=== PATIENT | female | born 1995 | race Caucasian/White ===

== ENCOUNTER 2017-03-31 08:15 | Inpatient (IN) | payer OTHER, BC, MEDICAID ==
[~2017-03-31 08:15] MED LIST: Buffered Lidocaine 0.9% SYRIN* 5 ML/SYR SYRINGE INTRADERM ONE; Sodium Citrate/Citric Acid* 15 ML UDC PO ONE
[2017-03-31] MEDS ORDERED: Sodium Citrate/Citric Acid* 15 ML UDC ONE (08:27)
[2017-03-31] MEDS ORDERED: Heparin VIAL(*) 5000 UNITS/ML VIAL (FIVE THOUSAND) ONE (08:28)
[2017-03-31] MEDS ORDERED: Buffered Lidocaine 0.9% SYRIN* 5 ML/SYR SYRINGE ONE (08:28)
[2017-03-31] MEDS ORDERED: ceFAZolin 1 GM ADVAN(*) 1 GM ADDV.VIAL IVPB ONE (08:28)
[2017-03-31] MEDS ORDERED: ceFAZolin 2 GM PREMIX (*) 50 ML IVPB ONE (08:28)
[2017-03-31] MEDS ORDERED: Clindamycin 900 MG IVPREMIX(* 900 MG/50 ML SDV IV ONE (08:28)
[2017-03-31] MEDS ORDERED: Bupivacaine 0.25% SDV* 30 ML ONE (09:52)
[2017-03-31] MEDS ORDERED: Rocuronium* 10 MG/ML VIAL ONE (10:05)
[2017-03-31] MEDS ORDERED: Lidocaine 2% PF * 5 ML VIAL ONE (10:05)
[2017-03-31] MEDS ORDERED: Propofol* 10 MG/ML 20 ML BTL IV PUSH ONE (10:05)
[2017-03-31] MEDS ORDERED: fentaNYL* 50 MCG/ML 2 ML VIAL (100 MCG VIAL) ONE ×2 (10:06→12:24)
[2017-03-31] MEDS ORDERED: Midazolam* 1 MG/ML 2 ML VIAL (2 MG) ONE (10:06)
[2017-03-31] MEDS ORDERED: Dexamethasone IV* 4 MG/ML 1 ML (4 MG) ONE (10:56)
[2017-03-31] MEDS ORDERED: Neostigmine Methylsulfate* 2 MG/2 ML SYRINGE ONE (11:12)
[2017-03-31] MEDS ORDERED: Glycopyrrolate IV* 0.2 MG/ML 1 ML VIAL ONE (11:12)
[2017-03-31] MEDS ORDERED: Ondansetron INJ* 2 MG/ML VIAL ONE (11:13)
[2017-03-31] MEDS ORDERED: Ketorolac INJ* 30 MG/ML 1 ML VIAL ONE (11:13)
--- NOTE | 2017-03-31 12:21 | SURGPN ---
Brief Operative Note - Surgery Procedures: Procedures Pre-OP Diagnoses: Clinically severe obesity Post-op Diagnosis: same Procedure: Laparoscopic sleeve gastrectomy Surgeon: Chapincito Asst: STUART Barrett Anethesia: AASHISH Rodriguez EBL: minimal IVF: 1300cc LR Specimen: portion of stomach Drains: none
[2017-03-31] MEDS: fentaNYL* 50 MCG/ML 2 ML VIAL (100 MCG VIAL) IV PRN ×2 (12:24→12:30)
[2017-03-31] MEDS ORDERED: diPHENhydraMINE IV* 50 MG/ML 1 ml VIAL (BENADRYL) SLOW PUSH PRN (12:30)
[2017-03-31] MEDS ORDERED: HYDROmorphone* 1 MG/ML 1 ML SYR IV PRN ×2 (12:30→12:55)
[2017-03-31] MEDS ORDERED: HYDROcodone/ACET. 7.5/325 LIQ* 15 ML UDC PO PRN (12:30)
[2017-03-31] MEDS ORDERED: Acetaminophen ADULT LIQ* 650 MG/20.3 ML UDC PO PRN (12:30)
[2017-03-31] MEDS ORDERED: Ondansetron INJ* 2 MG/ML VIAL IV PRN (12:30)
[2017-03-31] MEDS ORDERED: DiMENhydriNATE IV* 50 MG/ML VIAL ONE (12:33)
[2017-03-31] MEDS ORDERED: HYDROmorphone* 1 MG/ML 1 ML SYR ONE (12:55)
[2017-03-31] MEDS ORDERED: Famotidine IV* 10 MG/ML 2 ML (20 mg) ONE (14:49)
[2017-03-31] MEDS: HYDROmorphone* 1 MG/ML 1 ML SYR IV PRN ×3 (14:55→22:09)
[2017-03-31] MEDS: Heparin VIAL(*) 5000 UNITS/ML VIAL (FIVE THOUSAND) SUBCUT SCH ×2 (14:57→22:09)
[2017-03-31] MEDS: Ketorolac INJ* 30 MG/ML 1 ML VIAL IV PRN ×2 (16:24→22:09)
[2017-04-01] MEDS: HYDROmorphone* 1 MG/ML 1 ML SYR IV PRN (01:53)
[2017-04-01] MEDS ORDERED: Famotidine IV* 10 MG/ML 2 ML (20 mg) ONE (03:29)
[2017-04-01] MEDS: Heparin VIAL(*) 5000 UNITS/ML VIAL (FIVE THOUSAND) SUBCUT SCH ×2 (05:48→14:26)
[2017-04-01] MEDS: Ketorolac INJ* 30 MG/ML 1 ML VIAL IV PRN ×2 (05:49→14:35)
--- NOTE | 2017-04-01 09:15 | PN ---
Progress Note - Progress Note Date of Service: 04/01/17 SOAP: Subjective: Pt seen and examined. No N/V. ambulating, urinating, thirsty. Objective: af vss lungs clear abdo: soft/ NT, dressings intact no calf tenderness UGi wnl Assessment: POD 1 sleeve gastrectomy Plan: advance diet d/c planning
--- NOTE | 2017-04-01 09:19 | RAD ---
INDICATION: Status post laparoscopic gastric sleeve procedure of evaluate for leak. COMPARISON: There are no prior studies available for comparison. Technique: An upper GI series exam was performed with Gastrografin contrast. The patient is status post one day post gastric sleeve procedure. Approximately 1.7 minutes of intermittent fluoroscopic guidance were used during the exam. Findings: There is a small amount of free intraperitoneal air under the right hemidiaphragm seen on the initial sheet rock taper image. The patient is status post laparoscopic gastric sleeve procedure. The esophageal peristalsis appeared normal. There is narrowing of the body of the stomach consistent with the patient's surgery. There is slight holdup of contrast in the proximal stomach. The stomach emptied normally. There is no evidence for free intraperitoneal leakage of contrast. IMPRESSION: 1. SMALL AMOUNT OF FREE INTRAPERITONEAL AIR CONSISTENT WITH THE PATIENT'S RECENT SURGERY. 2. STATUS POST GASTRIC SLEEVE PROCEDURE, NO EVIDENCE FOR ANASTOMOTIC LEAK. CPT II Codes: 6045F
[2017-04-01] MEDS ORDERED: D5W 1/2 NS KCl 20 Meq 1000 ML* 1,000 ML IV SCH (14:00)
[2017-04-01 15:29] VITALS: BP 137/78
[2017-04-01] MEDS ORDERED: HYDROcodone/ACET. 7.5/325 LIQ* 15 ML UDC PO PRN (15:41)
--- NOTE | 2017-04-01 16:17 | OP ---
CC: Dr. Shawn Bravo * DATE OF OPERATION: 03/31/17 - ROOM #350 DATE OF : 89 SURGEON: Dony Beckham MD CANAL DRIVER: STUART Welsh ANESTHESIOLOGIST: Dr. Kyle Rodriguez. ANESTHESIA: General anesthesia. PRE-OP DIAGNOSIS: Clinically severe obesity. POST-OP DIAGNOSIS: Clinically severe obesity. OPERATIVE PROCEDURE: Laparoscopic sleeve gastrectomy. ESTIMATED BLOOD LOSS: Minimal blood loss. FLUIDS: 1300 cc of crystalloid fluid given. SPECIMENS: Portion of the stomach. DRAINS: None. DESCRIPTION OF PROCEDURE: The patient was identified in the preoperative area, marked. Case discussed with her again and consent signed. The patient was taken to the operating room, placed on the operating table in the supine position. Preoperative antibiotics were given. Sequential devices were placed on bilateral lower extremities. General anesthesia was induced. The patient's abdomen was prepped and draped in the standard surgical fashion. A time-out was performed. A left upper quadrant incision was made. This was deepened down into the anterior fascia, which was elevated and a Veress needle was inserted into the abdominal cavity, which was then allowed to insufflate to a pressure of 15 mmHg. The patient tolerated the insufflation well. Hettinger between the xiphoid and the umbilicus, just closer to the umbilicus, left of midline, a 12-mm trocar was inserted. The laparoscope was inserted through this and the Veress needle was removed. There was no evidence of injury. A 5 mm trocar was then inserted through this site and additional 5 mm placed in the left lateral site. Additional 12 mm was placed in the right upper quadrant. Attention was then turned towards the stomach. This was decompressed with the OG tube, which was then removed. The patient was placed in a steep reverse Trendelenburg position. The liver was retracted anteriorly and to the right with a Mia retractor that was inserted through another incision at the subxiphoid area. This gave us ability to see the gastroesophageal fat pad. This was retracted towards the right lower quadrant. Blunt dissection was carried out to expose the left arturo. Attention was then turned towards the greater curvature of the stomach and the pylorus. Approximately 6 cm from the pylorus, a retrogastric window was made along the greater curvature. The vasculature to the greater curvature was taken with a LigaSure device right up to the angle of His. Posterior attachments were similarly taken until the stomach could be fully rotated along its axis. Next, a 12 mm trocar at the right upper quadrant was upsized with 15 and a 60-mm black JONI stapler was placed along the greater curvature just 6 cm proximal to the pylorus and extending towards the incisura. Prior to firing the stapler, a 40-Ethiopian bougie was inserted and placed into the distal stomach. Additional firings of 60-mm purple JONI stapling devices with reinforcement strips were utilized right to the top of the stomach, taking care to flare out laterally for the last staple load staying outside the gastroesophageal soft pad. Hemostasis was achieved with 2 clips along the vasculature of the greater curvature. The resected portion of the stomach was then placed in an endoscopic retrieval bag. Mia retractor was removed. There was no evidence of bleeding. Hemostasis was excellent and the specimen was taken through the right upper quadrant port site. The port site was then reapproximated with 0 Polysorb suture with an Endo Close device in a simple fashion. The abdomen was allowed to collapse and all trocars were removed under direct vision. Skin gordon were placed at the skin incision followed by sterile dressing. The patient tolerated the procedure well, was woken up in the OR, and transferred to the PACU in stable condition. [id number]/[facility] #: [id number] GUERLINE
== END 2017-04-01 17:00 | disposition home or self-care (01) | DRG 403 ==
LOC: AA 08:15 → SSU 14:08
PROVIDERS: ADMIT Surgery; ATTEND Surgery
PROC: 0DB64Z3 Excision of Stomach, Percutaneous Endoscopic Approach, Vertical (ICD-10-PCS; principal; 2017-03-31 09:30)
DX: E66.01 Morbid (severe) obesity due to excess calories (principal); F50.81 Binge eating disorder; F32.9 Major depressive disorder, single episode, unspecified; F41.9 Anxiety disorder, unspecified; Z90.49 Acquired absence of other specified parts of digestive tract; Z82.49 Family history of ischemic heart disease and other diseases of the circulatory system; Z80.41 Family history of malignant neoplasm of ovary; Z80.52 Family history of malignant neoplasm of bladder; Z68.42 Body mass index [BMI] 45.0-49.9, adult
CPT/HCPCS: 36415; 74246; 81025; 84300; 88307; 94760; A9270-GY; J0690; J1100; J1170; J1240; J1644; J1885; J2250; J2405; J2704; J3010

== ENCOUNTER 2017-05-12 12:12 | Emergency (ER) | payer OTHER, BC, MEDICAID ==
[2017-05-12 14:06] VITALS: BP 125/69
--- NOTE | 2017-05-12 14:09 | ED ---
Skin Complaint - HPI Summary HPI Summary: Fantasma was on a towel that she used and she noted this spikes/spines stuck in her skin. Today, there was increased redness and irritation. it was itchy at first. mildly tender. - History of Current Complaint Chief Complaint: UCSkin Time Seen by Provider: 05/12/17 13:53 Stated Complaint: RASH Hx Obtained From: Patient Onset/Duration: Started Days Ago Skin Exposure Onset/Duration: Days Ago Timing: Constant Onset Severity: Mild Current Severity: Moderate Skin Location: Discrete - suhail wrists. Aggravating Symptom(s): Nothing, Touch Alleviating Symptom(s): Nothing Associated Signs & Symptoms: Tenderness - Additional Pertinent History Primary Care Physician: [id number] - Allergy/Home Medications Allergies/Adverse Reactions: Allergies Allergy/AdvReac Type Severity Reaction Status Date / Time No Known Allergies Allergy Verified 05/12/17 13:59 PMH/Surg Hx/FS Hx/Imm Hx Previously Healthy: Yes Endocrine/Hematology History: Denies: Hx Diabetes, Hx Thyroid Disease Cardiovascular History: Denies: Hx Hypertension Respiratory History: Denies: Hx Asthma, Hx Chronic Obstructive Pulmonary Disease (COPD) GI History: Reports: Hx Gastroesophageal Reflux Disease, Other GI Disorders - HX OF APPENDECTOMY, CHOLECYSTECTOMY Denies: Hx Ulcer History: Reports: Other Problems/Disorders - HX OF PCOS Sensory History: Reports: Hx Contacts or Glasses - GLASSES Denies: Hx Hearing Aid Opthamlomology History: Reports: Hx Contacts or Glasses - GLASSES Neurological History: Reports: Other Neuro Impairments/Disorders - NUMBNESS, TINGLING IN HANDS OCCASIONALLY UPON WAKING Psychiatric History: Reports: Hx Anxiety, Hx Depression, Hx Panic Disorder, Hx Inpatient Treatment - IN PT TREATMENT FOR A WEEK A TEENAGER, OK NOW Denies: Hx of Violent Episodes Against Others - Surgical History Surgery Procedure, Year, and Place: Gall Bladder, 2009. [place], 2006 Hx Anesthesia Reactions: No Infectious Disease History: Denies: Hx Clostridium Difficile, Hx Hepatitis, Hx Human Immunodeficiency Virus (HIV), Hx of Known/Suspected MRSA, Hx Shingles, Hx Tuberculosis, History Other Infectious Disease - Family History Known Family History: Positive: Cardiac Disease, Hypertension - Social History Lives: With Family Alcohol Use: None Alcohol Amount: 2 DRINKS IN 6 MONTHS Hx Substance Use: No Substance Use Type: Reports: None Hx Tobacco Use: No Smoking Status (MU): Never Smoked Tobacco Have You Smoked in the Last Year: No Review of Systems Positive: Rash All Other Systems Reviewed And Are Negative: Yes Physical Exam Triage Information Reviewed: Yes Vital Signs Reviewed: Yes Appearance: Positive: Well-Appearing, No Pain Distress, Obese Skin: Positive: Other - suhail patches of pink skin slightly swollen. no streaking or significant tenderness. Head/Face: Positive: Normal Head/Face Inspection Eyes: Positive: Normal ENT: Positive: Normal ENT inspection Neck: Positive: Supple, Nontender, No Lymphadenopathy Respiratory/Lung Sounds: Positive: Clear to Auscultation Cardiovascular: Positive: Normal Abdomen Description: Positive: Nontender, No Organomegaly, Soft Musculoskeletal: Negative: Edema Left, Edema Right Neurological: Positive: Sensory/Motor Intact, Alert, Oriented to Person Place, Time Psychiatric: Positive: Normal, Affect/Mood Appropriate Course/Dx - Diagnoses Provider Diagnoses: Toxic effect of venom of caterpillars Discharge - Discharge Plan Condition: Good Disposition: HOME Prescriptions: Triamcinolone 0.1% Oint (NF) [Triamcinolone Acetonide] 1 applic TOPICAL BID #30 gm Patient Education Materials: Insect Bite or Sting (ED) Referrals: Shawn Bravo DO [Primary Care Provider] - If Needed
== END 2017-05-12 14:20 | disposition home or self-care (01) ==
LOC: UCCORT 12:12
DX: T63.431A Toxic effect of venom of caterpillars, accidental (unintentional), initial encounter (principal); Y92.9 Unspecified place or not applicable; X58.XXXA Exposure to other specified factors, initial encounter; K21.9 Gastro-esophageal reflux disease without esophagitis
CPT/HCPCS: 99212; G0463

== ENCOUNTER 2018-05-25 19:25 | Emergency (ER) | payer OTHER, BC ==
--- OUTSIDE RECORDS SUMMARY | 2018-05-25 20:26 | XMS REPORT ---
:1995 External Reference #:[id number] Author Organization [facility] Address [address] [place] [address] Phone [phone] Care Team Providers Name Role Phone BLANCA Ramsey Care Team Information Line Patrolman Unavailable Payers Type Date Identification Numbers Payment Provider Subscriber Commercial Effective: Policy Number: [facility] Luomings 2014 [id number] Service Group Number: [id number] [address] PayID: [id number] [place] [address] Medigap Part B Effective: Policy Number: Julita HOUGH/NABEEL Yas Nasim 2014 [id number] [facility] PayID: [id number] [address] [address] [place] [address] Medigap Part B Effective: 2015 Policy Number: Medicaid [place] En Luomings [id number] PayID: [id number] [address] [place] [address] Problems Date Description Provider Status Onset: 10/04/2015 H/O: depression Evin Downing CNM Active Onset: 10/04/2015 Anxiety disorder Evin Downing CNM Active Family History Date Family Member(s) Problem(s) Comments Father A&W Mother A&W Children 1 First Son A&W Siblings 5 First Brother A&W Second Brother A&W Third Brother A&W First Sister A&W Second Sister A&W Paternal Grandfather due to Bladder Cancer () Paternal Grandmother A&W Maternal Grandfather A&W Maternal Grandmother due to Ovarian Cancer () Social History Type Date Description Comments Education Highest Level Completed Is Ged Marital Status Single Lives With Son Pets 1 dog Pets 3 cats 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 Environmental Hazards Low Lead Risk Cigarette Use Never Smoked Cigarettes ETOH Use Occasionally consumes alcohol Recreational Drug Use Does Not Use Drugs Smoking Patient has never smoked Daily Caffeine Does not consume caffeine Exercise Type/Frequency Exercises rarely Seat Belt/Car Seat Always uses seat belt Currently Active Patient is currently sexually active Contraceptive Methods Current methods include condoms STD's Chlamydia Allergies, Adverse Reactions, Alerts Date Description Reaction Status Severity Comments 04/24/2015 NKDA active Medications Medication Date Status Form Strength Qnty SIG Indications Ordering Provider Fluconazole 03/15/ Active Tablets 150mg 2tabs 1 po and Lisa 2018 repeat in [facility], 48 hours. ANP-C Zoloft / Active Tablets 150mg Unknown 0000 Xyzal Allergy / Active Unknown 24HR 0000 Multivitamin / Active Unknown Women 0000 Buspirone HCL / Active Tablets 15mg Unknown 0000 Diflucan 03/09/ Hx Tablets 150mg 2tabs 1 by mouth Lisa 2018 - times 1 day Jump, 03/11/ repeat in ANP-C 2018 48 hours Terazol 7 07/19/ Hx Cream 0.4% 45gm 1 Ephraim Soto 2016 - applicator Gelber, 03/03/ at bedtime M.D. 2018 x 7 Keflex 07/05/ Hx Capsules 500mg 14caps 1 by mouth Nisha 2016 - twice a day Krzysztof 07/19/ x 7 days 2016 Eliane 07/05/ Hx Tablets 0.35mg 84tabs 1 by mouth Nisha 2016 - every day Krzysztof 03/07/ start 2018 07/05/17 Naproxen 05/22/ Hx Tablets ER 500mg 30tabs take 1 by Phaelon Sodium ER 2015 - 24HR mouth with MD Cherrie 07/19/ food every 2016 12 hours for next 5 days then as needed for pain Ortho 10/31/ Hx Tablets 0.18/0.215 28tabs 1 by mouth Valery Tri-Cyclen Lo 2015 - /0.25 every day Suzy 05/15/ mg-25 mcg , CNM 2015 No Active 10/03/ Hx Mahrie Medications 2016 - Downing, 10/31/ CNM 2016 Diflucan 09/27/ Hx Tablets 150mg 2tabs take 1 by Evin 2016 - mouth for Downing, 10/02/ yeast. CNM 2016 repeat x 1 as needed Terazol 3 07/22/ Hx Cream 0.8% 1tube use 1 Rosa M 2014 - applicator Evelia, 09/12/ every night LM 2016 at bedtime x 3 nights Terconazole 07/02/ Hx Cream 0.8% 20gm 1 Rose Marie 2014 - applicator Willard, 07/06/ per vagina CNM 2014 hs x 3 Medications Administered in Office Medication Date Status Form Strength Qnty SIG Indications Ordering Provider No PT Tbco Administered Injection Lisa SCRN RNG 018 BLANCA Dlaal PT SCRN Tbco Administered Injection Lisa Id as Non User 018 BLANCA Dalal Immunizations CPT Code Status Date Vaccine Lot # [id number] Given 07/25/2015 Tetnus, Diptheria Toxoids And Acellular Pertussis, [id number] PT > 7Yrs Old [id number] Given 06/18/2015 Influenza Virus Vaccine Split Virus Use For [id number] Individual 3Yr Older Vital Signs Date Vital Result Comment 05/04/2018 BP Systolic 126 mmHg BP Diastolic 84 mmHg Height 67 inches 5'7" Weight 208.00 lb BMI (Body Mass Index) 32.6 kg/m2 Last Menstrual Period [id number] 2 Parity 1 03/07/2018 BP Systolic 126 mmHg BP Diastolic 72 mmHg Height 67 inches 5'7" Weight 230.00 lb BMI (Body Mass Index) 36.0 kg/m2 Last Menstrual Period 1857908 2 Parity 1 07/19/2017 BP Systolic 134 mmHg BP Diastolic 90 mmHg Height 67 inches 5'7" Weight 246.00 lb BMI (Body Mass Index) 38.5 kg/m2 Last Menstrual Period [id number] 2 Parity 1 07/05/2017 BP Systolic 120 mmHg BP Diastolic 80 mmHg Height 67 inches 5'7" Weight 248.00 lb BMI (Body Mass Index) 38.8 kg/m2 Last Menstrual Period 6282419 2 Parity 1 03/29/2017 BP Systolic 128 mmHg BP Diastolic 84 mmHg Height 67 inches 5'7" Weight 290.00 lb BMI (Body Mass Index) 45.4 kg/m2 Last Menstrual Period 5302593 2 Parity 1 08/10/2016 BP Systolic 120 mmHg BP Diastolic 70 mmHg Height 67 inches 5'7" Weight 291.00 lb BMI (Body Mass Index) 45.6 kg/m2 2 Parity 1 05/22/2016 BP Systolic 124 mmHg BP Diastolic 72 mmHg Height 67 inches 5'7" Weight 274.00 lb BMI (Body Mass Index) 42.9 kg/m2 Last Menstrual Period 9473509 2 Parity 1 11/01/2015 BP Systolic 124 mmHg BP Diastolic 70 mmHg Height 67 inches 5'7" Weight 242.00 lb BMI (Body Mass Index) 37.9 kg/m2 2 Parity 1 10/04/2015 BP Systolic 138 mmHg BP Diastolic 76 mmHg Height 67 inches 5'7" Weight 246.00 lb BMI (Body Mass Index) 38.5 kg/m2 2 Parity 1 04/24/2015 BP Systolic 120 mmHg BP Diastolic 66 mmHg Height 67 inches 5'7" Weight 195.00 lb BMI (Body Mass Index) 30.5 kg/m2 Results Test Date Test Result H/L Range Note Laboratory test 03/07/2018 Culture Genital & SEE RESULT 1 finding Sensitivity BELOW Urine Culture And 07/19/2017 Urine Culture SEE RESULT 2 Sensitivities BELOW Urine Culture And 07/05/2017 Urine Culture SEE RESULT 3 Sensitivities BELOW CBC With No Diff 09/29/2015 White Blood Count 12.6 10^3/uL High 3.5-10.8 Red Blood Count 4.07 10^6/uL 4.0-5.4 Hemoglobin 12.1 g/dL 12.0-16.0 Hematocrit 36 % 35-47 Mean Corpuscular Volume 89 fL 80-97 Mean Corpuscular Hemoglobin 30 pg 27-31 Mean Corpuscular HGB Conc 34 g/dL 31-36 Red Cell Distribution Width 12 % 10.5-15 Platelet Count 288 10^3/uL 150-450 Mean Platelet Volume 9 um3 7.4-10.4 Laboratory test finding 09/29/2015 Uric Acid 8.9 mg/dL High 2.3-6.6 Comp Metabolic Panel 09/29/2015 Sodium 133 mmol/L 133-145 Potassium 4.1 mmol/L 3.5-5.0 Chloride 103 mmol/L 101-111 Co2 Carbon Dioxide 21 mmol/L Low 22-32 Anion Gap 9 mmol/L 2-11 Glucose 90 mg/dL 70-100 Blood Urea Nitrogen 10 mg/dL 6-24 Creatinine 0.78 mg/dL 0.51-0.95 BUN/Creatinine Ratio 12.8 8-20 Calcium 9.6 mg/dL 8.6-10.3 Total Protein 6.5 g/dL 6.4-8.9 Albumin 3.4 g/dL 3.2-5.2 Globulin 3.1 g/dL 2-4 Albumin/Globulin Ratio 1.1 1-3 Total Bilirubin 0.30 mg/dL 0.2-1.0 Alkaline Phosphatase 127 U/L High 34-104 Alt 9 U/L 7-52 Ast 16 U/L 13-39 Egfr Non- 92.4 >60 Egfr 118.8 >60 4 Type And Screen 09/29/2015 Patient Blood Type O Positive Antibody Screen NEGATIVE Laboratory test finding 09/29/2015 Urine Protein Negative Negative CBC With No Diff 09/29/2015 White Blood Count 11.3 10^3/uL High 3.5-10.8 Red Blood Count 4.12 10^6/uL 4.0-5.4 Hemoglobin 12.1 g/dL 12.0-16.0 Hematocrit 37 % 35-47 Mean Corpuscular Volume 90 fL 80-97 Mean Corpuscular Hemoglobin 29 pg 27-31 Mean Corpuscular HGB Conc 33 g/dL 31-36 Red Cell Distribution Width 13 % 10.5-15 Platelet Count 283 10^3/uL 150-450 Mean Platelet Volume 9 um3 7.4-10.4 Laboratory test finding 09/29/2015 Uric Acid 8.9 mg/dL High 2.3-6.6 Comp Metabolic Panel 09/29/2015 Sodium 133 mmol/L 133-145 Potassium 3.9 mmol/L 3.5-5.0 Chloride 103 mmol/L 101-111 Co2 Carbon Dioxide 20 mmol/L Low 22-32 Anion Gap 10 mmol/L 2-11 Glucose 91 mg/dL 70-100 Blood Urea Nitrogen 11 mg/dL 6-24 Creatinine 0.81 mg/dL 0.51-0.95 BUN/Creatinine Ratio 13.6 8-20 Calcium 9.3 mg/dL 8.6-10.3 Total Protein 6.4 g/dL 6.4-8.9 Albumin 3.3 g/dL 3.2-5.2 Globulin 3.1 g/dL 2-4 Albumin/Globulin Ratio 1.1 1-3 Total Bilirubin 0.20 mg/dL 0.2-1.0 Alkaline Phosphatase 117 U/L High 34-104 Alt 9 U/L 7-52 Ast 14 U/L 13-39 Egfr Non- 88.4 >60 Egfr 113.7 >60 5 Laboratory test finding 09/05/2015 Genital For GRP B Strep SEE RESULT BELOW 6 Only Gardnerella/Yeast: Vaginal Dna SEE RESULT BELOW 7 Laboratory test 07/25/2015 Culture Genital & SEE RESULT BELOW 8 finding Sensitivity Laboratory test 07/11/2015 Glucose 1 HR Post 104 mg/dL 70-160 finding Prandial CBC With No Diff 07/11/2015 White Blood Count 12.5 10^3/uL High 3.5-10.8 Red Blood Count 3.68 10^6/uL Low 4.0-5.4 Hemoglobin 11.3 g/dL Low 12.0-16.0 Hematocrit 34 % Low 35-47 Mean Corpuscular Volume 93 fL 80-97 Mean Corpuscular Hemoglobin 31 pg 27-31 Mean Corpuscular HGB Conc 33 g/dL 31-36 Red Cell Distribution Width 12 % 10.5-15 Platelet Count 292 10^3/uL 150-450 Mean Platelet Volume 8 um3 7.4-10.4 Quad Screen 04/24/2015 HAN Interpretation SEE NOTE 9 Risk For NTD (Osb) LESS THAN 1:5000 10 Risk For Down Based On Age 1:1146 Risk For Down Based On SCR 1:4035 <1:270 Trisomy 18 Risk Based On SCR LESS THAN 1:5000 <1:100 11 Afp,Serum 27.7 NG/ML Adjusted Mom 0.94 12 HCG,Serum 47.778 IU/mL Mom 1.78 Estriol,Free 1.08 NG/ML Mom 1.25 Inhibin A 186 pg/mL Mom 1.26 Comment SEE NOTE 13 Date Of 1995 ENEDINA 10/05/2015 ENEDINA Determined By ULTRASOUND Gestational Age 16.6 WEEKS Weight 195 LBS Race =W Insulin Dependent Diabetic NO Repeat Sample NO Number Of Fetuses 1 History Of NTD NO Date Of Draw 04/24/2015 Food Sanitarian SEE NOTE 14 [place] Panel w/ Fragile X 04/24/2015 Abcc8-related hyperinsulinism Negative achromatopsia Negative alkaptonuria Negative alpha-1 antitrypsin deficiency Negative alpha-mannosidosis Negative Andermann syndrome Negative Arsacs Negative aspartylglycosaminuria Negative ataxia with vitamin E deficiency Negative ataxia-telangiectasia Negative autosomal recessive polycystic kidney disease Negative Bardet-Biedl syndrome, BBS1-related Negative Bardet-Biedl syndrome, [id number] Negative biotinidase deficiency Negative Stock syndrome Negative Morris disease Negative carnitine palmitoyltransferase Ia deficiency Negative carnitine palmitoyltransferase II deficiency Negative cartilage-hair hypoplasia Negative choroideremia Negative citrullinemia type 1 Negative CLN3-related neuronal ceroid lipofuscinosis Negative CLN5-related neuronal ceroid lipofuscinosis Negative Mccord syndrome Negative congenital disorder of glycosylation type Ia Negative congenital disorder of glycosylation type Ib Negative congenital English nephrosis Negative Costeff optic atrophy syndrome Negative cystic fibrosis Negative cystinosis Negative D-bifunctional protein deficiency Negative factor XI deficiency Negative familial dysautonomia Negative familial Mediterranean fever Negative Fanconi anemia type C Negative fragile X syndrome Negative galactosemia Negative Gaucher disease Negative GJB2-related DFNB1 nonsyndromic hearing loss and deafness Negative glutaric acidemia type 1 Negative glycogen storage disease type Ia Negative glycogen storage disease type Ib Negative glycogen storage disease type III Negative glycogen storage disease type V Negative Gracile syndrome Negative Hb beta chain-related hemoglobinopathy Negative hereditary fructose intolerance Negative hereditary thymine-uraciluria Negative Herlitz junctional epidermolysis bullosa, Lama3-related Negative Herlitz junctional epidermolysis bullosa, Lamb3-related Negative Herlitz junctional epidermolysis bullosa, Lamc2-related Negative hexosaminidase A deficiency Negative homocystinuria caused by cystathionine beta-synthase deficiency Negative Hurler syndrome Negative hypophosphatasia, autosomal recessive Negative inclusion body myopathy 2 Negative isovaleric acidemia Negative Patricia syndrome 2 Negative Krabbe disease Negative limb-girdle muscular dystrophy type 2D Negative limb-girdle muscular dystrophy type 2E Negative lipoamide dehydrogenase deficiency Negative long chain 7-gsblmfxmuhm-YqF dehydrogenase deficiency Negative maple syrup urine disease type 1B Negative medium chain acyl-CoA dehydrogenase deficiency Negative megalencephalic leukoencephalopathy with subcortical cysts Negative metachromatic leukodystrophy Negative mucolipidosis IV Negative oedett-sas-dclwk disease Negative Neb-related nemaline myopathy Negative Florin-Pick disease type C Negative Florin-Pick disease, SMPD1-associated Negative Nijmegen breakage syndrome Negative Northern epilepsy Negative Pendred syndrome Positive High 15 Pex1-related Zellweger syndrome spectrum Negative phenylalanine hydroxylase deficiency Negative polyglandular autoimmune syndrome type 1 Negative Pompe disease Negative PPT1-related neuronal ceroid lipofuscinosis Negative primary carnitine deficiency Negative primary hyperoxaluria type 1 Negative primary hyperoxaluria type 2 Negative Prop1-related combined pituitary hormone deficiency Negative pseudocholinesterase deficiency Negative pycnodysostosis Negative rhizomelic chondrodysplasia punctata type 1 Negative Salla disease Negative Segawa syndrome Negative short chain acyl-CoA dehydrogenase deficiency Negative Sjogren-Lon syndrome Negative Bexxg-Csdaj-Bzuzd syndrome Negative spinal muscular atrophy Negative steroid-resistant nephrotic syndrome Negative sulfate transporter-related osteochondrodysplasia Negative TPP1-related neuronal ceroid lipofuscinosis Negative tyrosinemia type I Negative Usher syndrome type 1F Negative Usher syndrome type 3 Negative very long chain acyl-CoA dehydrogenase deficiency Negative Mesfin disease Negative X-linked juvenile retinoschisis Negative PDF Report SEE IMAGE Urine Culture And Sensitivities 04/24/2015 Urine Culture SEE RESULT BELOW 16 1 SEE RESULT BELOW Name: EN ROUSE : [address]: Lisa Staton Acct: [id number] Unit: [id number] AGE: 22 Location: [facility] Re03/07/18 SEX: F Status: REG REF SPEC: [id number] CAMILA: 03/07/18-[address]: Lisa Staton REQ: [id number] RECD: 03/07/180819 STATUS: COMP _ SOURCE: VAGINAL SPDESC: ORDERED: Genital Culture COMMENTS: [id number] Procedure Result Reported Site Genital Culture Final 03/11/18- 1053 ML Organism 1 MADDISON DUBLINIENSIS Quantity 2+ Organism 2 NORMAL MILLER Quantity 2+ * ML - Main Lab . END OF REPORT DEPARTMENT OF PATHOLOGY, [address] [place] [address] Jose Guadalupe Balderas M.D. Director [facility] # [id number] 2 SEE RESULT BELOW Name: EN ROUSE : [address]: Ephraim Alvarado MD Acct: [id number] Unit: [id number] AGE: 22 Location: [facility] Re07/19/17 SEX: F Status: REG REF SPEC: [id number] CAMILA: 07/19/17-[address]: Ephraim Alvarado MD REQ: [id number] RECD: 07/19/17 STATUS: COMP _ SOURCE: URINE SPDESC: ORDERED: Urine Culture COMMENTS: [id number] Urine Source: Random Procedure Result Reported Site Urine Culture Final 07/21/17- 1053 ML No Growth (<1,000 CFU/mL) * ML - MAIN LAB (PSYCHIATRIC1) . END OF REPORT * ML=Testing performed at Main Lab DEPARTMENT OF PATHOLOGY, [address] [place] [address] Jose Guadalupe Balderas M.D. Director [facility] # [id number] 3 SEE RESULT BELOW Name: EN ROUSE : [address]: Nisha Blankenship MD Acct: [id number] Unit: [id number] AGE: 21 Location: [facility] Re07/05/17 SEX: F Status: REG REF SPEC: [id number] CAMILA: 07/05/17-1356 [facility] DR: Nisha Blankenship MD REQ: [id number] RECD: 07/05/177059 STATUS: COMP _ SOURCE: URINE SPDES: ORDERED: Urine Culture COMMENTS: [id number] Urine Source: Random Procedure Result Reported Site Urine Culture Final 07/07/17- 0908 ML No growth of clinically significant organisms * ML - MAIN LAB (PSYCHIATRIC1) . END OF REPORT * ML=Testing performed at Main Lab DEPARTMENT OF PATHOLOGY, [address] [place] [address] Jose Guadalupe Balderas M.D. Director [facility] # [id number] 4 Because ethnic data is not always readily available, this report includes an eGFR for both -Americans and non- Americans. The National Kidney Disease Education Program (NKDEP) does not endorse the use of the MDRD equation for patients that are not between the ages of 18 and 70, are , have extremes of body size, muscle mass, or nutritional status, or are non- or non-. According to the National Kidney Foundation, irrespective of diagnosis, the stage of the disease is based on the level of kidney function: Stage Description GFR(mL/min/1.73 m(2)) 1 Kidney damage with normal or decreased GFR 90 2 Kidney damage with mild decrease in GFR 60-89 3 Moderate decrease in GFR 30-59 4 Severe decrease in GFR 15-29 5 Kidney failure <15 (or dialysis) 5 Because ethnic data is not always readily available, this report includes an eGFR for both -Americans and non- Americans. The National Kidney Disease Education Program (NKDEP) does not endorse the use of the MDRD equation for patients that are not between the ages of 18 and 70, are , have extremes of body size, muscle mass, or nutritional status, or are non- or non-. According to the National Kidney Foundation, irrespective of diagnosis, the stage of the disease is based on the level of kidney function: Stage Description GFR(mL/min/1.73 m(2)) 1 Kidney damage with normal or decreased GFR 90 2 Kidney damage with mild decrease in GFR 60-89 3 Moderate decrease in GFR 30-59 4 Severe decrease in GFR 15-29 5 Kidney failure <15 (or dialysis) 6 SEE RESULT BELOW Name: EN ROUSE : [address]: Rosa M KELLY Acct: [id number] Unit: [id number] AGE: 20 Location: [facility] Re09/05/15 SEX: F Status: REG REF SPEC: [id number] CAMILA: 09/05/15-[address]: Rosa M KELLY REQ: [id number] RECD: 09/05/15 STATUS: COMP _ SOURCE: CER/VAG/RE SPDESC: ORDERED: Grp B Strp Scrn QUERIES: Is Patient Penicillin Allergic? N Is patient penicillin allergic and/or sensitivities needed? N Provider Requisition # C77#[id number]_ Procedure Result Reported Site Group B Strep Culture Screen Final 09/08/15- 1137 ML Group B Strep Screen Negative * ML - MAIN LAB (PSYCHIATRIC1) . END OF REPORT * ML=Testing performed at Main Lab DEPARTMENT OF PATHOLOGY, [address] [place] [address] Jose Guadalupe Balderas M.D. Director [facility] # [id number] 7 SEE RESULT BELOW Name: EN ROUSE : [address]: Rosa M KELLY Acct: [id number] Unit: [id number] AGE: 20 Location: [facility] Re09/05/15 SEX: F Status: REG REF SPEC: [id number] CAMILA: 09/05/15-[address]: Rosa M KELLY REQ: [id number] RECD: 09/05/15 STATUS: COMP _ SOURCE: VAGINAL SPDESC: ORDERED: Shannon,Yeast DNA, Trich DNA Procedure Result Reported Site Gardnerella/Yeast: Vaginal DNA Final 09/06/15- 1435 ML Organism 1 Negative Gardnerella Organism 2 POSITIVE MADDISON The presence of G. vaginalis, although suggestive, is not diagnostic for bacterial vaginosis. Results should be interpreted in conjuction with other clinical and laboratory data available. Women with vaginal discharge should be evaluated for risk factors of cervicitis and pelvic inflammatory disease, toxic shock syndrome (S.aureus), and if present, evaluated for organisms not included in this assay such as N. gonorrhoeae, C. trachomatis, Mobiluncus, Mycoplasma and/or Prevotella. Mixed infections may occur. The performance of this test on patient specimens collected during or immediately after antimicrobial therapy is unknown. The presence or absence of Maddison species, or G. vaginalis cannot be used as a test for therapeutic success or failure. Trichomonas: Vaginal DNA Probe Final 09/06/15- 1435 ML Organism 1 Negative Trichomonas CONTINUED ON NEXT PAGE * ML=Testing performed at [facility] DEPARTMENT OF PATHOLOGY, [address] [place] [address] Jose Guadalupe Balderas M.D. Director [facility] # [id number] Patient: EN ROUSE [id number] (Continued) Specimen: [id number] Collected: 09/05/15-1029 Received: 09/05/15-1701 (Continued) Procedure Result Reported Site Trichomonas: Vaginal DNA Probe Final (continued) 09/06/15- 1435 The presence or absence of T. vaginalis cannot be used as a test for therapeutic success or failure. * ML - MAIN LAB ([facility]) . END OF REPORT * ML=Testing performed at Main Lab DEPARTMENT OF PATHOLOGY, [address] [place] [address] Jose Guadalupe Balderas M.D. Director [facility] # [id number] 8 SEE RESULT BELOW Name: ROUSE,EN : [address]: Ellie Willard [facility] Acct: [id number] Unit: [id number] AGE: 20 Location: [facility] Re07/25/15 SEX: F Status: REG REF SPEC: [id number] CAMILA: 07/25/15 [facility] DR: Ellie Willard [facility] REQ: [id number] RECD: 07/29/15 STATUS: COMP _ SOURCE: [facility]: ORDERED: Genital Culture Procedure Result Reported Site Genital Culture Final 08/01/15- 1216 ML Organism 1 KLEBSIELLA PNEUMONIAE Quantity 3+ Organism 2 STAPHYLOCOCCUS AUREUS Quantity 2+ Organism 3 NORMAL MILLER Quantity 3+ Routine genital cultures do not include selective agar for Neisseria gonorrhoeae. Molecular testing offers better test sensitivity and therefore is the preferred test methodology for identifying this organism. 1. KLEBSIELLA PNEUMONIAE M.I.C. RX --------- ------ Ampicillin >=32 R Cefazolin <=4 S Cefepime <=1 S Ceftriaxone <=1 S Ciprofloxacin <=0.25 S Gentamicin <=1 S Levofloxacin <=0.12 S Meropenem <=0.25 S Nitrofurantoin 64 I Tetracycline <=1 S Pipercillin/Tazobactam <=4 S Trimethoprim/Sulfamethoxazole <=20 S CONTINUED ON NEXT PAGE * ML=Testing performed at Main Lab DEPARTMENT OF PATHOLOGY, [address] [place] [address] Jose Guadalupe Balderas M.D. Director [facility] # [id number] Patient: ROUSEMARY LOU BreauxA [id number] (Continued) Specimen: [id number] Collected: 07/25/15 Received: 07/29/15 (Continued) Procedure Result Reported Site Genital Culture Final (continued) 08/01/15- 1216 1. KLEBSIELLA PNEUMONIAE (continued) M.I.CTerell RX --------- ------ Amoxicillin/Clavulanic Acid <=2 S Aztreonam <=1 S 2. STAPHYLOCOCCUS AUREUS M.I.C. RX --------- ------ Penicillin >=0.5 R Clindamycin <=0.25 S Erythromycin <=0.25 S Gentamicin <=0.5 S Linezolid 2 S Nitrofurantoin <=16 S Oxacillin 0.5 S * Quinupristin/Dalfopristin <=0.25 S Rifampin <=0.5 S Tetracycline <=1 S Doxycycline - Deduced S * Minocycline - Deduced S Trimethoprim/Sulfamethoxazole <=10 S Vancomycin 1 S Imipenem-Deduced S * Ampicillin/Sulbactam-Deduced S Cefazolin-Deduced S * These antibiotics are not available in the [facility] Formulary Contact the Microbiology Department for any additional antibiotic reporting. CONTINUED ON NEXT PAGE * ML=Testing performed at Main Lab DEPARTMENT OF PATHOLOGY, [address] [place] [address] Jose Guadalupe Balderas M.D. Director [facility] # [id number] Patient: EN ROUSE [id number] (Continued) Specimen: [id number] Collected: 07/25/15 Received: 07/29/15 (Continued) Procedure Result Reported Site Genital Culture Final (continued) Contact the Microbiology Department for any additional antibiotic reporting. * ML - MAIN LAB (PSYCHIATRIC1) . END OF REPORT * ML=Testing performed at Main Lab DEPARTMENT OF PATHOLOGY, [address] [place] [address] Jose Guadalupe Balderas M.D. Director [facility] # [id number] 9 SCREEN NEGATIVE FOR OPEN NTD, DS AND TRISOMY 18. 10 LESS THAN 1:5000 11 LESS THAN 1:5000 12 ADJUSTED AFP MOM INTERPRETIVE CUTOFFS: <2.50 ADJUSTED MOM <1.90 ADJUSTED MOM FOR INSULIN-DEPENDENT DIABETES <4.00 ADJUSTED MOM FOR TWINS <3.50 ADJUSTED MOM FOR TWINS INSULIN-DEPENDENT DIABETES <4.50 ADJUSTED MOM FOR TRIPLETS <4.00 ADJUSTED MOM FOR TRIPLETS INSULIN-DEPENDENT DIABETES 13 PERFORMANCE OF MATERNAL SERUM AFP, HCG, ESTRIOL, AND DIMERIC INHIBIN A PROVIDES A USEFUL SCREENING TEST FOR DETECTION OF OPEN NEURAL TUBE DEFECTS AND SOME CHROMOSOMAL ABNORMALITIES. IT SHOULD BE NOTED THAT NORMAL RESULTS CAN NEVER GUARANTEE THE OF A NORMAL BABY AND THAT 2 TO 3 PERCENT OF [place] HAVE SOME TYPE OF PHYSICAL OR MENTAL DEFECT, MANY OF WHICH ARE UNDETECTABLE THROUGH ANY KNOWN DIAGNOSTIC TECHNIQUE. THIS IS A SCREENING TEST, NOT A DIAGNOSTIC TEST. THIS RISK ASSESSMENT REPORT IS BASED IN PART ON DEMOGRAPHIC DATA PROVIDED BY THE ORDERING PHYSICIAN. PLEASE NOTIFY THE LAB PROMPTLY IF ANY DATA IS INCORRECT. FOR ASSISTANCE WITH RECALCULATIONS, PLEASE CALL YOUR LOCAL [facility] AT . FOR ASSISTANCE WITH INTERPRETATION OF THESE RESULTS, PLEASE CALL [phone]. 14 REVIEWED BY Jerilyn NEGRO M.D. 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 Carriers generally do not experience symptoms. 16 SEE RESULT BELOW Name: [place] : [address]: Ellie Willard CNM Acct: [id number] Unit: [id number] AGE: 19 Location: [facility] Re04/24/15 SEX: F Status: REG REF SPEC: [id number] CAMILA: 04/24/15-[address]: Ellie Willard CNM REQ: [id number] RECD: 04/25/15521 STATUS: COMP _ SOURCE: URINE SPDESC: ORDERED: Urine Culture Procedure Result Verified Site Urine Culture Final 04/27/15- 1007 ML No Growth Day 2 (<1,000 CFU/mL) * ML - MAIN LAB (PSC1) . END OF REPORT * ML=Testing performed at Main Lab DEPARTMENT OF PATHOLOGY, [address] [place] [address] Jose Guadalupe Balderas M.D. Director [facility] # [id number] Procedures Date CPT Code Description Status 05/04/2018 30236 Echography Transvaginal Completed 08/10/2016 69291 Echography Transvaginal Completed 09/30/2015 49398 Obstetric Care Routine Completed 08/22/2015 92024 Biophysical Profile Without Non Stress Test Completed 08/22/2015 56862 Echography Uterus Follow-Up Or Repeat Completed 07/25/2015 77824 Injection Intramuscular Or Subcutaneous Completed 05/21/2015 98315 Echography Uterus Complete Completed Encounters Type Date Location Provider CPT E/M Dx Office Visit 03/07/2018 1:20p [facility] Lisa Katlin, ANP-C 65209 R10.30 N76.0 Office Visit 07/19/2017 2:00p [facility] Ephraim Alvarado M.D. 40760 B37.3 Office Visit 07/05/2017 10:40a [place] [address] N39.0 Z30.011 Office Visit 08/10/2016 11:00a [place] [address] N83.202 Office Visit 05/22/2016 11:30a [place] [address] N83.202 E66.9 Office Visit 10/04/2015 11:40a [facility] Evin Downing CNM 17920 O90.6 Office Visit 04/30/2015 1:30p [place] [address] Z34.82 R10.813 Plan of Care 07/19/2017 - Ephraim Alvarado M.D.B37.3 Candidiasis of vulva and vaginaComments :terazole 7
[2018-05-25 20:31] VITALS: BP 146/86
[2018-05-25] MEDS ORDERED: Cephalexin CAP* 500 MG PO ONE ×2 (20:58→20:59)
--- NOTE | 2018-05-25 20:58 | UC ---
Skin Complaint HPI - HPI Summary HPI Summary: 22-year-old woman comes in with a complaint of right elbow rash. Patient had some swelling there several days ago. She was able to express some pus from the area. Today redness started spreading and it is streaking up to her mid upper arm. No fevers does feel mildly ill. No history of MRSA. - History of Current Complaint Chief Complaint: UCSkin Time Seen by Provider: 05/25/18 20:48 Stated Complaint: RIGHT ELBOW POSSIBLE INFECTION Hx Last Menstrual Period: 05/23/18 Pain Intensity: 4 - Allergy/Home Medications Allergies/Adverse Reactions: Allergies Allergy/AdvReac Type Severity Reaction Status Date / Time No Known Allergies Allergy Verified 05/25/18 20:28 Home Medications: Home Medications Loratadine [Claritin 10 MG CAP] 10 mg PO DAILY 05/25/18 [History Confirmed 05/25] Review of Systems Constitutional: Negative Skin: Rash Eyes: Negative ENT: Negative Respiratory: Negative Cardiovascular: Negative Gastrointestinal: Negative Motor: Negative Neurovascular: Negative Musculoskeletal: Negative Neurological: Negative Psychological: Negative Is Patient Immunocompromised?: No All Other Systems Reviewed And Are Negative: Yes PMH/Surg Hx/FS Hx/Imm Hx Previously Healthy: Yes Psychological History: Anxiety, Depression - Surgical History Surgical History: Yes Surgery Procedure, Year, and Place: Gall Bladder, 2008. Appy, 2005. gastric sleeve 03/2017 - Family History Known Family History: Positive: Cardiac Disease, Hypertension Negative: Diabetes - Social History Alcohol Use: Rare Alcohol Amount: 2 DRINKS IN 6 MONTHS Substance Use Type: Marijuana Substance Use Comment - Amount & Last Used: multiple times a week Smoking Status (MU): Never Smoked Tobacco Have You Smoked in the Last Year: No - Immunization History Most Recent Influenza Vaccination: NOT YET 2017 Most Recent Tetanus Shot: 07/25/15 Most Recent Pneumonia Vaccination: n/a Physical Exam Triage Information Reviewed: Yes Appearance: Well-Appearing, No Pain Distress, Well-Nourished Vital Signs: Initial Vital Signs Temp 97.8 F 05/25/18 20:26 Pulse 77 05/25/18 20:26 Resp 16 05/25/18 20:26 BP 146/86 05/25/18 20:26 Pulse Ox 99 05/25/18 20:26 Eye Exam: Normal Eyes: Positive: Conjunctiva Clear ENT: Negative: Muffled voice Neck exam: Normal Neck: Positive: Supple Musculoskeletal Exam: Normal Musculoskeletal: Positive: Strength Intact, ROM Intact Neurological Exam: Normal Neurological: Positive: Alert, Muscle Tone Normal Psychological Exam: Normal Psychological: Positive: Age Appropriate Behavior Skin: Positive: Other - On the right elbow there is a 4 cm diameter erythematous area of it's warm to touch. There is some streaking proximally to the mid humerus. There is no drainage. Course/Dx - Diagnoses Provider Diagnoses: RIGHT ELBOW CELLULITIS Discharge - Sign-Out/Discharge Documenting (check all that apply): Patient Departure All imaging exams completed and their final reports reviewed: No Studies - Discharge Plan Condition: Stable Disposition: HOME Prescriptions: Cephalexin CAP* [Keflex CAP*] 500 mg PO QID #37 cap Patient Education Materials: Cellulitis (ED) Referrals: Natasha Cobb [Primary Care Provider] - Additional Instructions: FOLLOW UP WITH YOUR DOCTOR. GO TO THE EMERGENCY DEPARTMENT FOR ANY WORSENING OF YOUR CONDITION; SPREAD OF INFECTION, FEVER, YOU FEEL ILL OR QUESTIONS OR CONCERNS. - Billing Disposition and Condition Condition: STABLE Disposition: Home
== END 2018-05-25 21:09 | disposition home or self-care (01) ==
LOC: UCCORT 19:25
DX: L03.113 Cellulitis of right upper limb (principal); F12.90 Cannabis use, unspecified, uncomplicated
CPT/HCPCS: 99212; A9270-GY; G0463

== ENCOUNTER 2018-08-30 11:35 | Emergency (ER) | payer OTHER, BC ==
[2018-08-30 12:58] VITALS: BP 147/85
--- NOTE | 2018-08-30 13:10 | UC ---
Throat Pain/Nasal Jono HPI - HPI Summary HPI Summary: nasal congestion x 5 days cough , pnd , no sore throat. low grade fever, chills - History of Current Complaint Chief Complaint: UCRespiratory Stated Complaint: FEVER,COUGH,STUFFY NOSE Time Seen by Provider: 08/30/18 12:50 Hx Obtained From: Patient Hx Last Menstrual Period: 08/02/18 Onset/Duration: Gradual Onset, Lasting Days - 5, Still Present Severity: Moderate Pain Intensity: 0 Cough: Nonproductive Associated Signs & Symptoms: Positive: Sinus Discomfort, Nasal Discharge, Fever. Negative: Dysphagia, FB Sensation, Drooling, Wheezing, Hoarseness, Vomiting, Rash - Allergies/Home Medications Allergies/Adverse Reactions: Allergies Allergy/AdvReac Type Severity Reaction Status Date / Time No Known Allergies Allergy Verified 08/30/18 12:54 PMH/Surg Hx/FS Hx/Imm Hx Previously Healthy: Yes - Surgical History Surgical History: Yes Surgery Procedure, Year, and Place: Gall Bladder, 2008. Appy, 2005. gastric sleeve 03/2017 - Family History Known Family History: Positive: Cardiac Disease, Hypertension Negative: Diabetes - Social History Alcohol Use: Occasionally Alcohol Amount: 2 DRINKS IN 6 MONTHS Substance Use Type: None Substance Use Comment - Amount & Last Used: multiple times a week Smoking Status (MU): Never Smoked Tobacco Have You Smoked in the Last Year: No - Immunization History Most Recent Influenza Vaccination: NOT YET 2017 Most Recent Tetanus Shot: 07/25/15 Most Recent Pneumonia Vaccination: n/a Review of Systems All Other Systems Reviewed And Are Negative: Yes Constitutional: Positive: Fever, Chills, Fatigue Skin: Positive: Negative Eyes: Positive: Negative ENT: Positive: Nasal Discharge, Sinus Congestion, Sinus Pain/Tenderness. Negative: Sore Throat Respiratory: Positive: Cough Cardiovascular: Positive: Negative Is Patient Immunocompromised?: No Physical Exam Triage Information Reviewed: Yes Appearance: Well-Appearing, No Pain Distress, Well-Nourished Vital Signs: Initial Vital Signs Temp 99.5 F 08/30/18 12:56 Pulse 100 08/30/18 12:56 Resp 17 08/30/18 12:56 BP 147/85 08/30/18 12:56 Pulse Ox 99 08/30/18 12:56 Vital Signs Reviewed: Yes Eye Exam: Normal Eyes: Positive: Conjunctiva Clear ENT: Positive: Normal ENT inspection, Hearing grossly normal, Pharynx normal, Nasal congestion, Nasal drainage, TMs normal. Negative: TM bulging, TM dull, TM red, Tonsillar swelling, Tonsillar exudate Neck exam: Normal Neck: Positive: Supple, Nontender, No Lymphadenopathy Respiratory: Positive: Chest non-tender, Lungs clear, Normal breath sounds, No respiratory distress Cardiovascular: Positive: RRR, No Murmur, Pulses Normal, Brisk Capillary Refill Abdominal Exam: Normal Throat Pain/Nasal Course/Dx - Differential Dx/Diagnosis Provider Diagnosis: URI (upper respiratory infection) Discharge - Sign-Out/Discharge Documenting (check all that apply): Patient Departure All imaging exams completed and their final reports reviewed: No Studies - Discharge Plan Condition: Stable Disposition: HOME Patient Education Materials: Upper Respiratory Infection (ED) Referrals: Natasha Cobb [Primary Care Provider] - If Needed - Billing Disposition and Condition Condition: STABLE Disposition: Home
== END 2018-08-30 13:11 | disposition home or self-care (01) ==
LOC: UCCORT 11:35
DX: J06.9 Acute upper respiratory infection, unspecified (principal)
CPT/HCPCS: 99211; G0463

== ENCOUNTER 2019-01-07 08:22 | Emergency (ER) | payer OTHER, BC ==
--- OUTSIDE RECORDS SUMMARY | 2019-01-07 08:29 | XMS REPORT | Continuity of Care Document ---
:1995 External Reference #:[id number] Author Name Oxana Will PA Address [address] [place] [address] Care Team Providers Name Role Phone Jam Lacey NP Care Team Information Medical Support Assistant Unavailable Payers Date Identification Numbers Payment Provider Subscriber Policy Number: [id number] [employer] [place] Rouse PayID: [id number] [address] [place] [address] Effective: 2018 Policy Number: [id number] [facility] Commercial Yas Rouse Group Number: CLASSIC BLUE [id number] [address] [address] Group Name: UNRULY [place] [id number] PayID: [id number] Expires: 2018 Policy Number: [id number] Medicaid En [place] PayID: [id number] [address] [place] [address] Problems Active Problems Provider Date Oral contraceptive prescribed Ellie Boles PA Onset: 10/05/2012 Anxiety state Ellie Boles PA Onset: 09/04/2011 Allergic rhinitis Jam Lacey NP Onset: 09/20/2017 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 Onset: 11/08/2018 Resolved Problems Flatulence, eructation and gas pain Ellie Boles PA Onset: 08/16/2012 Resolved: 09/20/2017 Recurrent major depressive episodes Ellie Boles PA Onset: 02/10/2012 Resolved: 09/20/2017 Family History Date Family Member(s) Observation Comments General Cancer, Ovarian MGM Father Hypertension Father Hypercholesterolemia Social History Type Date Description Comments Sex Unknown Education Highest level completed, 12th grade Lives With Son 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 [employer] 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 Use Occasionally consumes alcohol Tobacco Use Start: Unknown Patient has never smoked Recreational Drug Use Formerly used Marijuana sporadically Smoking Status Reviewed: 11/08/18 Patient has never smoked Allergies, Adverse Reactions, Alerts Description No Known Drug Allergies Medications Active Medications SIG Qnty Indications Ordering Provider Date Proair HFA 2 puffs every 4 1units J20.9 Digiovanna, 10/06/2017 108(90Base) hours as needed 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 as needed 500mg Tablets mdd - 3 grams per day Benadryl Allergy 1 tablet by Unknown 25mg mouth every 12 Tablets hours as needed Buspirone HCL take 1 tablet by 90tabs Digiovanna, 10mg mouth three Jam, TIME CYCLE OPERATOR Tablets times a day Propranolol HCL ER 1 by mouth every jacquelyn darnell md 80mg day Caps ER 24HR History Medications Amoxicillin 1 by mouth twice 20tabs Nica Robison, 12/08/2018 - 875mg a day for 10 days 01/05/2019 Tablets Fluconazole 1 tablet by mouth 1tabs Adolfo Almanza, 11/10/2018 - 150mg x 1 DO 11/11/2018 Tablets Azithromycin 2 tablets by 6tabs J20.9 Adolfo Almanza, 06/09/2018 - 250mg mouth on day 1 DO 06/14/2018 Tablets then 1 tablet on days 2-5 Miconazole 7 Insert 1 7units N76.0 Digiovanrick, 04/25/2018 - 100mg vaginally every 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, TIME CYCLE OPERATOR 05/02/2018 Suppository hs for 7 nights Benzonatate 2 po every 8 60caps J06.9 Digiovanna, 04/01/2018 - 100mg hours as needed Jam, MELISSA 04/11/2018 Capsules for cough Benzonatate 1 by mouth every 30caps J20.9 Digiovanna, 10/06/2017 - 200mg 8 hours as needed 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, TIME CYCLE OPERATOR 03/04/2018 Capsules for cough, may cause drowsiness Zoloft 1 1/2 by mouth 135tabs Shelly, 03/18/2017 - 100mg Tablets every day Shawn, DO 04/28/2017 Sulfamethoxazole/Tri 1 by mouth twice 14tabs R35.0 Adolfo Almanza, 2015 - methoprim DS a day DO 04/30/2016 800-160mg Tablets Erythromycin apply to RIGHT 3.500gm H01.003 Adolfo Almanza, 04/23/2016 - 5mg/GM eyelid 3x a day x DO 04/30/2016 Ointment 1 week Fluconazole 1 by mouth daily 1tabs Adolfo Almanza, 12/20/2015 - 150mg as needed DO 12/21/2015 Tablets Symbicort 2 puffs by mouth sample R07.9 Adolfo Almanza, 12/10/2015 - twice a day DO 12/31/2015 160-4.5mcg/Act Aerosol Bupropion HCL ER 1 by mouth every 30tabs Adolfo Almanza, 11/29/2015 - (XL) day DO 12/31/2015 150mg Tablets ER 24HR Trazodone HCL 1-2 by mouth 60tabs Adolfo Almanza, 11/29/2015 - 50mg every night at DO 02/05/2016 Tablets bedtime Venlafaxine HCL 1 by mouth every 30tabs Adolfo Almanza, 11/26/2015 - 75mg day DO 12/31/2015 Tablets Venlafaxine HCL ER 1 by mouth every 30caps Adolfo Almanza, 11/08/2015 - day DO 11/26/2015 37.5mg Caps ER 24HR Buspirone HCL 1 by mouth 2-3x a 45tabs Adolfo Almanza, 11/08/2015 - 5mg day as needed for DO 11/15/2015 Tablets anxiety Fluticasone 1 spray each 16units H68.003 Adolfo Almanza, 10/22/2015 - Propionate nostril twice a DO 03/09/2016 50mcg/Act day Suspension Omeprazole 1 by mouth bid 60caps R07.9 Adolfo Almanza, 10/15/2015 - 20mg DO 11/29/[address] Metronidazole 1 by mouth twice 10tabs Adolfo Almanza, 11/30/2014 - 500mg a day x 5 days DO 12/05/2014 Tablets Apri 1 by mouth every 28tabs Adolfo Almanza, 04/24/2014 - Tablets day DO 11/27/2014 Imiquimod apply to affected 24units Adolfo Almanza, 09/21/2013 - 5% Cream area 3x a week DO 06/11/2015 for maximunum of 16 weeks Effexor XR 1 po qd Unknown - 75mg Caps 06/11/2015 ER 24HR Clonazepam 1 po bid Unknown - 1mg 06/11/2015 Tablets Complete 1 by mouth every Unknown - day 11/29/2015 14-0.4mg Tablets Zoloft 1 by mouth every Family & - 150mg Tablets day Childrens 03/18/2017 [facility] Allergy 24HR 1 by mouth every J30.9 Unknown - day 11/30/2017 5mg Tablets Sulfamethoxazole-Tri 1 by mouth twice Unknown - pmethoprim a day x 7 days 05/31/2018 800-160mg Tablets Medications Administered in Office Medication SIG Qnty Indications Ordering Provider Date PPD Schedule, Nurses 03/18/2018 Injection PPD Jam Lacey, MELISSA 03/04/2018 Injection PPD Schedule, Nurses 02/07/2018 Injection Immunizations CPT Code Status Date Vaccine Reaction Lot # [id number] Given 12/06/2018 Menactra/Menveo Meningococcal [id number] Vaccine 56987 Given 12/06/2018 MMR Virus Immunization [id number] 10937 Given 09/20/2017 Tdap (Adacel) Ages 7 And Above [id number] Only 17796 Given 06/16/2017 Afluria Or Fluvirin Flu Vac Intramuscular 47126 Given 11/13/2008 HPV Vaccine (Gardasil) 3 Dose Schedule 81066 Given 07/16/2008 HPV Vaccine (Gardasil) 3 Dose Schedule 90943 Given 05/14/2008 HPV Vaccine (Gardasil) 3 Dose PT TOLERATED [facility] Schedule 54961 Given 04/26/2007 Tdap (Adacel) Ages 7 And Above Only 37365 Given 07/02/1999 Varicella (Chicken Pox) [facility] Immunization 75158 Given 12/31/1998 MMR Virus Immunization [facility] 42494 Given 03/02/1995 Oral Poliovirus Immunization [facility] 53936 Given 03/02/1995 DTP Immunization [facility] 16878 Given 11/30/1994 MMR Virus Immunization [facility] 35652 Given 01/30/1994 Hepatitis B Vac Ped/Adolescent 3 [facility] Dose Schedule 02836 Given 01/30/1994 Oral Poliovirus Immunization [facility] 14159 Given 01/30/1994 DTP Immunization [facility] 85095 Given 1993 Hepatitis B Vac Ped/Adolescent 3 [facility] Dose Schedule 09396 Given 1993 Oral Poliovirus Immunization [facility] 54459 Given 1993 DTP Immunization [facility] 67679 Given 1993 Hepatitis B Vac Ped/Adolescent 3 [facility] Dose Schedule 64013 Given 1993 Oral Poliovirus Immunization [facility] 14985 Given 1993 DTP Immunization [facility] 94999 Refused 06/09/2018 Influenza Vac, Quadrivalent, Split, 0.5mL Dosage, Im Use Vital Signs Date Vital Result Comment 01/05/2019 10:56am Body Temperature 99.3 F Apap 4 Hours Ago Weight 220.00 lb Heart Rate 80 /min BP Systolic 136 mmHg BP Diastolic 80 mmHg Respiratory Rate 18 /min Height 67.5 inches 5'7.50" 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,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 BMI (Body Mass Index) 33.9 kg/m2 12/08/2018 2:22pm Body Temperature 102.0 F tympanic Weight 216.31 lb Heart Rate 100 /min BP Systolic 118 mmHg BP Diastolic 84 mmHg Respiratory Rate 16 /min Height 67.5 inches 5'7.50" 03/04/18 SA,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 O2 % BldC Oximetry 97 % Room Air BMI (Body Mass Index) 33.4 kg/m2 11/08/2018 2:23pm Weight 220.00 lb Heart Rate 84 /min BP Systolic 124 mmHg BP Diastolic 76 mmHg Respiratory Rate 16 /min Height 67.5 inches 5'7.50" 03/04/18 SA,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 BMI (Body Mass Index) 33.9 kg/m2 Last Menstrual Period [id number] urine HCG neg 06/09/2018 10:31am Body Temperature 98.8 F Apap 2.5 Hours Ago Weight 201.00 lb Heart Rate 100 /min BP Systolic 130 mmHg BP Diastolic 80 mmHg Respiratory Rate 18 /min Height 67.5 inches 5'7.50" 03/04/18 SA,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 O2 % BldC Oximetry 98 % BMI (Body Mass Index) 31.0 kg/m2 06/04/2018 8:49am Weight 202.50 lb Heart Rate 84 /min BP Systolic 122 mmHg BP Diastolic 76 mmHg Respiratory Rate 16 /min Height 67.5 inches 5'7.50" 03/04/18 SA,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 BMI (Body Mass Index) 31.2 kg/m2 05/31/2018 11:06am Weight 203.00 lb Heart Rate 84 /min BP Systolic 118 mmHg BP Diastolic 80 mmHg Respiratory Rate 16 /min Height 67.5 inches 5'7.50" 03/04/18 SA,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 BMI (Body Mass Index) 31.3 kg/m2 04/25/2018 4:01pm Weight 215.25 lb Heart Rate 80 /min BP Systolic 118 mmHg BP Diastolic 80 mmHg Respiratory Rate 16 /min Height 67.5 inches 5'7.50" 03/04/18 SA,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 BMI (Body Mass Index) 33.2 kg/m2 04/01/2018 2:38pm Body Temperature 97.9 F Weight 224.00 lb Heart Rate 82 /min BP Systolic 120 mmHg BP Diastolic 80 mmHg Respiratory Rate 18 /min Height 67.5 inches 5'7.50" 03/04/18 SA,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 O2 % BldC Oximetry 94 % BMI (Body Mass Index) 34.6 kg/m2 03/04/2018 3:07pm Weight 227.44 lb Heart Rate 84 /min BP Systolic 128 mmHg BP Diastolic 82 mmHg Respiratory Rate 16 /min Height 67.5 inches 5'7.50" 03/04/18 SA,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 BMI (Body Mass Index) 35.1 kg/m2 Last Menstrual Period [id number] reg, no prob 10/06/2017 4:16pm Body Temperature 99.5 F tympanic Weight 241.31 lb Heart Rate 112 /min BP Systolic 136 mmHg BP Diastolic 86 mmHg Respiratory Rate 18 /min Height 67.5 inches 5'7.50" O2 % BldC Oximetry 98 % On room air BMI (Body Mass Index) 37.2 kg/m2 09/20/2017 3:24pm Weight 245.31 lb Heart Rate 80 /min BP Systolic 116 mmHg BP Diastolic 76 mmHg Respiratory Rate 16 /min Height 67.5 inches 5'7.50" BMI (Body Mass Index) 37.9 kg/m2 03/18/2017 2:52pm Weight 296.00 lb Heart Rate 92 /min BP Systolic 128 mmHg BP Diastolic 80 mmHg Respiratory Rate 18 /min Height 67.5 inches 5'7.50" BMI (Body Mass Index) 45.7 kg/m2 12/07/2016 4:18pm Weight 298.12 lb Heart Rate 104 /min 100 reg BP Systolic 118 mmHg BP Diastolic 86 mmHg Respiratory Rate 16 /min Height 67.5 inches 5'7.50" O2 % BldC Oximetry 97 % ra BMI (Body Mass Index) 46.0 kg/m2 04/23/2016 1:02pm Body Temperature 97.9 F Weight 266.00 lb Heart Rate 80 /min BP Systolic 130 mmHg BP Diastolic 70 mmHg Respiratory Rate 16 /min Height 67.5 inches 5'7.50" BMI (Body Mass Index) 41.0 kg/m2 04/03/2016 1:04pm Weight 258.00 lb Heart Rate 78 /min BP Systolic 142 mmHg BP Diastolic 90 mmHg Respiratory Rate 18 /min 03/09/2016 11:28am Weight 259.00 lb Heart Rate 72 /min BP Systolic 138 mmHg BP Diastolic 90 mmHg Respiratory Rate 18 /min O2 % BldC Oximetry 98 % Ra 02/05/2016 4:16pm Weight 254.00 lb Heart Rate 76 /min BP Systolic 124 mmHg BP Diastolic 80 mmHg Respiratory Rate 18 /min 01/20/2016 1:03pm Body Temperature 98.0 F Weight 255.00 lb Heart Rate 100 /min BP Systolic 126 mmHg BP Diastolic 84 mmHg Respiratory Rate 18 /min Height 67.5 inches 5'7.50" O2 % BldC Oximetry 9798 % BMI (Body Mass Index) 39.3 kg/m2 12/31/2015 11:39am Weight 248.00 lb Heart Rate 64 /min BP Systolic 112 mmHg BP Diastolic 70 mmHg Respiratory Rate 18 /min Height 67.5 inches 5'7.50" BMI (Body Mass Index) 38.3 kg/m2 12/19/2015 1:04pm Weight 248.00 lb Heart Rate 72 /min BP Systolic 130 mmHg BP Diastolic 82 mmHg Respiratory Rate 18 /min Height 67.5 inches 5'7.50" BMI (Body Mass Index) 38.3 kg/m2 12/10/2015 1:55pm Body Temperature 98.9 F Weight 248.00 lb Heart Rate 108 /min BP Systolic 120 mmHg BP Diastolic 84 mmHg Respiratory Rate 18 /min Height 67.5 inches 5'7.50" O2 % BldC Oximetry 9798 % BMI (Body Mass Index) 38.3 kg/m2 11/29/2015 10:04am Weight 236.00 lb Heart Rate 118 /min BP Systolic 134 mmHg BP Diastolic 88 mmHg Respiratory Rate 17 /min Height 67.5 inches 5'7.50" BMI (Body Mass Index) 36.4 kg/m2 11/15/2015 10:12am Weight 237.00 lb Heart Rate 108 /min BP Systolic 118 mmHg BP Diastolic 72 mmHg Respiratory Rate 18 /min Height 67.5 inches 5'7.50" O2 % BldC Oximetry 98 % BMI (Body Mass Index) 36.6 kg/m2 11/08/2015 11:08am Weight 239.00 lb Heart Rate 90 /min BP Systolic 130 mmHg BP Diastolic 80 mmHg Respiratory Rate 18 /min Height 67.5 inches 5'7.50" O2 % BldC Oximetry 98 % BMI (Body Mass Index) 36.9 kg/m2 10/22/2015 9:59am Body Temperature 98.8 F Weight 240.00 lb Heart Rate 92 /min BP Systolic 118 mmHg BP Diastolic 70 mmHg Respiratory Rate 18 /min Height 67.5 inches 5'7.50" O2 % BldC Oximetry 98 % BMI (Body Mass Index) 37.0 kg/m2 10/15/2015 1:48pm Weight 237.00 lb Heart Rate 94 /min BP Systolic 120 mmHg BP Diastolic 90 mmHg Respiratory Rate 16 /min Height 67.5 inches 5'7.50" BMI (Body Mass Index) 36.6 kg/m2 06/11/2015 11:25am Weight 214.00 lb Heart Rate 94 /min BP Systolic 122 mmHg BP Diastolic 78 mmHg Respiratory Rate 18 /min Height 67.5 inches 5'7.50" O2 % BldC Oximetry 9899 % BMI (Body Mass Index) 33.0 kg/m2 12/10/2014 1:47pm Weight 150.00 lb Heart Rate 80 /min BP Systolic 132 mmHg BP Diastolic 70 mmHg Respiratory Rate 18 /min Height 67.5 inches 5'7.50" BMI (Body Mass Index) 23.1 kg/m2 11/27/2014 12:58pm Weight 156.00 lb BP Systolic 130 mmHg BP Diastolic 76 mmHg Height 67.5 inches 5'7.50" BMI (Body Mass Index) 24.1 kg/m2 04/24/2014 10:01am Weight 135.00 lb Heart Rate 70 /min BP Systolic 114 mmHg BP Diastolic 70 mmHg Respiratory Rate 18 /min Height 67.5 inches 5'7.50" 02/21/2014 1:34pm Body Temperature 98.9 F Weight 136.00 lb Down 4# Heart Rate 72 /min BP Systolic 130 mmHg BP Diastolic 70 mmHg Respiratory Rate 18 /min Height 67.5 inches 5'7.50" 02/19/2014 11:32am Weight 140.00 lb Heart Rate 72 /min BP Systolic 130 mmHg BP Diastolic 80 mmHg Respiratory Rate 18 /min Height 67.5 inches 5'7.50" 09/21/2013 10:02am Weight 143.00 lb Heart Rate 74 /min BP Systolic 134 mmHg BP Diastolic 90 mmHg Respiratory Rate 18 /min 08/21/2013 11:01am Weight 133.00 lb Heart Rate 74 /min BP Systolic 128 mmHg BP Diastolic 78 mmHg Respiratory Rate 18 /min Height 67.5 inches 5'7.50" 08/07/2013 11:04am Weight 131.50 lb Heart Rate 72 /min BP Systolic 140 mmHg BP Diastolic 80 mmHg Respiratory Rate 18 /min 07/31/2013 11:25am Weight 126.00 lb Heart Rate 74 /min BP Systolic 130 mmHg BP Diastolic 80 mmHg Respiratory Rate 18 /min 07/27/2013 11:14am Weight 126.00 lb Heart Rate 84 /min BP Systolic 138 mmHg BP Diastolic 86 mmHg Respiratory Rate 17 /min 2013 2:45pm Weight 125.00 lb Heart Rate 88 /min BP Systolic 132 mmHg BP Diastolic 80 mmHg Respiratory Rate 18 /min 07/10/2013 9:32am Weight 130.00 lb Heart Rate 72 /min BP Systolic 126 mmHg BP Diastolic 70 mmHg Respiratory Rate 18 /min 06/26/2013 1:33pm Weight 133.00 lb Heart Rate 70 /min BP Systolic 120 mmHg BP Diastolic 70 mmHg Respiratory Rate 18 /min 06/05/2013 1:59pm Weight 130.00 lb Heart Rate 72 /min BP Systolic 110 mmHg BP Diastolic 68 mmHg Respiratory Rate 18 /min 05/25/2013 10:43am Weight 130.00 lb Heart Rate 82 /min BP Systolic 130 mmHg BP Diastolic 88 mmHg Respiratory Rate 18 /min 04/25/2013 10:37am Weight 130.00 lb Heart Rate 72 /min BP Systolic 120 mmHg BP Diastolic 70 mmHg Respiratory Rate 18 /min 04/10/2013 9:43am Weight 137.00 lb Heart Rate 72 /min BP Systolic 120 mmHg BP Diastolic 70 mmHg Respiratory Rate 18 /min 03/21/2013 1:41pm Weight 139.00 lb Heart Rate 74 /min BP Systolic 130 mmHg BP Diastolic 70 mmHg Respiratory Rate 18 /min 02/21/2013 3:14pm Weight 138.00 lb Heart Rate 70 /min BP Systolic 110 mmHg BP Diastolic 60 mmHg Respiratory Rate 18 /min 02/09/2013 1:19pm Weight 142.00 lb Heart Rate 70 /min BP Systolic 120 mmHg BP Diastolic 70 mmHg Respiratory Rate 18 /min 01/25/2013 1:18pm Weight 142.00 lb Heart Rate 74 /min BP Systolic 122 mmHg BP Diastolic 74 mmHg Respiratory Rate 18 /min 01/05/2013 2:26pm Weight 140.00 lb Down 12 LBS Heart Rate 72 /min BP Systolic 112 mmHg BP Diastolic 76 mmHg Respiratory Rate 16 /min Height 68 inches 5'8" 10/05/2012 9:01am Weight 152.00 lb Heart Rate 68 /min BP Systolic 110 mmHg BP Diastolic 68 mmHg Respiratory Rate 18 /min 08/16/2012 8:28am Weight 156.00 lb Heart Rate 74 /min BP Systolic 110 mmHg BP Diastolic 70 mmHg Respiratory Rate 18 /min 07/06/2012 8:31am Weight 154.00 lb Heart Rate 80 /min BP Systolic 100 mmHg BP Diastolic 60 mmHg Respiratory Rate 18 /min Height 68 inches 5'8" 06/20/2012 11:11am Body Temperature 97.8 F Weight 154.00 lb Up 7# Heart Rate 76 /min BP Systolic 114 mmHg BP Diastolic 76 mmHg Respiratory Rate 18 /min Height 68 inches 5'8" 06/06/2012 8:54am Weight 147.00 lb Heart Rate 88 /min BP Systolic 124 mmHg BP Diastolic 70 mmHg Respiratory Rate 18 /min Height 68 inches 5'8" 05/24/2012 11:32am Body Temperature 98.1 F Weight 149.00 lb Heart Rate 72 /min BP Systolic 122 mmHg BP Diastolic 70 mmHg Respiratory Rate 18 /min Height 68 inches 5'8" 05/10/2012 8:54am Weight 151.00 lb Heart Rate 72 /min BP Systolic 132 mmHg BP Diastolic 82 mmHg Respiratory Rate 20 /min Height 68 inches 5'8" 02/24/2012 9:58am Weight 154.00 lb Heart Rate 68 /min BP Systolic 110 mmHg BP Diastolic 72 mmHg Respiratory Rate 15 /min 02/10/2012 2:35pm Weight 159.00 lb Heart Rate 76 /min BP Systolic 120 mmHg BP Diastolic 70 mmHg Respiratory Rate 18 /min Height 68 inches 5'8"01/28/2012 10:35am Weight 161.00 lb Heart Rate 78 /min BP Systolic 110 mmHg BP Diastolic 68 mmHg Respiratory Rate 18 /min Height 68 inches 5'8"12/24/2011 8:38am Weight 165.00 lb Down 17# Heart Rate 78 /min BP Systolic 128 mmHg BP Diastolic 80 mmHg Respiratory Rate 18 /min Height 68 inches 5'8"11/19/2011 8:42am BP Systolic 112 mmHg BP Diastolic 80 mmHg 11/19/2011 8:42am Weight 182.00 lb Heart Rate 78 /min BP Systolic 138 mmHg BP Diastolic 88 mmHg Respiratory Rate 18 /min Height 68 inches 5'8"11/04/2011 8:47am Weight 193.00 lb Heart Rate 90 /min BP Systolic 142 mmHg BP Diastolic 88 mmHg Respiratory Rate 18 /min Height 68 inches 5'8"10/07/2011 9:00am Weight 193.00 lb Heart Rate 70 /min BP Systolic 120 mmHg BP Diastolic 72 mmHg Respiratory Rate 20 /min Height 68 inches 5'8" 10/01/2011 11:05am Weight 188.38 lb Heart Rate 90 /min BP Systolic 138 mmHg BP Diastolic 78 mmHg Respiratory Rate 17 /min Height 68 inches 5'8" 09/04/2011 8:32am Weight 189.00 lb Heart Rate 74 /min BP Systolic 140 mmHg BP Diastolic 80 mmHg Respiratory Rate 20 /min Height 68 inches 5'8" 10/17/2009 1:02pm Body Temperature 98.4 F Weight 168.00 lb Heart Rate 80 /min BP Systolic 142 mmHg BP Diastolic 92 mmHg 10/07/2009 1:40pm Weight 168.00 lb Heart Rate 80 /min BP Systolic 130 mmHg BP Diastolic 90 mmHg 10/04/2009 10:04am BP Systolic 132 mmHg BP Diastolic 82 mmHg 10/04/2009 10:04am Body Temperature 98.7 F Weight 163.00 lb Heart Rate 90 /min BP Systolic 150 mmHg BP Diastolic 96 mmHg 08/14/2009 9:33am BP Systolic 126 mmHg BP Diastolic 82 mmHg 08/14/2009 9:33am Body Temperature 97.7 F Weight 152.00 lb Heart Rate 92 /min BP Systolic 150 mmHg BP Diastolic 100 mmHg 07/09/2008 1:02pm BP Systolic 136 mmHg BP Diastolic 88 mmHg 07/09/2008 1:02pm Body Temperature 100.9 F Weight 187.00 lb Heart Rate 122 /min BP Systolic 152 mmHg BP Diastolic 90 mmHg Respiratory Rate 24 /min 05/14/2008 3:21pm Weight 190.00 lb Heart Rate 80 /min BP Systolic 110 mmHg BP Diastolic 70 mmHg Respiratory Rate 17 /min Height 67.25 inches 5'7.25" 04/26/2007 3:38pm Weight 175.00 lb Heart Rate 72 /min BP Systolic 136 mmHg BP Diastolic 80 mmHg Respiratory Rate 18 /min Height 66.5 inches 5'6.50" 11/26/2006 9:09am Body Temperature 98.4 F Weight 153.00 lb Heart Rate 82 /min BP Systolic 112 mmHg BP Diastolic 68 mmHg Respiratory Rate 24 /min 03/26/2006 3:40pm Weight 172.00 lb Heart Rate 78 /min BP Systolic 150 mmHg BP Diastolic 90 mmHg Respiratory Rate 24 /min Height 65.25 inches 5'5.25" Results Test Date Facility Test Result H/L Range Note Laboratory test [facility] Monospot <pending> finding 9 Laboratory test [facility] Throat Culture Microbiology res 1 finding 9 <SEE NOTE> Laboratory test [facility] Allia 2 finding 9 [phone] <SEE NOTE> Laboratory test [facility] Pap Smear Thin SEE NOTE 3 finding 9 Prep Affirm [facility] Trichomonas Negative Negative 9 Vaginalis Gardnerella Vaginalis Negative Negative Maddison Species Positive Abnormal Negative Differential-WBC Confirm 09/16/2018 [facility] Total Cells 100 #CELLS 4 (315)- - Counted Neutrophils% 49 % N 33-73 Lymph% 34 % N 20-42 Monocyte% 15 % High 0-10 Eosinophil% 1 % N 0-5 Basophil% 1 % N 0-2 Platelet Estimate NORMAL RBC Morphology NORMAL Laboratory test 09/16/2018 [facility] Slide Review DIFF ORDERED finding (315)- - CBS W/Automated 09/16/2018 [facility] White Blood 8.7 K/ uL N 3.1-10. Diff (315)- - Count 7 Red Blood Count 4.24 M/uL N 3.90-5.40 Hemoglobin 12.9 gm/dL N 11.6-15.8 Hematocrit 37.8 % N 36.0-46.1 Mean Cell Volume 89.2 fl N 80.9-99.0 Mean Corpuscular HGB 30.4 pg N 25.9-32.7 Mean Corpuscular HGB Conc 34.1 g/dL N 30.8-34.3 Platelet Count 340 K/uL N 155-360 Red Cell Distri Width SD 36.7 fl N 36-47 Red Cell Distri Width %CV 11.5 % Low 11.7-14.4 Mean Platelet Volume 9.3 fL N 8.9-12.4 Neut% 57.3 % N 40.4-72.8 Lymph % 33.4 % N 20.0-42.0 Mccreary % 7.6 % N 4.3-13.2 Eo% 1.5 % N 0.0-6.6 Bas% 0.2 % N 0.0-1.1 Neut# 4.99 K/uL N 1.8-7.0 Lymph # 2.91 K/uL N 1.0-4.0 Mccreary # 0.66 K/uL N 0.3-0.9 Eos # 0.13 K/uL N 0.0-0.5 Baso # 0.02 K/uL N 0.0-0.1 Laboratory test 09/16/2018 [facility] Troponin-I < 0.015 ng/mL 5 finding (315)- - HCG,Serum (Qualitative) NEGATIVE (Negative) 6 Comprehensive Metabolic 09/16/2018 [facility] Glucose 77 mg/dL N 74-106 Panel (315)- - BUN 12 mg/dL N 7-18 Creatinine 0.7 mg/dL 0.6-1.3 Glom Filtration Rate, Estimate >60 mL/min >60 If >60 mL/min >60 7 BUN/Creat 17.1 ratio Sodium 140 mmol/L N 136-145 Potassium 3.6 mmol/L N 3.5-5.1 Chloride 106 mmol/L N 98-107 Carbon Dioxide 29 mmol/L N 21-32 Anion Gap 5 mEq/L Low 8-16 Calcium 8.9 mg/dL N 8.5-10.1 Total Protein 7.8 g/dL N 6.4-8.2 Albumin 3.8 g/dL N 3.4-5.0 Globulin 4.0 g/dL N 1.9-4.3 Alb/Glob 1.0 ratio Bilirubin,Total 0.4 mg/dL N 0.2-1.0 Sgot/Ast 11 U/L Low 15-37 8 SGPT/Alt 17 U/L N 12-78 Alkaline Phosphatase 84 U/L N 45-117 Laboratory test 06/04/2018 [facility] Urine Culture SPECIMEN 9 finding [phone] DESCRIP <SEE NOTE> Laboratory test 06/04/2018 [facility] Misc Genital SPECIMEN 10 finding [phone] Culture DESCRIP <SEE NOTE> Laboratory test 06/04/2018 [facility] Vaginitis Direct SPECIMEN 11 finding [phone] Test DESCRIP <SEE NOTE> Affirm 04/25/2018 [facility] Trichomonas Negative Negative Vaginalis Gardnerella Vaginalis Negative Negative Maddison Species Positive Abnormal Negative Laboratory test finding 03/04/2018 [facility] Rubella Igg AB EQUIVOCAL AI 12 Measles Igg AB EQUIVOCAL AI 13 Mumps Igg (Immune) NEGATIVE AI 14 Varicella Zost Igg POSITIVE AI 15 Laboratory 03/04/2018 [facility] Hepatitis C NON REACTIVE Non Reactive 16 test finding Virus Antibody S/CORatio([facility] Lipid 03/04/2018 [facility] Cholesterol 298 mg/dL High 50-199 Triglycerides 278 mg/dL High 30-200 HDL 33 mg/dL Low 35-85 17 Chol/ HDL Ratio 9.0 ratio High 3.7-5.6 VLDL 56 mg/dL High 2-29 LDL (Calc) 209 mg/dL High 20-99 18 GC/Chlamydia By Dna 03/04/2018 [facility] Chlamydia by Dna NEGATIVE Negative Probe Probe GC by Dna Probe NEGATIVE Negative Laboratory test finding 12/23/2016 [facility] Glucose 107 mg/dL High 70-105 Hemoglobin A1c 12/23/2016 [facility] Hemoglobin A1c 5.8 % 4.1-5.9 Estimated Average Glucose Calc 120 71-140 Laboratory test finding 12/08/2016 [facility] TSH 1.54 uIU/mL 0.35-4.94 Free T4 0.78 ng/dL 0.70-1.48 Basic (BMP) 12/08/2016 [facility] Sodium 138 mmol/L 135-146 19 Potassium 4.2 mmol/L 3.5-5.2 Chloride# 104 mmol/L 97-110 20 Carbon Dioxide 27 mmol/L 24-34 Glucose 147 mg/dL High 70-105 BUN 11 mg/dL 6-26 Creatinine 0.7 mg/dL 0.5-1.4 Calcium 9.6 mg/dL 8.5-10.2 Non Vanessa Egfr >60 >60 21 Vanessa Egfr >60 >60 22 Anion Gap 11 mmol/L 7-16 23 Laboratory test 04/23/2016 [facility]rine Culture Microbiology res 24 finding <SEE NOTE> Laboratory test 04/03/2016 [facility] Culture Microbiology res 25 finding <SEE NOTE> GC/Chlamydia By 04/03/2016 [facility] Chlamydia by Dna NEGATIVE Negative Dna Probe Probe GC by Dna Probe NEGATIVE Negative Affirm 04/03/2016 [facility] Trichomonas Vaginalis Negative Negative Gardnerella Vaginalis Negative Negative Maddison Species Negative Negative Affirm 12/19/2015 [facility] Trichomonas Vaginalis Negative Negative Gardnerella Vaginalis Negative Negative Maddison Species Positive Abnormal Negative Laboratory test 12/19/2015 [facility] Urine Microbiology res 26 finding Culture <SEE NOTE> Laboratory test 04/05/2015 [facility] HCG, Quant 33780.0 mIU/mL 27 finding (315)- - CBC 04/05/2015 [facility] White Blood 13.6 K/uL High 3.1-1 (315)- - Count 0.7 Red Blood Count 3.48 M/uL Low 3.90-5.40 Hemoglobin 11.2 gm/dL Low 11.6-15.8 Hematocrit 31.8 % Low 36.0-46.1 Mean Cell Volume 91.4 fl 80.9-99.0 Mean Corpuscular HGB 32.2 pg 25.9-32.7 Mean Corpuscular HGB Conc 35.2 g/dL High 30.8-34.3 Platelet Count 299 K/uL 155-360 Red Cell Distri Width %CV 12.0 % 11.7-14.4 Mean Platelet Volume 10.0 fL 8.9-12.4 Urinalysis With 04/04/2015 [facility] Urine Color YELLOW Yellow Microscopic (315)- - Urine Clarity CLEAR Clear Urine Glucose - Dipstick NEGATIVE mg/dL Negative Urine Bilirubin - Dipstick NEGATIVE Negative Urine Ketone NEGATIVE mg/dL Negative Urine Specific [place] <=1.005 Low 1.010-1.030 Urine Blood LARGE High Negative Urine PH 7.0 6.5-7.5 Urine Protein - Dipstick NEGATIVE mg/dL Negative Urine Urobilinogen - Dipstick 0.2 E.U./dL 0.2-1.0 Urine Nitrite - Dipstick NEGATIVE Negative Urine Leuk Esterase NEGATIVE Negative Urine RBC 0-2 rbc/hpf 0-2 Urine WBC 0-2 wbc/hpf 0-7 Urine Epithelial Cells FEW NONESEEN/lpf Urine Bacteria FEW NONESEEN Urine Amorph Sediment SMALL Negative Urine Screen 04/04/2015 [facility] Urine Screen See Note 28 (315)- - Laboratory 03/28/2015 [facility] D-Dimer, 0.61 ug/mL 29 test finding (315)- - Quantitative Laboratory 12/10/2014 [facility] Microbiology res 30 test finding <SEE NOTE> Laboratory 12/10/2014 [facility] HCG,Quant Preg <1 mU/mL 31 test finding GC/Chlamydia 11/27/2014 [facility] Chlamydia by Dna NEGATIVE Negative By Dna Probe Probe GC by Dna Probe NEGATIVE Negative Affirm 11/27/2014 [facility] Trichomonas Vaginalis Negative Negative Gardnerella Vaginalis Positive Abnormal Negative Maddison Species Negative Negative Laboratory test finding 03/11/2014 [facility] Abo/RH Type O Pos 32 HCG, Quant 219597.0 mIU/mL 33 Laboratory test 03/11/2014 [facility] Urine Amorph Small Negative finding Sediment Urine Bilirubin - Dipstick Negative Negative Urine Blood Large High Negative Urine Clarity Clear Clear Urine Color Yellow Yellow Urine Epithelial Cells Few None Seen /lpf Urine Glucose - Dipstick Negative mg/dL Negative Urine Ketone Negative mg/dL Negative Urine Leuk Esterase Negative Negative Urine Nitrite - Dipstick Negative Negative Urine PH 5.5 Low 6.5-7.5 Urine Protein - Dipstick Negative mg/dL Negative Urine RBC 2-5 rbc/hpf 0-7 Urine Screen See Note 34 Urine Specific [place] <=1.005 Low 1.010-1.030 Urine Urobilinogen - Dipstick 0.2 E.U./dL 0.2-1.0 Urine WBC None Seen wbc/hpf 0-7 Laboratory test finding 03/01/2014 [facility] Antibody Detection See Note 35 Antibody Screen Negative Negative Free T4 1.14 ng/dL 0.71-1.85 Hepatitis B Surface Antigen Nonreactive Nonreactive 36 Lead,Blood (Adult) <1 ug/dL 0-19 37 Patient Blood Type O Pos Rapid Plasma Reagin Nonreactive Nonreactive 38 Rubella IgG Antibody Reactive Reactive Rubella IgG Iu/ml 14.7 IU/mL >=10.0 39 Thyroid Stim Hormone 0.63 uIU/mL 0.49-4.67 Varicella-Zoster Virus IgG Ab 509 Immune>165ind 40 CBS W/Automated Diff 03/01/2014 [facility] Import Bas% 0.4 % 0.0-1.1 Baso # 0.04 K/uL 0.0-0.1 Eo% 0.5 % 0.0-6.6 Eos # 0.05 K/uL 0.0-0.5 Hematocrit 34.8 % Low 36.0-46.1 Hemoglobin 12.5 gm/dL 11.6-15.8 Lymph # 1.71 K/uL 0.8-3.4 Lymph % 16.8 % Low 17.0-46.1 Mean Cell Volume 88.1 fl 80.9-99.0 Mean Corpuscular HGB 31.6 pg 25.9-32.7 Mean Corpuscular HGB Conc 35.9 g/dL High 30.8-34.3 Mean Platelet Volume 9.7 fL 8.9-12.4 Mccreary # 0.62 K/uL High 0.0-0.6 Mccreary % 6.1 % 4.3-13.2 Neut# 7.78 K/uL High 1.0-7.0 Neut% 76.2 % High 28.0-68.0 Platelet Count 355 K/uL 155-360 Red Blood Count 3.95 M/uL 3.90-5.40 Red Cell Distri Width %CV 11.4 % Low 11.7-14.4 Red Cell Distri Width SD 36.4 fl 3-47 White Blood Count 10.2 K/uL 3.1-10.7 Laboratory test 02/19/2014 [facility] HCG, Quant 07450.0 mIU/mL 41 finding Laboratory test 09/21/2013 [facility] Import Maddison Negative [Negati finding species ve] GC / Chlamydia See Note 42 Gardnerella vaginalis Negative [Negative] Trichomonas vaginalis Negative [Negative] Laboratory test 09/21/2013 [facility] Import Culture Urine See Note 43 finding Laboratory test 08/21/2013 [facility] Import Maddison species Negative [ Negative finding ] Gardnerella vaginalis Negative [Negative] Trichomonas vaginalis Negative [Negative] Chlamydia/GC Juli 08/21/2013 [facility] Import Chlamydia Negative Negative Trachomatis, Juli Neisseria Gonorrhoeae, Juli Negative Negative Please note: See Note 44 Dna Probe N. Gono & 08/21/2013 [facility] Import Dna Probe For See Note 45 C. Trach. Chlamydia Trac. GC Probe See Note 46 Laboratory test 07/31/2013 [facility] Import Maddison Positive High [Negative ] finding species Culture Urine See Note 47 Gardnerella vaginalis Negative [Negative] Trichomonas vaginalis Negative [Negative] Laboratory test 07/31/2013 [facility] Import GC / Chlamydia See Note 48 finding Laboratory test 07/31/2013 [facility] Import % Baso. 0.9 % 0.0-2.0 finding % Eos. 0.8 % 0.0-4.0 % Lymph 21 % 20-44 % Mccreary 5.8 % 2.0-10.0 % Mack 71 % High 50-70 Absolute Baso. 0.1 K/ul 0.0-0.3 Absolute Eos. 0.1 K/ul 0.0-0.5 Absolute Lymph. 2.4 K/ul 0.8-4.8 Absolute Mccreary. 0.7 K/ul 0.1-1.0 Absolute Mack. 8.11 K/ul High 2.05-7.63 BUN 10.0 mg/dL 7.0-18.0 BUN/Creat Ratio 12.5 ratio 12.0-20.0 Calcium 10.6 mg/dL High 8.7-10.5 Chloride 101.0 mmol/L 98.0-107.0 Co2 26.0 mmol/L 22.0-30.0 Creatinine-Serum 0.8 mg/dL 0.7-1.2 Esr Sedrate 3.0 sec 0.0-25.0 Glucose 97.0 mg/dL 75.0-110.0 HCT 38.1 % 37.0-51.0 HGB 13.4 Gm/dl 12.0-16.0 MCH 31.4 pg 26.0-32.0 MCHC 35.2 g/dL 31.0-36.0 MCV 89.0 Fl 80.0-97.0 MPV 6.0 fL 6.0-10.0 PLT 427 K/ul 140-440 Potasium 3.6 mmol/L 3.6-5.0 RBC 4.3 M/ul 4.2-6.3 RDW 10.8 % Low 11.5-14.5 Sodium 139.0 mmil/L 137.0-145.0 WBC 11.4 K/ul High 4.1-10.9 eGFR 97.2 Laboratory test finding 2013 [facility] Import FT4 1.30 ng/dL 0.75- 1.54 TSH 1.52 uIU/ml 0.50-6.00 Triiodothyronine,Total 114 ng/dL 71-180 49 Laboratory test 07/19/2013 [facility] Import Amphetamines (Urine) Negative finding Barbiturates (Urine) Negative Benzodiazepines (Urine) Negative Cannabinoids (Urine) Positive High Cocaine Metabolite (Urine) Negative Methadone (Urine) Negative Opiates (Urine) Negative Please Note # 50 Urine Cutoffs * 51 Laboratory test 07/19/2013 [facility] Import Throat Culture See Note 52 finding Complete Laboratory test 05/25/2013 [facility] Import Urine Bilirubin - Negative Negative finding Dipstick Urine Blood Negative Negative Urine Clarity Clear Clear Urine Color Yellow Yellow Urine Glucose - Dipstick Negative mg/dL Negative Urine Ketone Negative mg/dL Negative Urine Leuk Esterase Negative Negative Urine Nitrite - Dipstick Negative Negative Urine PH 7.0 6.5-7.5 Urine Protein - Dipstick Negative mg/dL Negative Urine Specific Savannah 1.010 1.010-1.030 Urine Urobilinogen - Dipstick 0.2 E.U./dL 0.2-1.0 Laboratory test finding 05/25/2013 [facility] Import A/G Ratio 1.4 ratio Low 1.6-2.2 Albumin 4.7 g/dL 3.5-5.0 Alk. Phos. 60.0 U/L 30.0-126.0 Alt 9.0 U/L 9.0-52.0 Anion Gap 11.0 mmol/L 10.0-20.0 Ast 16.0 U/L 14.0-36.0 BUN 8.0 mg/dL 7.0-18.0 BUN/Creat Ratio 8.9 ratio Low 12.0-20.0 Calcium 10.3 mg/dL 8.7-10.5 Chloride 104.0 mmol/L 98.0-107.0 Co2 26.0 mmol/L 22.0-30.0 Creatinine-Serum 0.9 mg/dL 0.7-1.2 Globulin 3.3 g/dL 2.7-4.3 Glucose 90.0 mg/dL 75.0-110.0 Potasium 4.2 mmol/L 3.6-5.0 Sodium 141.0 mmil/L 137.0-145.0 TSH 0.62 uIU/ml 0.50-6.00 Total Bilirubin 0.7 mg/dL 0.2-1.3 Total Protein 8.0 g/dL 6.3-8.2 eGFR 98.5 mi/minper1.73 53 Laboratory test finding 05/25/2013 [facility] Import Anisocytosis 0-1+ Atypical Lymph% 4 % 0-7 Eosinophil% 1 % 0-5 Ferritin 34.9 ng/mL 3-105 HCG Serum, Qualitative Negative Hematocrit 38.2 % 36.0-46.1 Hemoglobin 12.9 gm/dL 11.6-15.8 Lymph% 43 % 17-56 Magnesium 2.0 mg/dL 1.7-2.3 Mean Cell Volume 89.9 fl 80.9-99.0 Mean Corpuscular HGB 30.4 pg 25.9-32.7 Mean Corpuscular HGB Conc 33.8 g/dL 30.8-34.3 Mean Platelet Volume 10.4 fL 8.9-12.4 Monocyte% 6 % 0-10 Neutrophils% 46 % 28-68 Phosphorous 3.8 mg/dL 2.4-4.7 Platelet Count 361 K/uL High 155-360 Platelet Estimate Normal Red Blood Count 4.25 M/uL 3.90-5.40 Red Cell Distri Width %CV 11.9 % 11.7-14.4 Serum Iron 75 g/dL 25-156 Total Cells Counted 100 #CELLS Total Iron Binding Capacity 420 g/dL High 245-419 Transferrin %Saturation 18 % 12-57 White Blood Count 5.5 K/uL 3.1-10.7 Laboratory test 04/03/2013 [facility] [employer] Import Urine HCG Negative Negative 54 finding (Qualitative) Urine Screen 04/03/2013 [facility] [employer] Import Urine Bilirubin - Negative Negative Dipstick Urine Blood Negative Negative Urine Clarity Clear Clear Urine Color Yellow Yellow Urine Glucose - Dipstick Negative mg/dL Negative Urine Ketone Trace mg/dL High Negative Urine Leuk Esterase Negative Negative Urine Nitrite - Dipstick Negative Negative Urine PH 6.0 Low 6.5-7.5 Urine Protein - Dipstick Negative mg/dL Negative Urine Specific [place] 1.020 1.010-1.030 Urine Urobilinogen - Dipstick 0.2 E.U./dL 0.2-1.0 Laboratory test 04/03/2013 [facility] [employer] Import Amphetamines (Urine) Negative finding Barbiturates (Urine) Negative Benzodiazepines (Urine) Negative Cannabinoids (Urine) Positive High Cocaine Metabolite (Urine) Negative Methadone (Urine) Negative Opiates (Urine) Negative Please Note # 55 Urine Cutoffs * 56 Laboratory test finding 02/21/2013 [facility] [employer] Import % Baso. 0.9 % 0.0-2.0 % Eos. 0.4 % 0.0-4.0 % Lymph 23 % 20-44 % Mccreary 6.1 % 2.0-10.0 % Mack 69 % 50-70 A/G Ratio 1.9 ratio 1.6-2.2 Absolute Baso. 0.1 K/ul 0.0-0.3 Absolute Eos. 0.0 K/ul 0.0-0.5 Absolute Lymph. 2.0 K/ul 0.8-4.8 Absolute Mccreary. 0.5 K/ul 0.1-1.0 Absolute Mack. 5.91 K/ul 2.05-7.63 Albumin 4.4 g/dL 3.5-5.0 Alk. Phos. 51.0 U/L 30.0-126.0 Alt 11.0 U/L 9.0-52.0 Anion Gap 12.0 mmol/L 10.0-20.0 Ast 17.0 U/L 14.0-36.0 BUN 11.0 mg/dL 7.0-18.0 BUN/Creat Ratio 11.0 ratio Low 12.0-20.0 Calcium 9.8 mg/dL 8.7-10.5 Chloride 103.0 mmol/L 98.0-107.0 Co2 23.0 mmol/L 22.0-30.0 Creatinine-Serum 1.0 mg/dL 0.7-1.2 FT4 1.00 ng/dL 0.75-1.54 Folate 19.6 ng/mL High 6.0-15.4 Globulin 2.3 g/dL Low 2.7-4.3 Glucose 85.0 mg/dL 75.0-110.0 HCT 37.0 % 37.0-51.0 HGB 12.1 Gm/dl 12.0-16.0 MCH 30.1 pg 26.0-32.0 MCHC 32.6 g/dL 31.0-36.0 MCV 92.3 Fl 80.0-97.0 MPV 7.5 fL 6.0-10.0 PLT 303 K/ul 140-440 Potasium 4.1 mmol/L 3.6-5.0 RBC 4.0 M/ul Low 4.2-6.3 RDW 11.1 % Low 11.5-14.5 Sodium 138.0 mmil/L 137.0-145.0 TSH 0.72 uIU/ml 0.50-6.00 Total Bilirubin 0.7 mg/dL 0.2-1.3 Total Protein 6.7 g/dL 6.3-8.2 Vitamin B12 322.0 pg/mL 200.0-900.0 Vitamin D 36.0 ng/mL 30.0-100.0 WBC 8.5 K/ul 4.1-10.9 eGFR 82.2 mi/minper1.73 57 Laboratory test finding 10/05/2012 [facility] Import Maddison Species See Note 58 Culture Urine See Note 59 Gardnerella Vaginalis See Note 60 Trichomonas Vaginalis See Note 61 Laboratory test 06/20/2012 [facility] Import Maddison See Note Treated 62 finding Species W/Terazol Gardnerella Vaginalis See Note 63 Genital Culture See Note 64 Gram Stain See Note 65 Trichomonas Vaginalis See Note 66 Laboratory test finding 05/24/2012 [facility] Import Maddison Species See Note 67 Culture Urine See Note 68 Gardnerella Vaginalis See Note 69 Genital Culture See Note 70 Gram Stain See Note 71 Trichomonas Vaginalis See Note 72 Dna Probe N. Gono & 05/24/2012 [facility] Import Dna Probe For See Note 73 C. Trach. Chlamydia Trac. GC Probe See Note 74 Laboratory test finding 01/28/2012 [facility] Import Maddison Species See Note 75 GC / Chlamydia See Note 76 Gardnerella Vaginalis See Note 77 Trichomonas Vaginalis See Note 78 Laboratory test finding 01/28/2012 [facility] Import Antibody Detection See Note 79 HSV II,Igg,Type Specific <0.91 index 0.00-0.90 80 HSV Type I Specific Igg < 0.91 index 0.00-0.90 81 Hepatitis A Antibody IgM Nonreactive Nonreactive 82 Hepatitis B Core IgM Nonreactive Nonreactive 83 Hepatitis B Surface Antigen Nonreactive Nonreactive 84 Hepatitis C Antibody Nonreactive Nonreactive Rapid Plasma Reagin Nonreactive Nonreactive 85 Signal/Cutoff ratio < 0.02 <0.80 86 Laboratory test finding 09/04/2011 [facility] Import A/G Ratio 1.2 1.0-2.2 Absolute Basophils 0.094 K/ul 0.0-0.3 Absolute Eosinophils 0.157 K/ul 0.0-0.5 Absolute Lymphocytes 2.15 K/ul 0.8-4.8 Absolute Monocytes 0.413 K/ul 0.1-1.0 Absolute Neutrophils 4.81 K/ul 2.05-7.63 Albumin 3.8 g/dL 3.5-5.0 Alkaline Phosphatase 62 U/L 30-200 Alt 16 U/L 9-52 Ast 16 U/L 14-36 BUN 7 mg/dL 7-18 BUN/CR Ratio 9.2 Ratio Low 12-20 Basophil 1.2 % 0-2 Calcium 9.1 mg/dL 8.7-10.5 Carbon Dioxide 23 mmol/L 22-30 Chloride 103 mmol/L 98-107 Creatinine, Serum 0.7 mg/dL 0.7-1.2 Eosinophil 2.1 % 0-4 Globulin 3.2 g/dL 2.7-4.3 Glucose 87 mg/dL 65-105 Hematocrit 40.1 % 37.0-51.0 Hemoglobin 13.0 GM/dl 12.0-16.0 Lymphocytes 28.2 % 20-44 MCH 29.1 pg 26.0-32.0 MCHC 32.5 g/dL 31.0-36.0 MCV 90 FL 80-97 Monocytes 5.4 % 2-10.0 Neutrophils 63.1 % 50-70 Platelet Count 306 K/ul 140-440 Potassium 4.3 mmol/L 3.6-5.0 RBC 4.48 M/ul 4.2-6.3 RDW 10.6 % Low 11.5-14.5 Sodium 139 mmol/L 137-145 TSH 1.389 uIU/ml 0.50-6.00 Total Bilirubin 0.4 mg/dL 0.2-1.3 Total Protein 7.0 g/dL 6.3-8.2 Vitamin D,25-Hydroxy 31.4 ng/mL 30.0-100.0 87 WBC 7.6 K/ul 4.1-10.9 Vitamin B12 And Folate 09/04/2011 [facility] Import Folic Acid 14.8 ng/mL 6.0-15.4 Vitamin B12 413 pg/mL 311-1180 Laboratory test finding 12/25/2009 [facility] Import Free T3 2.46 pg/mL 1.45-3.48 Free T4 1.01 ng/dL 0.71-1.85 Thyroid Stim Hormone 1.34 uIU/mL 0.49-4.67 Laboratory test 12/13/2009 [facility] Import Gallbladder See Note 88 finding Laboratory test 12/11/2009 [facility] Import HCG Serum, Negative finding Qualitative Laboratory test 10/06/2009 [facility] Import Acetaminophen < 1.0 ug/ml Low 10.0-3 89 finding 0.0 Laboratory test 12/01/2006 [facility] Import Bas% 0.5 % 0.1-1. finding 0 Baso # 0.0 K/uL Low 0.1-0.2 Eo% 4.6 % 0.0-5.0 Eos # 0.4 K/uL 0.0-0.5 Hematocrit 29.8 % Low 36.0-46.0 Hemoglobin 10.1 gm/dL Low 12.0-16.0 Alcon# 0.3 0.0-1.5 Alcon% 3.7 % 0.0-4.0 Lymph # 2.1 K/uL 1.2-4.0 Lymph % 24.3 % 17.0-56.0 Mean Cell Volume 86.5 fL 77.0-95.0 Mean Corpuscular HGB 29.2 pg 25.0-30.0 Mean Corpuscular HGB Conc 33.7 g/dL 31.7-36.0 Mean Platelet Volume 6.7 fl 6.6-10.6 Mccreary # 0.6 K/uL 0.0-0.6 Mccreary % 6.8 % 0.0-10.0 Neut# 5.2 K/uL 1.8-7.0 Neut% 60.0 % 28.0-68.0 Platelet Count 479 K/uL High 150-400 Red Blood Count 3.45 M/uL Low 4.10-5.10 Red Cell Distri Width %CV 12.0 % 11.6-15.8 White Blood Count 8.6 K/uL 4.5-13.5 Laboratory test finding 11/30/2006 [facility] Import Anion Gap 10 mEq/L 8- 16 BUN 4 mg/dL Low 5-23 BUN/Creat 4.0 Calcium 8.4 mg/dL Low 8.5-10.1 Carbon Dioxide 31 mEq/L 21-32 Chloride 99 mEq/L 98-107 Creatinine 1.0 mg/dL 0.5-1.4 Glucose 106 mg/dL 76-115 Potassium 2.8 mEq/L Low 3.5-5.1 Sodium 137 mEq/L 136-145 Laboratory test 11/29/2006 [facility] Import Gentamycin Trough DNR 90 finding Laboratory test 11/29/2006 [facility] Import Gentamycin Peak DNR 91 finding Laboratory test 11/29/2006 [facility] Import Gentamycin Trough 0.5 ug/mL 0.0-2.0 finding Laboratory test 11/29/2006 [facility]D Import Gentamycin Peak 3.8 ug/mL Low 4.0-8.0 finding Laboratory test 11/28/2006 [facility] Import Anion Gap 11 mEq/L 8-16 finding BUN 12 mg/dL 5-23 BUN/Creat 10.9 Bas% 0.5 % 0.1-1.0 Baso # 0.1 K/uL 0.1-0.2 Calcium 8.8 mg/dL 8.5-10.1 Carbon Dioxide 26 mEq/L 21-32 Chloride 103 mEq/L 98-107 Creatinine 1.1 mg/dL 0.5-1.4 Eo% 1.8 % 0.0-5.0 Eos # 0.2 K/uL 0.0-0.5 Glucose 103 mg/dL 76-115 Hematocrit 27.2 % Low 36.0-46.0 Hemoglobin 9.3 gm/dL Low 12.0-16.0 Alcon# 0.3 0.0-1.5 Alcon% 3.3 % 0.0-4.0 Lymph # 1.9 K/uL 1.2-4.0 Lymph % 19.5 % 17.0-56.0 Mean Cell Volume 86.1 fL 77.0-95.0 Mean Corpuscular HGB 29.5 pg 25.0-30.0 Mean Corpuscular HGB Conc 34.2 g/dL 31.7-36.0 Mean Platelet Volume 7.0 fl 6.6-10.6 Mccreary # 0.5 K/uL 0.0-0.6 Mccreary % 5.5 % 0.0-10.0 Neut# 6.8 K/uL 1.8-7.0 Neut% 69.4 % High 28.0-68.0 Platelet Count 292 K/uL 150-400 Potassium 3.0 mEq/L Low 3.5-5.1 Red Blood Count 3.16 M/uL Low 4.10-5.10 Red Cell Distri Width %CV 11.9 % 11.6-15.8 Sodium 137 mEq/L 136-145 White Blood Count 9.8 K/uL 4.5-13.5 Laboratory test 11/27/2006 N[facility]N/[facility] Import Gentamycin Trough 2.0 ug/mL 0.0-2.0 finding Laboratory test 11/27/2006 N[facility]N/[facility] Import Gentamycin Peak 5.6 ug/mL 4.0- 8.0 finding Anaerobic Culture 11/26/2006 N[facility]N/[facility] Import Anaerobic Culture <see 92 W/ GR Stain comment> Gram Stain; Anaerobic Specimen <see comment> 93 Laboratory test 11/26/2006 N[facility]N/[facility] Import Aerobic Culture <see comment> 94 finding Gram Stain <see comment> 95 1 Microbiology results RESULT Normal throat miller.No beta hemolytic streptococci isolated. 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. [address] [place] [address] CYTOLOGY REPORT Source of Specimen(s): Thin Prep Endocervical Pap Smear - One Vial Date of Last Menstrual Period: 09/17/18 Other Clinical Conditions: Last Pap Smear: 2014 normal HPV ASSAY REQUESTED Specimen Adequacy SATISFACTORY FOR EVALUATION PRESENCE OF ENDOCERVICAL/TRANSFORMATION ZONE COMPONENT General Categorization NEGATIVE FOR INTRAEPITHELIAL LESION OR MALIGNANCY Interpretation Benign cellular changes associated with inflammation Fungal organisms morphologically consistent with Maddison sp. Comment HPV testing will be performed and a separate report will be issued. Processed and screened at [facility], Cytology, [address] [place] [address], [id number]. Reported at [facility] at [facility], [address] [place] [address]. Reported: 11/11/2018 19:12 Electronically Signed Out By Sofia Luna M.D. [facility] Regulatory Process Manager: Elizabeth Cantu CT(ASCP) ICD9 Code: Z01.419 CPT code: A: [id number], [id number] Unless otherwise specified, testing performed by [facility] [place] [address] 4 CP L SIDE RADIATING DOWN ARM 5 0.0 - 0.045 ng/mL: Normal 0.046 - 0.5 ng/mL: Suggestive 0.6 - 1.5 ng/mL: Consistent 6 Method: [employer] QuickVue One-Step Immunoassay 7 Note: Persistent reduction for 3 months or more in an eGFR <60 mL/min/1.73 m2 defines CKD. Patients with eGFR values >/=60 mL/min/1.73 m2 may also have CKD if evidence of persistent proteinuria is present. The original MDRD equation for estimated GFR is not valid for patients less than 18 years of age. Additional information may be found at www.kdoqi.org. 8 Values below the stated reference ranges of AST and ALT can be seen in normal populations. Clinical correlation is suggested. 9 SPECIMEN DESCRIPTION MIDSTREAM URINE,CLEAN CATCH CULTURE RESULTS NO GROWTH REPORT STATUS FINAL 06/05/2018 10 SPECIMEN DESCRIPTION GENITAL SPECIAL REQUESTS NONE CULTURE RESULTS NORMAL VAGINAL MILLER NO NEISSERIA GONORRHOEAE ISOLATED REPORT STATUS FINAL 06/06/2018 11 SPECIMEN DESCRIPTION VAGINAL SPECIMEN RESULT NEGATIVE FOR TRICHOMONAS VAGINALIS BY DNA PROBE NEGATIVE FOR GARDNERELLA VAGINALIS BY DNA PROBE NEGATIVE FOR MADDISON SPECIES BY DNA PROBE REPORT STATUS FINAL 06/04/2018 12 Suggest repeat testing in 2-4 weeks. Unless otherwise specified, testing performed by [facility] [address] [place] [address] 13 Suggest repeat testing in 2-4 weeks. Unless otherwise specified, testing performed by [facility] [place] [address] 14 No IgG antibodies specific to Mumps detected. Patient presumed NOT to have had a previous exposure to Mumps through infection or vaccination. Unless otherwise specified, testing performed by [employer] [facility] [place] [address] 15 IgG antibody to VZV detected. This may indicate that the patient was exposed to VZV through infection or vaccination. Unless otherwise specified, testing performed by [facility] [place] [address] 16 S/CO Ratio >/=1.0 is REACTIVE. S/CO <5.0 is Low Reactive. S/CO >/= 5.0 is High Reactive. Effective Mar 26, 2017 all anti-HCV reactive samples are sent for quantitative PCR confirmation. 17 Per NCEP ATP III Guidelines: Results lower than 40 mg/dL are suggestive of increased risk for coronary artery disease. Results > or=to 60 mg/dL are considered a negative risk factor. 18 Per NCEP ATP III Guidelines: Normal Population <130 Patients with medical conditions: CHD/DM Optimal: <100 Borderline high: 130-159 High: 160-189 Very high: >189 19 Updated reference range on new analyzer 20 Updated reference range on new analyzer 21 Concerning GFR Guidelines: Normal function or mild renal disease, if clinically at risk: >/=60 mL/min Moderately decreased: 30-59 Severely decreased: 15-29 Renal failure: <15 Glomerular Filtration Rate (GFR) is estimated based on the MDRD equation, which assumes a steady state for creatinine as recommended by the National Kidney Disease Education Program in conjunction with the National Institutes of Health and the National Kidney Foundation. Clinical conditions in which it may be necessary to measure GFR by using clearance methods include extremes of age and body size, severe malnutrition or obesity, diseases of skeletal muscle, paraplegia or quadriplegia, vegetarian diet, rapidly changing kidney function, and calculation of the dose of potentially toxic drugs that are excreted by the kidneys. 22 Concerning GFR Guidelines for Americans: Normal function or mild renal disease, if clinically at risk: >/=60 mL/min Moderately decreased: 30-59 Severely decreased: 15-29 Renal failure: <15 23 Updated reference range on new analyzer 24 Microbiology results SOURCE URINE FINAL RESULT No growth 25 Microbiology results SOURCE URINE COLONY COUNT >100,000 FINAL RESULT Mixed urogenital miller consistent with contamination. Request fresh specimen if indicated. 26 Microbiology results SOURCE URINE FINAL RESULT No growth 27 Approximate Gestational Age and Total BHCG Range: 0.2 - 1 Week........................5-50 mIU/mL 1 - 2 Weeks.....................50-500 mIU/mL 2 - 3 Weeks..................100-5,000 mIU/mL 3 - 4 Weeks.................500-10,000 mIU/mL 4 - 5 Weeks...............1,000-50,000 mIU/mL 5 - 6 Weeks.............10,000-100,000 mIU/mL 6 - 8 Weeks.............15,000-200,000 mIU/mL 2 - 3 Months............10,000-100,000 mIU/mL 04/05/15 LAB.[facility] Deleted by Reflex Group [facility] 29 <=0.49 ug/mL - Low likelihood of DIC, DVT or Pulmonary Embolism >0.49 ug/mL - Additional testing should be done to rule out DIC, DVT, or Pulmonary embolism as clinically indicated. ([facility] has established a 97.89% negative predictive value for thrombotic disease when a cutoff value of 0.5 ug/mL is used.) 30 Microbiology results SOURCE URINE FINAL RESULT Mixed organisms representing urethral miller. No further workup. 31 INTERPRETATION: LESS THAN 6 NEGATIVE 6 - 10 BORDERLINE (SUGGEST REPEAT IN 48 HOURS) APPROX HCG RANGE WEEKS POST LMP 11 - 130 3 - 4 WEEKS 75 - 2600 4 - 5 WEEKS 850 - 40544 5 - 6 WEEKS 4000 - [id number] 6 - 7 WEEKS 60597 - [id number] 7 - 12 WEEKS 31270 - 218907 12 - 16 WEEKS 1400 - 49504 16 - 29 WEEKS 940 - 08779 29 - 41 WEEKS Unless otherwise specified, testing performed by [facility] [address] [place] [id number] 32 Blood Type O POS 33 Approximate Gestational Age and Total BHCG Range: 0.2 - 1 Week........................5-50 mIU/mL 1 - 2 Weeks.....................50- 500 mIU/mL 2 - 3 Weeks..................100-5,000 mIU/mL 3 - 4 Weeks.................500-10,000 mIU/mL 4 - 5 Weeks...............1,000-50, 000 mIU/mL 5 - 6 Weeks.............10,000-100,000 mIU/mL 6 - 8 Weeks.............15,000-200,000 mIU/mL 2 - 3 Months............10,000-100, 000 mIU/mL 34 03/11/14 LAB.DWM Deleted by [facility] 35 No reportable results 36 HBsAg not detected; does not exclude the possibility of exposure to or early acute infections with HBV. 37 Environmental Exposure: WHO Recommendation <20 Occupational Exposure: OSHA Lead Std 40 MARIELY 30 Detection Limit=1 38 PENDING; TEST PERFORMED ON MONDAYS AND THURSDAYS 39 Values >=10.0 IU/mL are positive for IgG antibodies to rubella virus and are considered IMMUNE. 40 Negative <135 Equivocal 135 - 165 Positive >165 A positive result generally indicates exposure to the pathogen or administration of specific immunoglobulins, but it is not indication of active infection or stage of disease. Performed at: RN - [facility] [address] [id number] Filling Technician: Madelin Carrasco MD, Phone: [phone] 41 Approximate Gestational Age and Total BHCG Range: 0.2 - 1 Week........................5-50 mIU/mL 1 - 2 Weeks.....................50- 500 mIU/mL 2 - 3 Weeks..................100-5,000 mIU/mL 3 - 4 Weeks.................500-10,000 mIU/mL 4 - 5 Weeks...............1,000-50, 000 mIU/mL 5 - 6 Weeks.............10,000-100,000 mIU/mL 6 - 8 Weeks.............15,000-200,000 mIU/mL 2 - 3 Months............10,000-100, 000 mIU/mL 42 [facility] [address] [facility], [address] [place] [address] GC / CHLAMYDIA REPORT Name: En Rouse : 1995 (Age: 18) Sex: F Location: [facility] Med. Rec. # [id number] Date Collected: 09/21/2013 Billing #: [id number] Date Received: 09/21/2013 Requisition # [id number] Physician(s): ELLIE DAVIDSON Source of Specimen: Urine, APTIMA Results: Neisseria gonorrhoeae NEGATIVE Chlamydia trachomatis NEGATIVE Comment: This analysis was performed using second generation nucleic acid amplification testing (NAAT). Reported: 09/22/2013 Electronic Signature kjt [place] DR[facility]ER ([facility]) [facility] ICD-9 Codes: 616.10 43 COLONY COUNT ! 10,000 - 20,000 CFU/ml Organism 1 ! MIXED URETHRAL MILLER 44 Acceptable specimens for this test are male urethral swab, endocervical swab and liquid based pap specimens, vaginal swabs in APTIMA transports and first void urine. See online Directory of Services for test number for rectal and pharyngeal specimens. Performed at: RN - [facility] [address] [id number] Filling Technician: Madelin Carrasco MD, Phone: [phone] 45 WRONG ORDER 46 WRONG ORDER 47 NO GROWTH: FINAL REPORT 48 [facility] [address] [facility], [address] [place] [address] GC / CHLAMYDIA REPORT Name: En Rouse : 1995 (Age: 18) Sex: F Location: [facility] Med. Rec. # [id number] Date Collected: 07/31/2013 Billing #: [id number] Date Received: 07/31/2013 Requisition # [id number] Physician(s): ELLIE DAVIDSON Source of Specimen: Urine, APTIMA Results: Neisseria gonorrhoeae NEGATIVE Chlamydia trachomatis POSITIVE Result faxed to by Renata 08/01 1200 Comment: This analysis was performed using second generation nucleic acid amplification testing (NAAT). Reported: 08/01/2013 Electronic Signature * ct Renata WILD [facility] ICD-9 Codes: 616.10 49 Performed at: RN - [facility] [address] [id number] Filling Technician: Madelin Carrasco MD, Phone: [phone] 50 #THIS URINE SPECIMEN SCREENED POSITIVE FOR ONE OF MORE DRUG CLASSES. POSITIVE FINDINGS ARE UNCONFIRMED. CONFIRMATORY TESTING IS SUGGESTED IF FINDINGS ARE UNEXPECTED. PLEASE CONTACT THE LABORATORY IF CONFIRMATORY TESTING IS DESIRED. 51 *THE SUBMITTED URINE SPECIMEN WAS SCREENED AT THE LISTED CUTOFFS DRUG CLASS INITIAL TEST LEVEL Amphetamines 1000 ng/mL Barbiturates 200 ng/mL Benzodiazepines 200 ng/mL Cannabinoids 50 ng/mL Cocaine Metabolite 300 ng/mL Methadone 300 ng /mL Opiates 300 ng/mL 52 NORMAL THROAT MILLER 53 For -Lithuanian patients multiply result by 1.180 54 FIRST MORNING SPECIMENS GENERALLY CONTAIN THE HIGHEST CONCENTRATION OF HCG AND ARE RECOMMENDED FOR EARLY DETECTION OF . 55 #THIS URINE SPECIMEN SCREENED POSITIVE FOR ONE OF MORE DRUG CLASSES. POSITIVE FINDINGS ARE UNCONFIRMED. CONFIRMATORY TESTING IS SUGGESTED IF FINDINGS ARE UNEXPECTED. PLEASE CONTACT THE LABORATORY IF CONFIRMATORY TESTING IS DESIRED. 56 *THE SUBMITTED URINE SPECIMEN WAS SCREENED AT THE LISTED CUTOFFS DRUG CLASS INITIAL TEST LEVEL Amphetamines 1000 ng/mL Barbiturates 200 ng/mL Benzodiazepines 200 ng/mL Cannabinoids 50 ng/mL Cocaine Metabolite 300 ng/mL Methadone 300 ng /mL Opiates 300 ng/mL 57 For -Lithuanian patients multiply result by 1.180 58 NEGATIVE FOR MADDISON SPECIES Testing Performed by: [place] [address] 59 COLONY COUNT ! 5,000 - 10,000 CFU/ml Organism 1 ! URETHRAL MILLER 60 POSITIVE FOR GARDNERELLA VAGINALIS 61 NEGATIVE FOR TRICHOMONAS VAGINALIS 62 POSITIVE FOR MADDISON SPECIES Testing Performed by: [place] [address] 63 NEGATIVE FOR GARDNERELLA VAGINALIS 64 Organism 1 ! YEAST LIKE ORGANISM QUANTITY ! MANY 65 GRAM STAIN ! GRAM STAIN INDICATES NORMAL GENITAL MILLER ! MODERATE GR POS. BACILLI SUGGESTIVE OF LACTOBACILLUS ! SP. ! VERY FEW GRAM VARIABLE COCCOBACILLI ! MODERATE YEAST LIKE ORGANISMS 66 NEGATIVE FOR TRICHOMONAS VAGINALIS 67 NEGATIVE FOR MADDISON SPECIES Testing Performed by: [place] [address] 68 COLONY COUNT ! 10,000 - 20,000 CFU/ml Organism 1 ! URETHRAL MILLER 69 POSITIVE FOR GARDNERELLA VAGINALIS 70 Organism 1 ! GARDNERELLA VAGINALIS QUANTITY ! MANY 71 GRAM STAIN ! GRAM STAIN SUSPICIOUS FOR BACTERIAL VAGINOSIS ! MANY GRAM VARIABLE COCCOBACILLI 72 NEGATIVE FOR TRICHOMONAS VAGINALIS 73 NEGATIVE FOR CHLAMYDIA TRACHOMATIS BY DNA HYBRIDIZATION ASSAY. THIS TEST IS APPROVED FOR OCULAR AND UROGENITAL SITES ONLY. 74 NEGATIVE FOR NEISSERIA GONORRHOEAE BY DNA HYBRIDIZATION ASSAY. THIS METHOD IS APPROVED FOR UROGENITAL SITES ONLY. 75 NEGATIVE FOR MADDISON SPECIES Testing Performed by: [place] [address] 76 [facility] [address] [place] [address], [address] [place] [address] GC / CHLAMYDIA REPORT Name: En Rouse : 1995 (Age: 16) Sex: F Location: [facility] Soc. Sec. #: [id number] Date Collected: 01/28/2012 Billing #: [id number] Date Received: 01/28/2012 Med. Rec. # [id number] Requisition # [id number] Physician(s): ELLIE DAVIDSON Source of Specimen: Urine, APTIMA Results: Neisseria gonorrhoeae NEGATIVE Chlamydia trachomatis NEGATIVE Comment: This analysis was performed using second generation nucleic acid amplification testing (NAAT). Reported: 01/29/2012 Electronic Signature md Renata WILD [facility] ICD-9 Codes: A: V72.31 77 POSITIVE FOR GARDNERELLA VAGINALIS 78 NEGATIVE FOR TRICHOMONAS VAGINALIS 79 No reportable results 80 Negative <0.91 Equivocal 0.91 - 1.09 Positive >1.09 Note: Negative indicates no antibodies detected to HSV-2. Equivocal may suggest early infection. If clinically appropriate, retest at later date. Positive indicates antibodies detected to HSV-2; coinfection with HSV-1 cannot be excluded without type specific testing. 81 Negative <0.91 Equivocal 0.91 - 1.09 Positive >1.09 Note: Negative indicates no antibodies detected to HSV-1. Equivocal may suggest early infection. If clinically appropriate, retest at later date. Positive indicates antibodies detected to HSV-1; coinfection with HSV-2 cannot be excluded without type specific testing. Performed at: [address] [id number] Filling Technician: Jerome Sandoval MD, Phone: [phone] 82 IgM antibodies to HAV not detected; does not exclude early acute or recovered HAV infection. 83 IgM anti-HBc not detected. Does not exclude the possibility of exposure to or infection with HBV. 84 HBsAg not detected; does not exclude the possibility of exposure to or early acute infections with HBV. 85 PENDING; TEST PERFORMED ON MONDAYS AND THURSDAYS 86 Antibodies to HCV not detected; does not exclude early acute HCV infection. 87 Vitamin D deficiency has been defined by the [place] of [employer] and an Endocrine Society practice guideline as a level of serum 25-OH vitamin D less than 20 ng/mL (1,2). The Endocrine Society went on to further define vitamin D insufficiency as a level between 21 and 29 ng/mL (2). 1. IOM ([place] of [employer]). 2011. Dietary reference intakes for calcium and D. [place]: The National Academies Press. 2. Deborah LOMBARDO, Yaw RIGGINS, Delores ISSA, et al. Evaluation, treatment, and prevention of vitamin D deficiency: an Endocrine Society clinical practice guideline. JCEM. 2010; 96(7):1911-30. Performed at: [address] [id number] Filling Technician: Jerome Sandoval MD, Phone: [phone] 88 OPERATION/PROCEDURE Cholecystectomy DIAGNOSIS: "GALLBLADDER": CHRONIC CHOLECYSTITIS, AND CHOLELITHIASIS. NO EVIDENCE OF DYSPLASIA NOR NEOPLASIA APPRECIATED. AYE/boyd GROSS The specimen is received in a single container additionally labeled "GALLBLADDER". This contains a grossly recognizable unopened gallbladder. This has a green shiny smooth surface and overall measures 7.4 x 3.1 x 0.7 cm. in overall dimensions. There is a visible wall defect. The wall has a uniform thickness of 0.4 cm. The mucosal surface is green, velvety smooth and unremarkable. No trabeculations are noted. No seo reticular discoloration of cholesterolosis is noted. One stone is noted with a diameter up to 2.2 cm. It does not obstruct the neck. General Surgeon sections are submitted within a single cassette. WS/clf MICROSCOPIC Sections show gallbladder mucosa lined by columnar epithelium with focal synechia, and Rokitansky-Aschoff sinus formation. The submucosa has a mild infiltrate of lymphocytes and plasma cells. The muscular wall is slightly fibrotic and hypertrophied. PRE OPERATIVE DIAGNOSIS Cholelithiasis REVIEW CODE CODE: I ----- Signed JASON THOMAS MD 12/17/09 ----- 89 POTENTIAL TOXICITY VARIES WITH TIME FROM INGESTION. PLEASE CONSULT APPROPRIATE NOMOGRAM. 90 WRONG TIME 91 WRONG TIME 92 Organism 1 ! BACT. FRAGILIS {PRESUMPTIVE} RECOMMENDED THERAPY: ! METRONDIAZOLE OR CLINDAMYCIN. 93 GRAM STAIN ! MANY GRAM POSITIVE COCCI MANY GRAM NEGATIVE BACILLI VERY FEW GRAM POSITIVE BACILLI 94 Organism 1 ! ESCHERICHIA COLI QUANTITY ! MODERATE Organism 2 ! STREPTOCOCCUS VIRIDANS QUANTITY ! MANY ESCHERICHIA COLI Target Route Dose M.I.C. RX AB COST ------ ----- -------- ------ -- ------ NITROFURANTOIN BLOOD PO 50 mg <=32 S 0.42 TRIMETHOPRIM/SULFAMETHOXAZOLE BLOOD PO DS <=10 S 0.39 AMPICILLIN BLOOD PO 250 mg 2 S 0.09 IV 1.0 gm S 1.27 IV 2.0 gm S 1.42 CEFAZOLIN BLOOD IV 500 mg <=8 S 0.90 IV 1.0 gm S 3.28 AMPICILLIN/SULBACTAM BLOOD IV 1.5 gm <=4 S 6.76 IV 3.0 gm S 12.42 CIPROFLOXACIN <=0.5 S PIPERACILLIN/TAZOBACTAM BLOOD IV 3.375 gm <=8 S 14.10 CEFTAZIDIME BLOOD IV 1.0 gm <=8 S 7.18 IM 1.0 gm S 6.46 CEFTRIAXONE BLOOD IV 1.0 gm <=8 S 22.32 IV 2.0 gm S 9.00 LEVOFLOXACIN BLOOD PO 250 mg <=1 S 6.97 PO 500 mg S 8.37 IV 500 mg S 16.21 IMIPENEM BLOOD IV 500 mg <=4 S 24.15 GENTAMICIN BLOOD IV 80 mg 1 S 2.63 TOBRAMYCIN BLOOD IV 80 mg <=0.5 S 1.56 CEFUROXIME <= 4 S 95 GRAM STAIN ! MANY GRAM POSITIVE COCCI MANY GRAM NEGATIVE BACILLI VERY FEW GRAM POSITIVE BACILLI Procedures Date Code Description Status 12/08/2018 86815 Measure Blood Oxygen Level Single Determination Completed 11/08/2018 75133 Brief Emotional/Behav Assessment W/ Scoring Doc Per Completed Standard Inst 06/09/2018 18864 Measure Blood Oxygen Level Single Determination Completed 04/01/2018 72128 Measure Blood Oxygen Level Single Determination Completed 10/06/2017 54022 Measure Blood Oxygen Level Single Determination Completed 12/07/2016 65129 Electrocardiogram Complete Completed 03/19/2016 53475 ECHO Transthoracis 2D W Spectral Doppler Completed 03/09/2016 16263 Spirometry /PFT W/O Bronchodialator Completed 03/09/2016 80366 PFT W/O Bronchodilator Completed 03/09/2016 00505 Measure Blood Oxygen Level Single Determination Completed 02/05/2016 49642 Measure Blood Oxygen Level Single Determination Completed 02/05/2016 57414 Electrocardiogram Complete Completed 01/20/2016 34766 Measure Blood Oxygen Level Single Determination Completed 12/10/2015 99136 Measure Blood Oxygen Level Single Determination Completed 11/15/2015 34993 Measure Blood Oxygen Level Single Determination Completed 11/08/2015 71613 Measure Blood Oxygen Level Single Determination Completed 10/22/2015 05106 Measure Blood Oxygen Level Single Determination Completed 10/15/2015 97799 Electrocardiogram Complete Completed 06/11/2015 07989 Measure Blood Oxygen Level Single Determination Completed Encounters Type Date Location Provider Dx Diagnosis Office Visit 12/08/2018 2:30p [facility] Nica Robison MD R50.9 Fever, unspecified J02.9 Acute pharyngitis, unspecified Office Visit 11/08/2018 2:30p [facility] Jam Lacey, Z01.419 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) w/o abn findings J30.9 Allergic rhinitis, unspecified R00.2 Palpitations R51 Headache E66.9 Obesity, unspecified N91.2 Amenorrhea, unspecified Z13.31 Encounter for screening for depression Z68.33 Body mass index (BMI) 33.0-33.9, adult Office Visit 06/09/2018 10:30a [facility] Oxana Will PA J20.9 Acute bronchitis, unspecified Z68.31 Body mass index (BMI) 31.0-31.9, adult Office Visit 06/04/2018 8:45a [facility] Aftab Laceyia, N76.0 Acute vaginitis TIME CYCLE OPERATOR Office Visit 05/31/2018 11:00a [facility] Jam Lacey, L03.113 Cellulitis of RIGHT TIME CYCLE OPERATOR upper limb Office Visit 04/25/2018 4:00p [facility] Jam Lacey, N76.0 Acute vaginitis TIME CYCLE OPERATOR Z68.33 Body mass index (BMI) 33.0-33.9, adult Office Visit 04/01/2018 2:45p [facility] Jam Lacey, J06.9 Acute upper TIME CYCLE OPERATOR respiratory infection, unspecified Office Visit 03/21/2018 9:15a [facility] Schedule, Nurses Z11.1 Encounter for screening for respiratory tuberculosis Office Visit 03/07/2018 9:15a [facility] Schedule, Nurses Z11.1 Encounter for screening for respiratory tuberculosis Office Visit 03/04/2018 3:00p [facility] Jam Lacey, Z00.00 Encntr for general TIME CYCLE OPERATOR adult medical exam w/o abnormal findings J30.9 Allergic rhinitis, unspecified Z11.59 Encounter for screening for other viral diseases Z13.220 Encounter for screening for lipoid disorders Z11.1 Encounter for screening for respiratory tuberculosis Z68.35 Body mass index (BMI) 35.0-35.9, adult Office Visit 10/06/2017 4:15p [facility] Aftab Laceyia, J20.9 Acute bronchitis, TIME CYCLE OPERATOR unspecified Office Visit 09/20/2017 3:00p [facility] Jam Lacey, F41.1 Generalized anxiety TIME CYCLE OPERATOR disorder J30.9 Allergic rhinitis, unspecified Z23 Encounter for immunization Z68.37 Body mass index (BMI) 37.0-37.9, adult Office Visit 03/18/2017 2:45p [facility] Shawn Bravo DO F41.1 Generalized anxiety disorder Office Visit 12/07/2016 4:15p [facility] Shawn Barvo DO R00.0 Tachycardia, unspecified Z68.42 Body mass index (BMI) 45.0-49.9, adult Office Visit 04/23/2016 1:00p [facility] Ellie Boles PA R35.0 Frequency of micturition H01.003 Unspecified blepharitis RIGHT eye, unspecified eyelid Office Visit 04/03/2016 1:00p [facility] Ellie Boles PA R10.30 Lower abdominal pain, unspecified Z11.3 Encntr screen for infections w sexl mode of transmiss Office Visit 03/09/2016 11:15a [facility] Shawn Bravo DO R06.02 Shortness of breath R00.2 Palpitations Office Visit 02/05/2016 4:15p [facility] Jam Lacey, TIME CYCLE OPERATOR R00.2 Palpitations F41.1 Generalized anxiety disorder R06.02 Shortness of breath Z68.39 Body mass index (BMI) 39.0-39.9, adult Office Visit 01/20/2016 1:00p [facility] Ellie Boles PA R00.2 Palpitations Office Visit 12/31/2015 11:30a [facility] Ellie Boles PA F41.1 Generalized anxiety disorder E66.3 Overweight Office Visit 12/19/2015 1:00p [facility] Ellie Boles, N89.8 Other specified PA noninflammatory disorders of vagina Office Visit 12/10/2015 1:45p [facility] Ellie Boles, R07.9 Chest pain, unspecified PA Office Visit 11/29/2015 10:15a [facility] Ellie Boles, F41.1 Generalized anxiety PA disorder R06.02 Shortness of breath Office Visit 11/15/2015 10:00a [facility] Ellie Boles, PA F41.1 Generalized anxiety disorder R06.02 Shortness of breath Office Visit 11/08/2015 11:00a [facility] Ellie Boles, PA R07.9 Chest pain , unspecified R06.02 Shortness of breath F41.1 Generalized anxiety disorder M79.605 Pain in LEFT leg Office Visit 10/22/2015 10:00a [facility] Ellie Boles, H68.003 Unspecified Eustachian PA salpingitis, bilateral Office Visit 10/15/2015 1:45p [facility] Ellie Boles, R07.9 Chest pain, PA unspecified Office Visit 06/11/2015 11:15a [facility] Ellie Boles, R07.9 Chest pain, PA unspecified Office Visit 12/10/2014 1:45p [facility] Ellie Boles, 626.0 Menstruation Absence PA 789.09 Pain Abdominal Other Spec Site Office Visit 11/27/2014 1:00p [facility] Ellie Boles, PA 789.09 Pain Abdominal Other Spec Site V74.5 Screening Examination Venereal Disease Plan of Treatment Future Appointment(s):05/15/2019 3:00 pm - Jam Lacey NP at [facility]03/06 3:00 pm - Jam Lacey NP at [facility]01/05/2019 - Oxana Will PAJ02.9 PharyngitisComments:Rapid strep negWill check throat culture and mono titersPush fluidsTylenol/motrin as needed for painSalt water gargles Consider ENT referralCall with any questions or concernsFollow up:PrnZ68.33 Body mass index (BMI) 33.0-33.9, adult
--- OUTSIDE RECORDS SUMMARY | 2019-01-07 08:29 | XMS REPORT | Continuity of Care Document ---
:1995 External Reference #:[id number] Author Name Nica Robison MD Address [address] [place] [address] Care Team Providers Name Role Phone Jam Lacey NP Care Team Information Apn Unavailable Payers Date Identification Numbers Payment Provider Subscriber Policy Number: [id number] [employer] Cayetano Rouse PayID: [id number] [address] [place] [address] Effective: 2018 Policy Number: [id number] [employer] Yas Rouse Group Number: CLASSIC BLUE YN [address] [address] Group Name: [place] [id number] PayID: [id number] Policy Number: [id number] Medicaid En Rouse PayID: [id number] [address] [place] [address] Advance Directives Description No Information Available Problems Active Problems Provider Date Oral contraceptive prescribed Ellie Boles PA Onset: 10/05/2012 Anxiety state Ellie Boles PA Onset: 09/04/2011 Allergic rhinitis Jam Lacey NP Onset: 09/20/2017 Palpitations Jam Lacey NP Onset: 11/08/2018 Resolved Problems Flatulence, eructation and [...] 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 Occasionally consumes alcohol Tobacco Use Start: Unknown Patient has never smoked Recreational Drug Use Formerly used Marijuana sporadically Smoking Status Reviewed: 11/08/18 Patient has never smoked Allergies, Adverse Reactions, Alerts Description No Known Drug Allergies Medications Active Medications SIG Qnty Indications Ordering Provider Date Amoxicillin 1 by mouth twice 20tabs Nica Robison, 12/08/2018 875mg a day for 10 MD Tablets days Proair HFA 2 puffs every 4 1units J20.9 Tioiovanrick, 10/06/2017 108(90Base) hours as needed Jam, CORN BREEDER mcg/Act Aerosol for cough or sob Sertraline HCL take 1 and 1/2 135tabs Digiovanna, 04/28/2017 100mg tablets daily Jam, CORN BREEDER Tablets Propranolol HCL ER 1 by mouth every jacquelyn darnell md 80mg day Caps ER 24HR Buspirone HCL take 1 tablet by 90tabs Digiosangita, 10mg mouth three Jam, CORN BREEDER Tablets times a day Benadryl Allergy 1 tablet by Unknown 25mg mouth every 12 Tablets hours as needed Tylenol Extra one by mouth q6 Unknown Strength hrs. as needed 500mg Tablets mdd - 3 grams per day Loratadine 1 by mouth every J30.9 Unknown 10mg Tablets day One Daily For Women 1 by mouth every Unknown day Tablets History Medications Fluconazole 1 tablet by mouth 1tabs Adolfo Almanza, 11/10/2018 - 150mg x 1 DO 11/11/2018 Tablets Azithromycin 2 tablets by 6tabs J20.9 Adolfo Almanza, 06/09/2018 - 250mg mouth on day 1 DO 06/14/2018 Tablets then 1 tablet on days 2-5 Miconazole 7 Insert 1 7units N76.0 Tioiosangita, 04/25/2018 - 100mg vaginally every Jam, CORN BREEDER 05/02/2018 Suppository hs for 7 nights Benzonatate 2 po every 8 60caps J06.9 Digiovanna, 04/01/2018 - 100mg hours as needed Jam, MELISSA 04/11/2018 Capsules for cough Benzonatate 1 by mouth every 30caps J20.9 Digiovanna, 10/06/2017 - 200mg 8 hours as needed Jam, CORN BREEDER 03/04/2018 Capsules for cough, may cause drowsiness [...] Fluticasone 1 spray each 16units H68.003 Adolfo Almanza 10/22/2015 - Propionate nostril twice a DO [...] 150mg Tablets day Children[facility] 03/18/2017 [facility] Allergy 24HR 1 by mouth every J30.9 Unknown - day 11/30/2017 5mg Tablets Sulfamethoxazole-Tri 1 by mouth twice Unknown - pmethoprim a day x 7 days 05/31/2018 800-160mg Tablets Medications Administered in Office Medication SIG Qnty Indications Ordering Provider Date PPD Schedule, Nurses 03/18/2018 Injection PPD Jam Lacey NP 03/04/2018 Injection PPD Schedule, Nurses 02/07/2018 Injection Immunizations CPT Code Status Date Vaccine Reaction Lot # [id number] Given 12/06/2018 Menactra/Menveo Meningococcal [id number] Vaccine 14466 Given 12/06/2018 MMR Virus Immunization [id number] 62901 Given 09/20/2017 Tdap (Adacel) Ages 7 And Above [id number] Only 54170 Given 06/16/2017 Afluria Or Fluvirin Flu Vac Intramuscular 57317 Given 11/13/2008 HPV Vaccine (Gardasil) 3 Dose Schedule 65851 Given 07/16/2008 HPV Vaccine (Gardasil) 3 Dose Schedule 97672 Given 05/14/2008 HPV Vaccine (Gardasil) 3 Dose PT [facility] Schedule 63749 Given 04/26/2007 Tdap (Adacel) Ages 7 And Above Only 19809 Given 07/02/1999 Varicella (Chicken Pox) [facility] Immunization 96692 Given 12/31/1998 MMR Virus Immunization [facility] 49969 Given 03/02/1995 Oral Poliovirus Immunization [facility] 10295 Given 03/02/1995 DTP Immunization [facility] 08064 Given 11/30/1994 MMR Virus Immunization [facility] 26918 Given 01/30/1994 Hepatitis B Vac Ped/Adolescent 3 [facility] Dose Schedule 37125 Given 01/30/1994 Oral Poliovirus Immunization [facility] 12876 Given 01/30/1994 DTP Immunization [facility] 53294 Given 1993 Hepatitis B Vac Ped/Adolescent 3 [facility] Dose Schedule 39990 Given 1993 Oral Poliovirus Immunization [facility] 02746 Given 1993 DTP Immunization [facility] 52576 Given 1993 Hepatitis B Vac Ped/Adolescent 3 [facility] Dose Schedule 41088 Given 1993 Oral Poliovirus Immunization [facility] 78520 Given 1993 DTP Immunization [facility] 83172 Refused 06/09/2018 Influenza Vac, Quadrivalent, Split, 0.5mL Dosage, Im Use Vital Signs Date Vital Result Comment 12/08/2018 2:22pm Body Temperature 102.0 F tympanic Weight 216.31 lb Heart Rate 100 /min BP Systolic 118 mmHg BP Diastolic 84 mmHg Respiratory Rate 16 /min Height 67.5 inches 5'7.50" 03/04/18 SA,[employer] O2 % BldC Oximetry 97 % Room Air BMI (Body Mass Index) 33.4 kg/m2 11/08/2018 2:23pm Weight 220.00 lb Heart Rate 84 /min BP Systolic 124 mmHg BP Diastolic 76 mmHg Respiratory Rate 16 /min Height 67.5 inches 5'7.50" 03/04/18 SA,[employer] BMI (Body Mass Index) 33.9 kg/m2 Last Menstrual Period [id number] urine HCG neg 06/09/2018 10:31am Body Temperature 98.8 F Apap 2.5 Hours Ago Weight 201.00 lb Heart Rate 100 /min BP Systolic 130 mmHg BP Diastolic 80 mmHg Respiratory Rate 18 /min Height 67.5 inches 5'7.50" 03/04/18 ,[employer] O2 % BldC Oximetry 98 % BMI (Body Mass Index) 31.0 kg/m2 06/04/2018 8:49am Weight 202.50 lb Heart Rate 84 /min BP Systolic 122 mmHg BP Diastolic 76 mmHg Respiratory Rate 16 /min Height 67.5 inches 5'7.50" 03/04/18 ,[facility] BMI (Body Mass Index) 31.2 kg/m2 05/31/2018 11:06am Weight 203.00 lb Heart Rate 84 /min BP Systolic 118 mmHg BP Diastolic 80 mmHg Respiratory Rate 16 /min Height 67.5 inches 5'7.50" 03/04/18 ,[facility] BMI (Body Mass Index) 31.3 kg/m2 04/25/2018 4:01pm Weight 215.25 lb Heart Rate 80 /min BP Systolic 118 mmHg BP Diastolic 80 mmHg Respiratory Rate 16 /min Height 67.5 inches 5'7.50" 03/04/18 ,[facility] BMI (Body Mass Index) 33.2 kg/m2 04/01/2018 2:38pm Body Temperature 97.9 F Weight 224.00 lb Heart Rate 82 /min BP Systolic 120 mmHg BP Diastolic 80 mmHg Respiratory Rate 18 /min Height 67.5 inches 5'7.50" 03/04/18 ,[facility] O2 % BldC Oximetry 94 % BMI (Body Mass Index) 34.6 kg/m2 03/04/2018 3:07pm Weight 227.44 lb Heart Rate 84 /min BP Systolic 128 mmHg BP Diastolic 82 mmHg Respiratory Rate 16 /min Height 67.5 inches 5'7.50" 03/04/18 ,[employer] BMI (Body Mass Index) 35.1 kg/m2 Last Menstrual Period [id number] reg, no prob 10/06/2017 4:16pm Body Temperature [...] Result H/L Range Note Laboratory test [facility] Throat Culture <pending> finding 9 Laboratory test [facility] HPV [facility] 1 finding 9 [phone] Allia <SEE NOTE> Laboratory test [facility] Pap Smear Thin SEE NOTE 2 finding 9 Prep Affirm [facility] Trichomonas Negative Negative 9 Vaginalis Gardnerella Vaginalis Negative Negative Maddison Species Positive Abnormal Negative Comprehensive Metabolic 09/16/2018 [facility] Glucose 77 mg/dL N 74-106 3 Panel (315)- - BUN 12 mg/dL N 7-18 Creatinine 0.7 mg/dL 0.6-1.3 Glom Filtration Rate, Estimate >60 mL/min >60 If >60 mL/min >60 4 BUN/Creat 17.1 ratio Sodium 140 mmol/L N [...] N 0.2-1.0 Sgot/Ast 11 U/L Low 15-37 5 SGPT/Alt 17 U/L N 12-78 Alkaline Phosphatase 84 U/L N 45-117 Laboratory test 09/16/2018 [facility] Troponin-I < 0.015 ng/mL 6 finding (315)- - HCG,Serum (Qualitative) NEGATIVE (Negative) 7 CBS W/Automated Diff 09/16/2018 [facility] White Blood 8.7 K/uL N 3.1-10.7 (315)- - Count Red Blood Count 4.24 M/uL N 3.90-5.40 [...] 40.4-72.8 Lymph % 33.4 % N 20.0-42.0 [place] % 7.6 % N 4.3-13.2 Eo% 1.5 % N 0.0-6.6 Bas% 0.2 % N 0.0-1.1 Neut# 4.99 K/uL N 1.8-7.0 Lymph # 2.91 K/uL N 1.0-4.0 [place] # 0.66 K/uL N 0.3-0.9 Eos # 0.13 K/uL N 0.0-0.5 Baso # 0.02 K/uL N 0.0-0.1 Laboratory test 09/16/2018 [facility] Slide Review DIFF ORDERED finding (315)- - Differential-WBC 09/16/2018 [facility] Total Cells 100 # CELLS Confirm (315)- - Counted Neutrophils% 49 % N 33-73 Lymph% 34 % N 20-42 Monocyte% 15 % High 0-10 Eosinophil% 1 % N 0-5 Basophil% 1 % N 0-2 Platelet Estimate NORMAL RBC Morphology NORMAL Laboratory test 06/04/2018 [facility] Vaginitis Direct SPECIMEN 8 finding [phone] Test DESCRIP <SEE NOTE> Laboratory test 06/04/2018 [facility] Misc Genital SPECIMEN 9 finding [phone] Culture DESCRIP <SEE NOTE> Laboratory test 06/04/2018 [facility] Urine Culture SPECIMEN 10 finding [phone] DESCRIP <SEE NOTE> Affirm 04/25/2018 [facility] Trichomonas Negative Negative Vaginalis Gardnerella Vaginalis Negative Negative Maddison Species Positive Abnormal Negative GC/Chlamydia By Dna 03/04/2018 [facility] Chlamydia by Dna NEGATIVE Negative Probe Probe GC by Dna Probe NEGATIVE Negative Lipid 03/04/2018 [facility] Cholesterol 298 mg/dL High 50-199 Triglycerides 278 mg/dL High 30-200 HDL 33 mg/dL Low 35-85 11 Chol/ HDL Ratio 9.0 ratio High 3.7-5.6 VLDL 56 mg/dL High 2-29 LDL (Calc) 209 mg/dL High 20-99 12 Laboratory test 03/04/2018 [facility] Hepatitis C NON REACTIVE Non Reactive 13 finding Virus Antibody S/CORatio(Hill Laboratory test 03/04/2018 [facility] Rubella Igg AB EQUIVOCAL AI 14 finding Measles Igg AB EQUIVOCAL AI 15 Mumps Igg (Immune) NEGATIVE AI 16 Varicella Zost Igg POSITIVE AI 17 Hemoglobin A1c 12/23/2016 [facility] Hemoglobin A1c 5.8 % 4.1-5.9 Estimated Average Glucose Calc 120 71-140 Laboratory test finding 12/23/2016 [facility] Glucose 107 mg/dL High 70-105 Laboratory test finding 12/08/2016 [facility] TSH 1.54 uIU/mL 0.35-4.94 Free T4 0.78 ng/dL 0.70-1.48 Basic (BMP) 12/08/2016 [facility] Sodium 138 mmol/L 135-146 18 Potassium 4.2 mmol/L 3.5-5.2 Chloride# 104 mmol/L 97-110 19 Carbon Dioxide 27 mmol/L 24-34 Glucose 147 mg/dL High 70-105 BUN 11 mg/dL 6-26 Creatinine 0.7 mg/dL 0.5-1.4 Calcium 9.6 mg/dL 8.5-10.2 Non Vanessa Egfr >60 >60 20 Vanessa Egfr >60 >60 21 Anion Gap 11 mmol/L 7-16 22 Laboratory test 04/23/2016 [facility] Urine Culture Microbiology res 23 finding <SEE NOTE> Laboratory test 04/03/2016 [facility] Urine Culture Microbiology res 24 finding <SEE NOTE> GC/Chlamydia By 04/03/2016 [facility] Chlamydia by Dna NEGATIVE Negative Dna Probe Probe GC by Dna Probe NEGATIVE Negative Affirm 04/03/2016 [facility] Trichomonas Vaginalis Negative Negative Gardnerella Vaginalis Negative Negative Maddison Species Negative Negative Affirm 12/19/2015 [facility] Trichomonas Vaginalis Negative Negative Gardnerella Vaginalis Negative Negative Maddison Species Positive Abnormal Negative Laboratory test 12/19/2015 [facility] Urine Microbiology res 25 finding Culture <SEE NOTE> Laboratory test 04/05/2015 [facility] HCG, Quant 14652.0 mIU/mL 26 finding (315)- - CBC 04/05/2015 [facility] White Blood 13.6 K/uL High [...] Volume 10.0 fL 8.9-12.4 Urinalysis With 04/04/2015 [facility] Urine Color YELLOW Yellow Microscopic (315)- - Urine Clarity CLEAR Clear Urine Glucose - Dipstick NEGATIVE mg/dL Negative Urine Bilirubin - Dipstick NEGATIVE Negative Urine Ketone NEGATIVE mg/dL Negative Urine Specific [place] <=1.005 Low 1.010-1.030 Urine Blood LARGE High [...] Amorph Sediment SMALL Negative Urine Screen 04/04/2015 [facility] Urine Screen See Note 27 (315)- - Laboratory 03/28/2015 [facility] D-Dimer, 0.61 ug/mL 28 test finding (315)- - Quantitative Laboratory 12/10/2014 [facility] Urine Culture Microbiology res 29 test finding <SEE NOTE> Laboratory 12/10/2014 [facility] HCG,Quant Preg <1 mU/mL 30 test finding GC/Chlamydia 11/27/2014 [facility] Chlamydia by Dna NEGATIVE Negative By Dna Probe Probe GC by Dna Probe NEGATIVE Negative Affirm 11/27/2014 [facility] Trichomonas Vaginalis Negative Negative Gardnerella Vaginalis Positive Abnormal Negative Maddison Species Negative Negative Laboratory test finding 03/11/2014 [facility] Import Abo/RH Type O Pos 31 HCG, Quant 819866.0 mIU/mL 32 Laboratory test 03/11/2014 [facility] Import Urine Amorph [...] 2-5 rbc/hpf 0-7 Urine Screen See Note 33 Urine Specific [place] <=1.005 Low 1.010-1.030 Urine Urobilinogen - Dipstick 0.2 E.U./dL 0.2-1.0 Urine WBC None Seen wbc/hpf 0-7 Laboratory test finding 03/01/2014 [facility] Antibody Detection See Note 34 Antibody Screen Negative Negative Free T4 1.14 ng/dL 0.71-1.85 Hepatitis B Surface Antigen Nonreactive Nonreactive 35 Lead,Blood (Adult) <1 ug/dL 0-19 36 Patient Blood Type O Pos Rapid Plasma Reagin Nonreactive Nonreactive 37 Rubella IgG Antibody Reactive Reactive Rubella IgG Iu/ml 14.7 IU/mL >=10.0 38 Thyroid Stim Hormone 0.63 uIU/mL 0.49-4.67 Varicella-Zoster Virus IgG Ab 509 Immune>165ind 39 CBS W/Automated Diff 03/01/2014 [facility] Import Bas% [...] 30.8-34.3 Mean Platelet Volume 9.7 fL 8.9-12.4 [place] # 0.62 K/uL High 0.0-0.6 [place] % 6.1 % 4.3-13.2 Neut# 7.78 K/uL High 1.0-7.0 Neut% 76.2 % High 28.0-68.0 Platelet Count 355 K/uL 155-360 Red Blood Count 3.95 M/uL 3.90-5.40 Red Cell Distri Width %CV 11.4 % Low 11.7-14.4 Red Cell Distri Width SD 36.4 fl 3-47 White Blood Count 10.2 K/uL 3.1-10.7 Laboratory test 02/19/2014 [facility] HCG, Quant 91995.0 mIU/mL 40 finding Laboratory test 09/21/2013 [facility] Import Maddison Negative [Negati finding species ve] GC / Chlamydia See Note 41 Gardnerella vaginalis Negative [Negative] Trichomonas vaginalis Negative [Negative] Laboratory test 09/21/2013 [facility] Import Culture Urine See Note 42 finding Laboratory test 08/21/2013 N2N/[facility]D Import Maddison species Negative [ Negative finding ] Gardnerella vaginalis Negative [Negative] Trichomonas vaginalis Negative [Negative] Chlamydia/GC Juli 08/21/2013 [facility] Import Chlamydia Negative Negative Trachomatis, Juli Neisseria Gonorrhoeae, Juli Negative Negative Please note: See Note 43 Dna Probe N. Gono & 08/21/2013 [facility] Import Dna Probe For See Note 44 C. Trach. Chlamydia Trac. GC Probe See Note 45 Laboratory test 07/31/2013 N2N/[facility]D Import Maddison Positive High [Negative ] finding species Culture Urine See Note 46 Gardnerella vaginalis Negative [Negative] Trichomonas vaginalis Negative [Negative] Laboratory test 07/31/2013 N2N/[facility]D Import GC / Chlamydia See Note 47 finding Laboratory test 07/31/2013 N2N/CCD Import % Baso. 0.9 % 0.0-2.0 finding % Eos. 0.8 % 0.0-4.0 % Lymph 21 % 20-44 % [place] 5.8 % 2.0-10.0 % Mack 71 % High 50-70 Absolute Baso. 0.1 K/ul 0.0-0.3 Absolute Eos. 0.1 K/ul 0.0-0.5 Absolute Lymph. 2.4 K/ul 0.8-4.8 Absolute Breathitt. 0.7 K/ul 0.1-1.0 Absolute Mack. 8.11 K/ul [...] 4.1-10.9 eGFR 97.2 Laboratory test finding 2013 [facility] Import FT4 1.30 ng/dL 0.75- 1.54 TSH 1.52 uIU/ml 0.50-6.00 Triiodothyronine,Total 114 ng/dL 71-180 48 Laboratory test 07/19/2013 [facility] Import Amphetamines (Urine) Negative finding Barbiturates (Urine) Negative Benzodiazepines (Urine) Negative Cannabinoids (Urine) Positive High Cocaine Metabolite (Urine) Negative Methadone (Urine) Negative Opiates (Urine) Negative Please Note # 49 Urine Cutoffs * 50 Laboratory test 07/19/2013 [facility] Import Throat Culture See Note 51 finding Complete Laboratory test 05/25/2013 [facility] Import Urine Bilirubin - Negative Negative finding Dipstick Urine Blood Negative Negative Urine Clarity Clear Clear Urine Color Yellow Yellow Urine Glucose - Dipstick Negative mg/dL Negative Urine Ketone Negative mg/dL Negative Urine Leuk Esterase Negative Negative Urine Nitrite - Dipstick Negative Negative Urine PH 7.0 6.5-7.5 Urine Protein - Dipstick Negative mg/dL Negative Urine Specific [place] 1.010 1.010-1.030 Urine Urobilinogen - Dipstick 0.2 E.U./dL 0.2-1.0 Laboratory test finding 05/25/2013 [facility] Import A/G Ratio 1.4 ratio Low 1.6-2.2 [...] Protein 8.0 g/dL 6.3-8.2 eGFR 98.5 mi/minper1.73 52 Laboratory test finding 05/25/2013 [facility]2N/[facility] Import Anisocytosis [...] Count 5.5 K/uL 3.1-10.7 Laboratory test 04/03/2013 [facility] Urine HCG Negative Negative 53 finding (Qualitative) Urine Screen 04/03/2013 [facility] Import Urine Bilirubin - Negative Negative Dipstick Urine Blood Negative Negative Urine Clarity Clear Clear Urine Color Yellow Yellow Urine Glucose - Dipstick Negative mg/dL Negative Urine Ketone Trace mg/dL High Negative Urine Leuk Esterase Negative Negative Urine Nitrite - Dipstick Negative Negative Urine PH 6.0 Low 6.5-7.5 Urine Protein - Dipstick Negative mg/dL Negative Urine Specific [place] 1.020 1.010-1.030 Urine Urobilinogen - Dipstick 0.2 E.U./dL 0.2-1.0 Laboratory test 04/03/2013 [facility] Import Amphetamines (Urine) Negative finding Barbiturates (Urine) Negative Benzodiazepines (Urine) Negative Cannabinoids (Urine) Positive High Cocaine Metabolite (Urine) Negative Methadone (Urine) Negative Opiates (Urine) Negative Please Note # 54 Urine Cutoffs * 55 Laboratory test finding 02/21/2013 [facility] Import % Baso. 0.9 % 0.0-2.0 % Eos. 0.4 % 0.0-4.0 % Lymph 23 % 20-44 % [place] 6.1 % 2.0-10.0 % Mack 69 % 50-70 A/G Ratio 1.9 ratio 1.6-2.2 Absolute Baso. 0.1 K/ul 0.0-0.3 Absolute Eos. 0.0 K/ul 0.0-0.5 Absolute Lymph. 2.0 K/ul 0.8-4.8 Absolute Breath[place]. 0.5 K/ul 0.1-1.0 Absolute Mack. 5.91 K/ul [...] WBC 8.5 K/ul 4.1-10.9 eGFR 82.2 mi/minper1.73 56 Laboratory test finding 10/05/2012 [facility]2N/[facility]D Import Maddison Species See Note 57 Culture Urine See Note 58 Gardnerella Vaginalis See Note 59 Trichomonas Vaginalis See Note 60 Laboratory test 06/20/2012 [facility]N/[facility] Import Maddison See Note Treated 61 finding Species W/Terazol Gardnerella Vaginalis See Note 62 Genital Culture See Note 63 Gram Stain See Note 64 Trichomonas Vaginalis See Note 65 Laboratory test finding 05/24/2012 N2N/CCD Import Maddison Species See Note 66 Culture Urine See Note 67 Gardnerella Vaginalis See Note 68 Genital Culture See Note 69 Gram Stain See Note 70 Trichomonas Vaginalis See Note 71 Dna Probe Vashti Everett & 05/24/2012 [facility] Import Dna Probe For See Note 72 C. Trach. Chlamydia Trac. GC Probe See Note 73 Laboratory test finding 01/28/2012 N2N/CCD Import Maddison Species See Note 74 GC / Chlamydia See Note 75 Gardnerella Vaginalis See Note 76 Trichomonas Vaginalis See Note 77 Laboratory test finding 01/28/2012 [facility] Import Antibody Detection See Note 78 HSV II,Igg,Type Specific <0.91 index 0.00-0.90 79 HSV Type I Specific Igg < 0.91 index 0.00-0.90 80 Hepatitis A Antibody IgM Nonreactive Nonreactive 81 Hepatitis B Core IgM Nonreactive Nonreactive 82 Hepatitis B Surface Antigen Nonreactive Nonreactive 83 Hepatitis C Antibody Nonreactive Nonreactive Rapid Plasma Reagin Nonreactive Nonreactive 84 Signal/Cutoff ratio < 0.02 <0.80 85 Laboratory test finding 09/04/2011 [facility] Import A/G [...] g/dL 6.3-8.2 Vitamin D,25-Hydroxy 31.4 ng/mL 30.0-100.0 86 WBC 7.6 K/ul 4.1-10.9 Vitamin B12 And Folate 09/04/2011 [facility] Import Folic Acid 14.8 ng/mL 6.0-15.4 Vitamin B12 413 pg/mL 311-1180 Laboratory test finding 12/25/2009 [facility] Import Free T3 2.46 pg/mL 1.45-3.48 Free T4 1.01 ng/dL 0.71-1.85 Thyroid Stim Hormone 1.34 uIU/mL 0.49-4.67 Laboratory test 12/13/2009 [facility]N/[facility] Import Gallbladder See Note 87 finding Laboratory test 12/11/2009 [facility] Import HCG Serum, Negative finding Qualitative Laboratory test 10/06/2009 [facility] Import Acetaminophen < 1.0 ug/ml Low 10.0-3 88 finding 0.0 Laboratory test 12/01/2006 N2N/CCD Import [...] 31.7-36.0 Mean Platelet Volume 6.7 fl 6.6-10.6 [place] # 0.6 K/uL 0.0-0.6 [place] % 6.8 % 0.0-10.0 Neut# 5.2 K/uL [...] test 11/29/2006 N2N/CCD Import Gentamycin Trough DNR 89 finding Laboratory test 11/29/2006 N2N/CCD Import Gentamycin Peak DNR 90 finding Laboratory test 11/29/2006 N2N/CCD [...] 31.7-36.0 Mean Platelet Volume 7.0 fl 6.6-10.6 [place] # 0.5 K/uL 0.0-0.6 [place] % 5.5 % 0.0-10.0 Neut# 6.8 K/uL [...] Culture 11/26/2006 [facility]D Import Anaerobic Culture <see 91 W/ GR Stain comment> Gram Stain; Anaerobic Specimen <see comment> 92 Laboratory test 11/26/2006 [facility]2N/[facility]D Import Aerobic Culture <see comment> 93 finding Gram Stain <see comment> 94 [address] [place] [address] Amplified Molecular High Risk HPV Test Patient Name:EN ROUSE Patient :1995 Ordering Physician:JAM LACEY CORN BREEDER Accession Number [id number] Specimen(s) Received A: High Risk HPV Thin Prep Endocervical Pap Smear - One Vial Other Case Numbers: [id number] Diagnosis RISK GROUPS RESULTS High Risk NEGATIVE Tested for HPV Types (16, 18, 31, 33, 35, 39, 45, 51, 52, 56, 58, 59, 66, 68) Reported: 11/11/2018 10:49 Electronically Signed Out By Malina Juarez MT wendie Kaur 2 [facility]. [address] [place] [id number] CYTOLOGY REPORT Source of Specimen(s): Thin Prep [...] will be issued. Processed and screened at [facility], Cytology, [address] [place] [address], [id number]. Reported at [facility] at [facility] [place], [address] [place] [address]. Reported: 11/11/2018 19:12 Electronically Signed Out By Sofia Luna M.D. [facility] Digital Production Manager: Elizabeth Cantu CT(ASCP) ICD9 Code: Z01.419 CPT code: A: NF298N, 8814 Unless otherwise specified, testing performed by [facility] [address] [address] 3 CP L SIDE RADIATING DOWN ARM 4 Note: Persistent reduction for 3 months or more in an eGFR <60 mL/min/1.73 m2 defines CKD. Patients with eGFR values >/=60 mL/min/1.73 m2 may also have CKD if evidence of persistent proteinuria is present. The original MDRD equation for estimated GFR is not valid for patients less than 18 years of age. Additional information may be found at www.kdoqi.org. 5 Values below the stated reference ranges of AST and ALT can be seen in normal populations. Clinical correlation is suggested. 6 0.0 - 0.045 ng/mL: Normal 0.046 - 0.5 ng/mL: Suggestive 0.6 - 1.5 ng/mL: Consistent 7 Method: Quidel QuickVue One-Step Immunoassay 8 SPECIMEN DESCRIPTION VAGINAL SPECIMEN RESULT NEGATIVE FOR TRICHOMONAS VAGINALIS BY DNA PROBE NEGATIVE FOR GARDNERELLA VAGINALIS BY DNA PROBE NEGATIVE FOR MADDISON SPECIES BY DNA PROBE REPORT STATUS FINAL 06/04/2018 9 SPECIMEN DESCRIPTION GENITAL SPECIAL REQUESTS NONE CULTURE RESULTS NORMAL VAGINAL MILLER NO NEISSERIA GONORRHOEAE ISOLATED REPORT STATUS FINAL 06/06/2018 10 SPECIMEN DESCRIPTION MIDSTREAM URINE,CLEAN CATCH CULTURE RESULTS NO GROWTH REPORT STATUS FINAL 06/05/2018 11 Per NCEP ATP III Guidelines: Results lower than 40 mg/dL are suggestive of increased risk for coronary artery disease. Results > or=to 60 mg/dL are considered a negative risk factor. 12 Per NCEP ATP III Guidelines: Normal Population <130 Patients with medical conditions: CHD/DM Optimal: <100 Borderline high: 130-159 High: 160-189 Very high: >189 13 S/CO Ratio >/=1.0 is REACTIVE. S/CO <5.0 is Low Reactive. S/CO >/= 5.0 is High Reactive. Effective Mar 26, 2017 all anti-HCV reactive samples are sent for quantitative PCR confirmation. 14 Suggest repeat testing in 2-4 weeks. Unless otherwise specified, testing performed [place] [address] 15 Suggest repeat testing in 2-4 weeks. Unless otherwise specified, testing performed [place] [address] 16 No IgG antibodies specific to Mumps detected. Patient presumed NOT to have had a previous exposure to Mumps through infection or vaccination. Unless otherwise specified, testing performed by [place] [address] 17 IgG antibody to VZV detected. This may indicate that the patient was exposed to VZV through infection or vaccination. Unless otherwise specified, testing performed by [place] [address] 18 Updated reference range on new analyzer 19 Updated reference range on new analyzer 20 Concerning GFR Guidelines: Normal function or mild [...] drugs that are excreted by the kidneys. 21 Concerning GFR Guidelines for Americans: Normal function or mild renal disease, if clinically at risk: >/=60 mL/min Moderately decreased: 30-59 Severely decreased: 15-29 Renal failure: <15 22 Updated reference range on new analyzer 23 Microbiology results SOURCE URINE FINAL RESULT No growth 24 Microbiology results SOURCE URINE COLONY COUNT >100,000 FINAL RESULT Mixed urogenital miller consistent with contamination. Request fresh specimen if indicated. 25 Microbiology results SOURCE URINE FINAL RESULT No growth 26 Approximate Gestational Age and Total BHCG Range: 0.2 - 1 Week........................5-50 mIU/mL 1 - 2 Weeks.....................50-500 mIU/mL 2 - 3 Weeks..................100-5,000 mIU/mL 3 - 4 Weeks.................500-10,000 mIU/mL 4 - 5 Weeks...............1,000-50,000 mIU/mL 5 - 6 Weeks.............10,000-100,000 mIU/mL 6 - 8 Weeks.............15,000-200,000 mIU/mL 2 - 3 Months............10,000-100,000 mIU/mL 27 04/05/15 LAB.TOW Deleted by [facility] 28 <=0.49 ug/mL - Low likelihood of DIC, DVT or Pulmonary Embolism >0.49 ug/mL - Additional testing should be done to rule out DIC, DVT, or Pulmonary embolism as clinically indicated. ([facility] has established a 97.89% negative predictive value for thrombotic disease when a cutoff value of 0.5 ug/mL is used.) 29 Microbiology results SOURCE URINE FINAL RESULT Mixed organisms representing urethral miller. No further workup. 30 INTERPRETATION: LESS THAN 6 NEGATIVE 6 - 10 BORDERLINE (SUGGEST REPEAT IN 48 HOURS) APPROX HCG RANGE WEEKS POST LMP 11 - 130 3 - 4 WEEKS 75 - 2600 4 - 5 WEEKS 850 - 80055 5 - 6 WEEKS 4000 - 996803 6 - 7 WEEKS 02903 - 617417 7 - 12 WEEKS 84502 - 924080 12 - 16 WEEKS 1400 - 50234 16 - 29 WEEKS 940 - 64745 29 - 41 WEEKS Unless otherwise specified, testing performed by [facility] [address] [place] [id number] 31 Blood Type O POS 32 Approximate Gestational Age and Total BHCG Range: 0.2 - 1 Week........................5-50 mIU/mL 1 - 2 Weeks.....................50- 500 mIU/mL 2 - 3 Weeks..................100-5,000 mIU/mL 3 - 4 Weeks.................500-10,000 mIU/mL 4 - 5 Weeks...............1,000-50, 000 mIU/mL 5 - 6 Weeks.............10,000-100,000 mIU/mL 6 - 8 Weeks.............15,000-200,000 mIU/mL 2 - 3 Months............10,000-100, 000 mIU/mL 33 03/11/14 LAB.DWM Deleted by [facility] 34 No reportable results 35 HBsAg not detected; does not exclude the possibility of exposure to or early acute infections with HBV. 36 Environmental Exposure: WHO Recommendation <20 Occupational Exposure: OSHA Lead Std 40 MARIELY 30 Detection Limit=1 37 PENDING; TEST PERFORMED ON MONDAYS AND THURSDAYS 38 Values >=10.0 IU/mL are positive for IgG antibodies to rubella virus and are considered IMMUNE. 39 Negative <135 Equivocal 135 - 165 Positive >165 A positive result generally indicates exposure to the pathogen or administration of specific immunoglobulins, but it is not indication of active infection or stage of disease. Performed at: - [facility] [address] [id number] [employer] Laboratory Director: Madelin Carrasco MD, Phone: [phone] 40 Approximate Gestational Age and Total BHCG Range: 0.2 - 1 Week........................5-50 mIU/mL 1 - 2 Weeks.....................50- 500 mIU/mL 2 - 3 Weeks..................100-5,000 mIU/mL 3 - 4 Weeks.................500-10,000 mIU/mL 4 - 5 Weeks...............1,000-50, 000 mIU/mL 5 - 6 Weeks.............10,000-100,000 mIU/mL 6 - 8 Weeks.............15,000-200,000 mIU/mL 2 - 3 Months............10,000-100, 000 mIU/mL 41 [facility] [address] [place] [address], [address] [place] [address] GC / CHLAMYDIA REPORT Name: En Rouse : 1995 (Age: 18) Sex: F Location: [facility] Med. Rec. # [id number] Date Collected: 09/21/2013 Billing #: [id number] Date Received: 09/21/2013 Requisition # [id number] Physician(s): ELLIE DAVIDSON Source of Specimen: Urine, APTIMA Results: Neisseria gonorrhoeae NEGATIVE Chlamydia trachomatis NEGATIVE Comment: This analysis was performed using second generation nucleic acid amplification testing (NAAT). Reported: 09/22/2013 Electronic Signature kjt [place] [facility] ([facility]) [facility] ICD-9 Codes: 616.10 42 COLONY COUNT ! 10,000 - 20,000 CFU/ml Organism 1 ! MIXED URETHRAL MILLER 43 Acceptable specimens for this test are male urethral swab, endocervical swab and liquid based pap specimens, vaginal swabs in APTIMA transports and first void urine. See online Directory of Services for test number for rectal and pharyngeal specimens. Performed at: - [facility] [address] [id number] [employer] Laboratory Director: Madelin Carrasco MD, Phone: [phone] 44 WRONG ORDER 45 WRONG ORDER 46 NO GROWTH: FINAL REPORT 47 [facility] [address] [place] [address], [place] [address] [place] [address] GC / CHLAMYDIA REPORT Name: En Rouse : 1995 (Age: 18) Sex: F Location: [facility] Med. Rec. # [id number] Date Collected: 07/31/2013 Billing #: [id number] Date Received: 07/31/2013 Requisition # [id number] Physician(s): ELLIE DAVIDSON Source of Specimen: Urine, APTIMA Results: Neisseria gonorrhoeae NEGATIVE Chlamydia trachomatis POSITIVE Result faxed to by Renata 08/01 Lakeisha Comment: This analysis was performed using second generation nucleic acid amplification testing (NAAT). Reported: 08/01/2013 Electronic Signature * isabella Vaughan [facility] ICD-9 Codes: 616.10 48 Performed at: RN - [facility] [address] [id number] [employer] Laboratory Director: Madelin Carrasco MD, Phone: [phone] 49 #THIS URINE SPECIMEN SCREENED POSITIVE FOR ONE OF MORE DRUG CLASSES. POSITIVE FINDINGS ARE UNCONFIRMED. CONFIRMATORY TESTING IS SUGGESTED IF FINDINGS ARE UNEXPECTED. PLEASE CONTACT THE LABORATORY IF CONFIRMATORY TESTING IS DESIRED. 50 *THE SUBMITTED URINE SPECIMEN WAS SCREENED AT THE LISTED CUTOFFS DRUG CLASS INITIAL TEST LEVEL Amphetamines 1000 ng/mL Barbiturates 200 ng/mL Benzodiazepines 200 ng/mL Cannabinoids 50 ng/mL Cocaine Metabolite 300 ng/mL Methadone 300 ng /mL Opiates 300 ng/mL 51 NORMAL THROAT MILLER 52 For -Irish patients multiply result by 1.180 53 FIRST MORNING SPECIMENS GENERALLY CONTAIN THE HIGHEST CONCENTRATION OF HCG AND ARE RECOMMENDED FOR EARLY DETECTION OF . 54 #THIS URINE SPECIMEN SCREENED POSITIVE FOR ONE OF MORE DRUG CLASSES. POSITIVE FINDINGS ARE UNCONFIRMED. CONFIRMATORY TESTING IS SUGGESTED IF FINDINGS ARE UNEXPECTED. PLEASE CONTACT THE LABORATORY IF CONFIRMATORY TESTING IS DESIRED. 55 *THE SUBMITTED URINE SPECIMEN WAS SCREENED AT THE LISTED CUTOFFS DRUG CLASS INITIAL TEST LEVEL Amphetamines 1000 ng/mL Barbiturates 200 ng/mL Benzodiazepines 200 ng/mL Cannabinoids 50 ng/mL Cocaine Metabolite 300 ng/mL Methadone 300 ng /mL Opiates 300 ng/mL 56 For -Irish patients multiply result by 1.180 57 NEGATIVE FOR MADDISON SPECIES Testing Performed by: [place] [address] 58 COLONY COUNT ! 5,000 - 10,000 CFU/ml Organism 1 ! URETHRAL MILLER 59 POSITIVE FOR GARDNERELLA VAGINALIS 60 NEGATIVE FOR TRICHOMONAS VAGINALIS 61 POSITIVE FOR MADDISON SPECIES Testing Performed by: [place] [address] 62 NEGATIVE FOR GARDNERELLA VAGINALIS 63 Organism 1 ! YEAST LIKE ORGANISM QUANTITY ! MANY 64 GRAM STAIN ! GRAM STAIN INDICATES NORMAL GENITAL MILLER ! MODERATE GR POS. BACILLI SUGGESTIVE OF LACTOBACILLUS ! SP. ! VERY FEW GRAM VARIABLE COCCOBACILLI ! MODERATE YEAST LIKE ORGANISMS 65 NEGATIVE FOR TRICHOMONAS VAGINALIS 66 NEGATIVE FOR MADDISON SPECIES Testing Performed by: [place] [address] 67 COLONY COUNT ! 10,000 - 20,000 CFU/ml Organism 1 ! URETHRAL MILLER 68 POSITIVE FOR GARDNERELLA VAGINALIS 69 Organism 1 ! GARDNERELLA VAGINALIS QUANTITY ! MANY 70 GRAM STAIN ! GRAM STAIN SUSPICIOUS FOR BACTERIAL VAGINOSIS ! MANY GRAM VARIABLE COCCOBACILLI 71 NEGATIVE FOR TRICHOMONAS VAGINALIS 72 NEGATIVE FOR CHLAMYDIA TRACHOMATIS BY DNA HYBRIDIZATION ASSAY. THIS TEST IS APPROVED FOR OCULAR AND UROGENITAL SITES ONLY. 73 NEGATIVE FOR NEISSERIA GONORRHOEAE BY DNA HYBRIDIZATION ASSAY. THIS METHOD IS APPROVED FOR UROGENITAL SITES ONLY. 74 NEGATIVE FOR MADDISON SPECIES Testing Performed by: [place] [address] 75 [facility] [address] [place] [address], [address] [place] [address] GC / CHLAMYDIA REPORT Name: En Rouse : 1995 (Age: 16) Sex: F Location: [facility] Soc. Sec. #: [id number] Date Collected: 01/28/2012 Billing #: [id number] Date Received: 01/28/2012 Med. Rec. # [id number] Requisition # [id number] Physician(s): ELLIE DAVIDSON Source of Specimen: Urine, APTIMA Results: Neisseria gonorrhoeae NEGATIVE Chlamydia trachomatis NEGATIVE Comment: This analysis was performed using second generation nucleic acid amplification testing (NAAT). Reported: 01/29/[address] Renata Vaughan [facility] ICD-9 Codes: A: V72.31 76 POSITIVE FOR GARDNERELLA VAGINALIS 77 NEGATIVE FOR TRICHOMONAS VAGINALIS 78 No reportable results 79 Negative <0.91 Equivocal 0.91 - 1.09 Positive >1.09 Note: Negative indicates no antibodies detected to HSV-2. Equivocal may suggest early infection. If clinically appropriate, retest at later date. Positive indicates antibodies detected to HSV-2; coinfection with HSV-1 cannot be excluded without type specific testing. 80 Negative <0.91 Equivocal 0.91 - 1.09 Positive >1.09 Note: Negative indicates no antibodies detected to HSV-1. Equivocal may suggest early infection. If clinically appropriate, retest at later date. Positive indicates antibodies detected to HSV-1; coinfection with HSV-2 cannot be excluded without type specific testing. Performed at: - [facility] [id number] [employer] Laboratory Director: Jerome Sandoval MD, Phone: [phone] 81 IgM antibodies to HAV not detected; does not exclude early acute or recovered HAV infection. 82 IgM anti-HBc not detected. Does not exclude the possibility of exposure to or infection with HBV. 83 HBsAg not detected; does not exclude the possibility of exposure to or early acute infections with HBV. 84 PENDING; TEST PERFORMED ON MONDAYS AND THURSDAYS 85 Antibodies to HCV not detected; does not exclude early acute HCV infection. 86 Vitamin D deficiency has been defined by the [place] of [employer] and an Endocrine Society practice guideline as a level of serum 25-OH vitamin D less than 20 ng/mL (1,2). The Endocrine Society went on to further define vitamin D insufficiency as a level between 21 and 29 ng/mL (2). 1. IOM ([place] of [employer]). 2011. Dietary reference intakes for calcium and D. [place]: The National Academies Press. 2. Deborah MF, Yaw RIGGINS, Delores ISSA, et al. Evaluation, treatment, and prevention of vitamin D deficiency: an Endocrine Society clinical practice guideline. JCEM. 2010; 96(7):1911-30. Performed at: RN - [facility] [address] [id number] [employer] Laboratory Director: Jerome Sandoval MD, Phone: [phone] 87 OPERATION/PROCEDURE Cholecystectomy DIAGNOSIS: "GALLBLADDER": CHRONIC CHOLECYSTITIS, AND CHOLELITHIASIS. NO EVIDENCE OF DYSPLASIA NOR NEOPLASIA APPRECIATED. JW/clf GROSS The specimen is received in a [...] cm. It does not obstruct the neck. College Counselor sections are submitted within a single cassette. WS/clf MICROSCOPIC Sections show gallbladder mucosa lined by columnar epithelium with focal synechia, and Rokitansky-Aschoff sinus formation. The submucosa has a mild infiltrate of lymphocytes and plasma cells. The muscular wall is slightly fibrotic and hypertrophied. PRE OPERATIVE DIAGNOSIS Cholelithiasis REVIEW CODE CODE: I ----- Signed JASON THOMAS MD 12/17/09 ----- 88 POTENTIAL TOXICITY VARIES WITH TIME FROM INGESTION. PLEASE CONSULT APPROPRIATE NOMOGRAM. 89 WRONG TIME 90 WRONG TIME 91 Organism 1 ! BACT. FRAGILIS {PRESUMPTIVE} RECOMMENDED THERAPY: ! METRONDIAZOLE OR CLINDAMYCIN. 92 GRAM STAIN ! MANY GRAM POSITIVE COCCI MANY GRAM NEGATIVE BACILLI VERY FEW GRAM POSITIVE BACILLI 93 Organism 1 ! ESCHERICHIA COLI QUANTITY ! [...] <=0.5 S 1.56 CEFUROXIME <= 4 S 94 GRAM STAIN ! MANY GRAM POSITIVE COCCI MANY GRAM NEGATIVE BACILLI VERY FEW GRAM POSITIVE BACILLI Procedures Date Code Description Status 12/08/2018 99850 Measure Blood Oxygen Level Single Determination Completed 11/08/2018 66567 Brief Emotional/Behav Assessment W/ Scoring Doc Per Completed Standard Inst 06/09/2018 15829 Measure Blood Oxygen Level Single Determination Completed 04/01/2018 11387 Measure Blood Oxygen Level Single Determination Completed 10/06/2017 84561 Measure Blood Oxygen Level Single Determination Completed 12/07/2016 34648 Electrocardiogram Complete Completed 03/19/2016 95901 ECHO Transthoracis 2D W Spectral Doppler Completed 03/09/2016 21426 Spirometry /PFT W/O Bronchodialator Completed 03/09/2016 92462 PFT W/O Bronchodilator Completed 03/09/2016 20475 Measure Blood Oxygen Level Single Determination Completed 02/05/2016 84706 Measure Blood Oxygen Level Single Determination Completed 02/05/2016 46546 Electrocardiogram Complete Completed 01/20/2016 46621 Measure Blood Oxygen Level Single Determination Completed 12/10/2015 32844 Measure Blood Oxygen Level Single Determination Completed 11/15/2015 48198 Measure Blood Oxygen Level Single Determination Completed 11/08/2015 55285 Measure Blood Oxygen Level Single Determination Completed 10/22/2015 12753 Measure Blood Oxygen Level Single Determination Completed 10/15/2015 62830 Electrocardiogram Complete Completed 06/11/2015 36075 Measure Blood Oxygen Level Single Determination Completed Encounters Type Date Location Provider Dx Diagnosis Office Visit 11/08/2018 [facility] Jodee Lacey.419 Encntr for viscosity inspector exam 2:30p Jam, CORN BREEDER (general) (routine) w/o abn findings J30.9 Allergic rhinitis, unspecified R00.2 Palpitations R51 Headache E66.9 Obesity, unspecified N91.2 Amenorrhea, unspecified Z13.31 Encounter for screening for depression Z68.33 Body mass index (BMI) 33.0-33.9, adult Office Visit 06/09/2018 10:30a [facility] Oxana Will PA J20.9 Acute bronchitis, unspecified Z68.31 Body mass index (BMI) 31.0-31.9, adult Office Visit 06/04/2018 8:45a [facility] Jam Lacey, N76.0 Acute vaginitis CORN BREEDER Office Visit 05/31/2018 11:00a [facility] Jam Lacey, L03.113 Cellulitis of RIGHT CORN BREEDER upper limb Office Visit 04/25/2018 4:00p [facility] Jam Lacey, N76.0 Acute vaginitis CORN BREEDER Z68.33 Body mass index (BMI) 33.0-33.9, adult Office Visit 04/01/2018 2:45p [facility] Jam Lacey, J06.9 Acute upper CORN BREEDER respiratory infection, unspecified Office Visit 03/21/2018 9:15a [facility] Schedule, Nurses Z11.1 Encounter for screening for respiratory tuberculosis Office Visit 03/07/2018 9:15a [facility] Schedule, Nurses Z11.1 Encounter for screening for respiratory tuberculosis Office Visit 03/04/2018 3:00p [facility] Jam Lacey, Z00.00 Encntr for general CORN BREEDER adult medical exam w/o abnormal findings J30.9 Allergic rhinitis, unspecified Z11.59 Encounter for screening for other viral diseases Z13.220 Encounter for screening for lipoid disorders Z11.1 Encounter for screening for respiratory tuberculosis Z68.35 Body mass index (BMI) 35.0-35.9, adult Office Visit 10/06/2017 4:15p [facility] Aftab Laceyia, J20.9 Acute bronchitis, CORN BREEDER unspecified Office Visit 09/20/2017 3:00p [facility] Jam Lacey, F41.1 Generalized anxiety CORN BREEDER disorder J30.9 Allergic rhinitis, unspecified Z23 Encounter for immunization Z68.37 Body mass index (BMI) 37.0-37.9, adult Office Visit 03/18/2017 2:45p [facility] Shawn Bravo DO F41.1 Generalized anxiety disorder Office Visit 12/07/2016 4:15p [facility] Shawn Bravo DO R00.0 Tachycardia, unspecified Z68.42 Body mass index (BMI) 45.0-49.9, adult Office Visit 04/23/2016 1:00p [facility] Ellie Boles PA R35.0 Frequency of micturition H01.003 Unspecified blepharitis RIGHT eye, unspecified eyelid Office Visit 04/03/2016 1:00p [facility] Ellie Boles PA R10.30 Lower abdominal pain, unspecified Z11.3 Encntr screen for infections w sexl mode of transmiss Office Visit 03/09/2016 11:15a [facility] Shawn Bravo DO R06.02 Shortness of breath R00.2 Palpitations Office Visit 02/05/2016 4:15p [facility] DigJam rivera CORN BREEDER R00.2 Palpitations F41.1 Generalized anxiety disorder R06.02 Shortness of breath Z68.39 Body mass index (BMI) 39.0-39.9, adult Office Visit 01/20/2016 1:00p [facility] Ellie Boles PA R00.2 Palpitations Office Visit 12/31/2015 11:30a [facility] Ellie Boles PA F41.1 Generalized anxiety disorder E66.3 Overweight Office Visit 12/19/2015 1:00p [facility] Ellie Boles, N89.8 Other specified PA noninflammatory disorders of vagina Office Visit 12/10/2015 1:45p [facility] Ellie Boles, R07.9 Chest pain, unspecified PA Office Visit 11/29/2015 10:15a [facility] Ellie Boles, F41.1 Generalized anxiety PA disorder R06.02 Shortness of breath Office Visit 11/15/2015 10:00a [facility] Ellie Boles PA F41.1 Generalized anxiety disorder R06.02 Shortness of breath Office Visit 11/08/2015 11:00a [facility] Ellie Boles PA R07.9 Chest pain , unspecified R06.02 Shortness of breath F41.1 Generalized anxiety disorder M79.605 Pain in LEFT leg Office Visit 10/22/2015 10:00a [facility] Ellie Boles, H68.003 Unspecified Eustachian PA salpingitis, bilateral Office Visit 10/15/2015 1:45p [facility] Ellie Boles, R07.9 Chest pain, PA unspecified Office Visit 06/11/2015 11:15a [facility] Ellie Boles, R07.9 Chest pain, PA unspecified Office Visit 12/10/2014 1:45p [facility] Ellie Boles, 626.0 Menstruation Absence PA 789.09 Pain Abdominal Other Spec Site Office Visit 11/27/2014 1:00p [facility] Ellie Boles, PA 789.09 Pain Abdominal Other Spec Site V74.5 Screening Examination Venereal Disease Plan of Treatment Future Appointment(s):05/15/2019 3:00 pm - Jam Lacey NP at [facility]03/06 3:00 pm - Jam Lacey NP at [facility]12/08/2018 - Nica Robison, MDR50.9 Fever, unspecifiedComments:We will be sending for a throat culture.Follow up:Follow up as scheduled.J02.9 Acute pharyngitis, unspecifiedFollow up:Patient will be treated with an amoxicillin 1 tablet BID for 10 days. We will do a rapid flu test.Her PCP is Dr. Rahman and we will be sending a copy for him. Patient was educated about rapid strep.
[2019-01-07 08:33] VITALS: BP 134/87
--- NOTE | 2019-01-07 08:37 | UC ---
Throat Pain/Nasal Jono HPI - HPI Summary HPI Summary: Patient has had a sore throat for the past 2 or 3 days. She also has a canker sore on the side of her tongue which she states is more painful. Patient states she is 2-3 days late with her menstrual cycle. She is sexually active with no use of control. - History of Current Complaint Chief Complaint: UCGeneralIllness Stated Complaint: SORE THROAT TONGUE/ORAL Time Seen by Provider: 01/07/19 08:32 Hx Obtained From: Patient Hx Last Menstrual Period: 11/19/18 ?: No Onset/Duration: Gradual Onset Severity: Moderate Pain Intensity: 7 Cough: None - Allergies/Home Medications Allergies/Adverse Reactions: Allergies Allergy/AdvReac Type Severity Reaction Status Date / Time No Known Allergies Allergy Verified 01/07/19 08:33 Home Medications: Home Medications Cetirizine HCl [Zyrtec] 10 mg PO DAILY 01/07/19 [History Confirmed 01/07/19] PMH/Surg Hx/FS Hx/Imm Hx Previously Healthy: Yes - Surgical History Surgical History: Yes Surgery Procedure, Year, and Place: Gall Bladder, 2008. [place], 2005. gastric sleeve 03/2017 - Family History Known Family History: Positive: Cardiac Disease, Hypertension Negative: Diabetes - Social History Alcohol Use: Occasionally Alcohol Amount: 2 DRINKS IN 6 MONTHS Substance Use Type: Marijuana Substance Use Comment - Amount & Last Used: multiple times a week Smoking Status (MU): Never Smoked Tobacco Have You Smoked in the Last Year: No - Immunization History Most Recent Influenza Vaccination: NOT YET 2017 Most Recent Tetanus Shot: 07/25/15 Most Recent Pneumonia Vaccination: n/a Review of Systems All Other Systems Reviewed And Are Negative: Yes ENT: Positive: Sore Throat, Other - Patient has a canker sore on the left side of her tongue. She states she's had a history of this but never this bad. Is Patient Immunocompromised?: No Physical Exam Triage Information Reviewed: Yes Appearance: Well-Appearing, No Pain Distress, Well-Nourished Vital Signs: Initial Vital Signs Temp 99.2 F 01/07/19 08:28 Pulse 109 01/07/19 08:28 Resp 18 01/07/19 08:28 BP 134/87 01/07/19 08:28 Pulse Ox 99 01/07/19 08:28 Vital Signs Reviewed: Yes Eyes: Positive: Conjunctiva Clear ENT: Positive: Pharyngeal erythema, TMs normal, Uvula midline Neck: Positive: Supple, Nontender, No Lymphadenopathy Respiratory: Positive: Lungs clear, Normal breath sounds, No respiratory distress, No accessory muscle use Cardiovascular: Positive: RRR, No Murmur, Pulses Normal, Brisk Capillary Refill Musculoskeletal Exam: Normal Neurological Exam: Normal Psychological Exam: Normal Skin Exam: Normal Throat Pain/Nasal Course/Dx - Course Course Of Treatment: Rapid strep test is negative. I'm going to start her on amoxicillin 875 mg by mouth twice a day 10 days. Her test was negative. She is to follow- up with her primary care provider if no improvement in 2 or 3 days however if worsening symptoms which feels like she can't swallow or difficulty breathing she is to go to the ER. - Differential Dx/Diagnosis Provider Diagnosis: Pharyngitis, Aphthous ulcer of tongue Discharge - Sign-Out/Discharge Documenting (check all that apply): Patient Departure All imaging exams completed and their final reports reviewed: No Studies - Discharge Plan Condition: Fair Disposition: HOME Prescriptions: Amoxicillin PO (*) [Amoxicillin 875 MG (*)] 875 mg PO BID 10 Days #20 tab Patient Education Materials: Pharyngitis (ED), Canker Sores (ED) Referrals: Natasha Cobb [Primary Care Provider] - Additional Instructions: Warm saltwater swishes 4-6 times a day. Definite follow-up if conditions worsen to the point where you feel like he can't swallow or difficulty breathing. Follow-up with your primary care provider if no improvement in 2-3 days. - Billing Disposition and Condition Condition: FAIR Disposition: Home
== END 2019-01-07 09:03 | disposition home or self-care (01) ==
LOC: UCCORT 08:22
DX: J02.9 Acute pharyngitis, unspecified (principal); K12.0 Recurrent oral aphthae; Z32.02 Encounter for pregnancy test, result negative
CPT/HCPCS: 84702; 87651; 99212; G0463

== ENCOUNTER 2019-05-09 10:23 | Emergency (ER) | payer OTHER, BC, MEDICAID ==
[2019-05-09 11:05] VITALS: BP 141/78
--- NOTE | 2019-05-09 11:24 | UC ---
Complaint Female HPI - HPI Summary HPI Summary: concern about STDs mild vaginal irritation , ? yeast infection no vaginal discharge, has a new partner , would like to be sure that she is clear of STD no fever, no disuria - History Of Current Complaint Chief Complaint: UCGU Stated Complaint: PERSONAL Time Seen by Provider: 05/09/19 10:59 Hx Obtained From: Patient Hx Last Menstrual Period: 04/09/19 ?: No Onset/Duration: Gradual Onset Timing: Constant Severity Initially: Mild Severity Currently: Mild Pain Intensity: 3 Character: Not Applicable Aggravating Factor(s): Nothing Alleviating Factor(s): Nothing Associated Signs And Symptoms: Negative: Fever, Back Pain, Vaginal Bleeding/ Discharge, Vaginal Discharge, Nausea, Vomiting(# Of Episodes =), Genital Swelling, Genital Blisters, Retained Foregin Body (Specify) - Allergies/Home Medications Allergies/Adverse Reactions: Allergies Allergy/AdvReac Type Severity Reaction Status Date / Time No Known Allergies Allergy Verified 05/09/19 10:59 PMH/Surg Hx/FS Hx/Imm Hx Previously Healthy: Yes - Surgical History Surgical History: Yes Surgery Procedure, Year, and Place: Gall Bladder, 2008. [place], 2005. gastric sleeve 03/2017 - Family History Known Family History: Positive: Cardiac Disease, Hypertension Negative: Diabetes - Social History Alcohol Use: Occasionally Alcohol Amount: 2 DRINKS IN 6 MONTHS Substance Use Type: None Substance Use Comment - Amount & Last Used: multiple times a week Smoking Status (MU): Never Smoked Tobacco Have You Smoked in the Last Year: No - Immunization History Most Recent Influenza Vaccination: NOT YET 2016 Most Recent Tetanus Shot: 07/25/15 Most Recent Pneumonia Vaccination: n/a Review of Systems All Other Systems Reviewed And Are Negative: Yes Constitutional: Positive: Negative Skin: Positive: Negative Eyes: Positive: Negative ENT: Positive: Negative Is Patient Immunocompromised?: No Physical Exam Triage Information Reviewed: Yes Appearance: Well-Appearing, No Pain Distress, Well-Nourished Vital Signs: Initial Vital Signs Temp 98.6 F 05/09/19 11:00 Pulse 93 05/09/19 11:00 Resp 15 05/09/19 11:00 BP 141/78 05/09/19 11:00 Pulse Ox 99 05/09/19 11:00 Vital Signs Reviewed: Yes Eye Exam: Normal Eyes: Positive: Conjunctiva Clear ENT: Positive: Normal ENT inspection, Hearing grossly normal, Pharynx normal Neck exam: Normal Respiratory: Positive: Chest non-tender, Lungs clear, Normal breath sounds Cardiovascular: Positive: RRR, No Murmur, Pulses Normal Abdomen Description: Positive: Nontender, Soft. Negative: CVA Tenderness (R), CVA Tenderness (L), Distended, Guarding Bowel Sounds: Positive: Present UC Physical Exam Vital Signs On Initial Exam: Initial Vitals Temp Pulse Resp BP Pulse Ox 98.6 F 93 15 141/78 99 05/09/19 11:00 05/09/19 11:00 05/09/19 11:00 05/09/19 11:00 05/09/19 11:00 - Genitalia Exam Female Genitourinary: Other - not done at this visit Complaint Female Dx - Differential Dx/Diagnosis Provider Diagnosis: Concern about STD in female without diagnosis Discharge ED - Sign-Out/Discharge Documenting (check all that apply): Patient Departure All imaging exams completed and their final reports reviewed: No Studies - Discharge Plan Condition: Stable Disposition: HOME Prescriptions: Fluconazole 150 MG TAB* [Diflucan 150 MG TAB*] 150 mg PO UC ONCE #1 tablet Patient Education Materials: Sexually Transmitted Diseases (ED) Referrals: Natasha Cobb [Primary Care Provider] - If Needed Additional Instructions: will check for GC / Chlamydia / Trich please call the office in 2 days for the lat results - Billing Disposition and Condition Condition: STABLE Disposition: Home
[2019-05-10 13:55] LABS: Chlamydia trachomatis NAA Negative (Negative); Neisseria gonorrhoeae (GC) NAA Negative (Negative)
--- NOTE | 2019-05-11 07:18 | UC ---
- Progress Note Progress Note: please notify patient that prelim culture of urine suspicious for UTI will ERx keflex 500mg BID x 7 days Final results pending Course/Dx - Diagnoses Provider Diagnoses: Concern about STD in female without diagnosis Discharge ED - Sign-Out/Discharge Documenting (check all that apply): Post-Discharge Follow Up All imaging exams completed and their final reports reviewed: No Studies - Discharge Plan Condition: Stable Disposition: HOME Prescriptions: Cephalexin CAP* [Keflex CAP*] 500 mg PO BID #14 cap Fluconazole 150 MG TAB* [Diflucan 150 MG TAB*] 150 mg PO UC ONCE #1 tablet Patient Education Materials: Sexually Transmitted Diseases (ED) Referrals: Natasha Cobb [Primary Care Provider] - If Needed Additional Instructions: will check for GC / Chlamydia / Trich please call the office in 2 days for the lat results - Billing Disposition and Condition Condition: STABLE Disposition: Home
--- NOTE | 2019-05-12 07:17 | UC ---
- Progress Note Progress Note: Call to advise that the urine culture had mixed growth of bacteria, so most likely this was contanimant. It is ok to stop the antibiotic. If she has persistent symptoms, it would be best to submit a new urine sample. Confirm that she knows that GC and Chlamydia are negative. Course/Dx - Diagnoses Provider Diagnoses: Concern about STD in female without diagnosis Discharge ED - Sign-Out/Discharge Documenting (check all that apply): Patient Departure All imaging exams completed and their final reports reviewed: No Studies - Discharge Plan Condition: Stable Disposition: HOME Prescriptions: Cephalexin CAP* [Keflex CAP*] 500 mg PO BID #14 cap Fluconazole 150 MG TAB* [Diflucan 150 MG TAB*] 150 mg PO UC ONCE #1 tablet Patient Education Materials: Sexually Transmitted Diseases (ED) Referrals: Natasha Cobb [Primary Care Provider] - If Needed Additional Instructions: will check for GC / Chlamydia / Trich please call the office in 2 days for the lat results - Billing Disposition and Condition Condition: STABLE Disposition: Home
== END 2019-05-09 11:43 | disposition home or self-care (01) ==
LOC: UCCORT 10:23
DX: N89.8 Other specified noninflammatory disorders of vagina (principal)
CPT/HCPCS: 81003; 84702; 87086; 87491; 87591; 87661; 99212; G0463